=== PATIENT | female | born 1965 | race Caucasian/White ===

== ENCOUNTER 2022-09-21 18:54 | Emergency (ER) | payer OTHER, SELFPAY ==
--- NOTE | ~2022-09-21 | CT_ITS ---
EXAMINATION: CT ABDOMEN AND PELVIS WITHOUT CONTRAST CLINICAL INFORMATION: Left lower abdominal pain. COMPARISON: None available. TECHNIQUE: Multidetector volumetric imaging was performed from the superior aspect of the liver through the pubic symphysis. Sagittal and coronal reformatted images were obtained on the technologist's workstation. This CT examination was performed using dose optimization techniques as appropriate, variously including the following: *Automated exposure control *Adjustment of mA and/or kV according to patient size (this includes techniques or standardized protocols for targeted exams where dose is matched to indication/reason for exam; i.e. extremities or head) *Use of iterative reconstruction technique DLP: 612 mGy-cm FINDINGS: LUNG BASES: The lung bases are clear. Coronary artery calcifications are present. LIVER, GALLBLADDER, AND BILIARY TREE: The liver is normal in size, shape, and attenuation. No biliary ductal dilatation there is a 0.7 cm hypoattenuating lesion in segment 6 of the liver which is too small to further characterize.. The gallbladder is unremarkable with no evidence of radiopaque gallstones, gallbladder wall thickening, or obvious pericholecystic inflammatory changes. PANCREAS: Unremarkable. SPLEEN: Unremarkable. ADRENAL GLANDS: Unremarkable. KIDNEYS AND URETERS: The kidneys are normal in size, shape, and attenuation. Mild left hydronephrosis. 0.4 cm calculus in the proximal left ureter at the level of L2-L3. BLADDER: Unremarkable. GASTROINTESTINAL TRACT: The stomach is unremarkable. Normal caliber of the small bowel. No obstruction. Normal appendix. Colonic diverticulosis without diverticulitis. No wall thickening or inflammation. No free air or free fluid. ABDOMINAL WALL: No significant hernia is appreciated. LYMPH NODES: Normal. VASCULAR: Normal caliber aorta with moderate atherosclerotic calcification. PELVIC VISCERA: The uterus and adnexa are unremarkable. OSSEOUS STRUCTURES: No acute or suspicious osseous abnormality. Degenerative change throughout the spine. Vacuum disc phenomenon seen throughout the lumbar spine. Grade 1 retrolisthesis of L5 on S1. Grade 1 anterolisthesis of L4 on L5. CT/CT abdomen pelvis wo IV con IMPRESSION: Mild left hydronephrosis with a 0.4 cm calculus in the proximal left ureter. Fleischner guidelines were followed.
[2022-09-21 19:19] VITALS: BP 146/86; PULSE 80; RESP 18; TEMP 36.8; O2SAT 94
--- NOTE | 2022-09-21 19:20 | ED.GENADULT ---
HPI - General Adult General Chief complaint: Recheck/Abnormal Lab/Rx Stated complaint: abnormal labs Time Seen by Provider: 09/21/22 22:47 Source: patient Mode of arrival: ambulatory Limitations: no limitations History of Present Illness HPI narrative: Patient no significant past medical history complaining of left lower abdominal pain for last 3 days was at [facility] but left without being seen by MD labs drawn showed elevated WBC count patient continued to have pain off and on has gone now no fever no chills no blood in the stool, no urinary complaints never had similar pain in the past Related Data Previous Rx's Medication Instructions Recorded cefuroxime axetil 250 mg tablet 250 mg PO BID 7 days #14 tabs 09/22/22 oxycodone-acetaminophen 5 mg-325 1 tab PO Q6H PRN pain #20 tabs 09/22/22 mg tablet (Percocet) Allergies Allergy/AdvReac Type Severity Reaction Status Date / Time codeine Allergy Unknown Unknown Verified 09/21/22 19:24 latex Allergy Unknown Unknown Verified 09/21/22 19:24 Review of Systems Review of Systems: Yes all other systems are reviewed and are negative REPLACED BY [facility] Social History Social History Advance Directives: No Advance Directives Information Provided: Yes Physical Exam ED Vital Signs: Vital Signs - 24 hr 09/21/22 19:19 09/21/22 23:30 Temperature 98.3 F 97.0 F Pulse Rate 80 79 Respiratory Rate 18 18 Blood Pressure 146/86 H 125/68 Pulse Oximetry 94 94 Oxygen Delivery Method Room Air Room Air BMI result Body Mass Index 30.0 Appearance: Alert. Oriented X3. No acute distress. Eyes: PERRLA, No Nystagmus ENT: Pharynx normal. Oral Mucosa moist Neck: Normal inspection. Neck supple. CVS: Normal heart rate and rhythm. Pulses normal. Respiratory: No respiratory distress. Equal air entry bilateral, no wheezing/rales/rhonchi Abdomen: Soft , mild deep tenderness left lower quadrant. Bowel sounds are present, no mass palpable, no CVA tenderness Skin: Skin warm and dry. Normal skin color. Normal skin turgor. Extremities: No lower extremity edema. No calf tenderness Neuro: Oriented X 3. No motor deficit. Course Course Course Narrative: RME: 57yo F w/no sig PMHx sent in by PCP for abnormal WBC count & low K+ on labs at [facility] ED on Wednesday. Patient eloped after triage due to wait time. Admits to L sided abdominal pain, burping, gas pains. Denies nausea, fever, urinary sx abdomen soft w/LLQ ttp, no rebound or guarding Labs, UA ordered * obtained records from [facility] from 09/19/2022, patient had WBC count of 19.6, potassium 3.4 Full HPI, ROS and PE to be performed by primary ED provider. Medications Administered Discontinued Medications Generic Name Dose Route Start Last Admin Trade Name Freq PRN Reason Stop Dose Admin Cefuroxime Axetil 250 mg 09/22/22 00:55 09/22/22 01:09 Cefuroxime Axetil 250 Mg Tablet PO 09/22/22 00:56 250 mg ONCE ONE Administration Oxycodone HCl 10 mg 09/22/22 00:55 09/22/22 01:09 Oxycodone Hcl Immed Release 5 Mg Tablet PO 09/22/22 00:56 10 mg ONCE ONE Administration Potassium Chloride 20 meq 09/22/22 00:57 09/22/22 01:09 Potassium Chloride Er 20 Meq Tab.Er.Prt PO 09/22/22 00:58 20 meq ONCE ONE Administration Medical Decision Making Medical Decision Making [facility] Narrative: Patient abdominal pain CT scan showed small 4 mm left ureteric stone patient is almost pain-free with discharge patient on pain medication so advised to follow-up with urologist Differential Diagnosis Differential Diagnoses: The differential diagnosis associated with the presentation includes Kidney stone/diverticulitis/diverticulosis/IBS/constipation Lab Data [facility] Lab Attestation statement: I reviewed the patient's lab results. 09/21/22 20:21 09/21/22 20:21 Labs: Lab Results 09/21/22 09/21/22 09/21/22 Range/Units 20:21 20:21 23:33 WBC 13.4 H (4.8-10.8) X10*3/uL RBC 3.90 L (4.20-5.50) X10*6/uL Hgb 12.7 (12.0-16.0) g/dl Hct 37.5 (37.0-47.0) % MCV 96.2 (80.0-98.0) fL MCH 32.6 (27.0-33.0) pg MCHC 33.9 (31.0-35.0) g/dl RDW 13.0 (11.0-16.0) % Plt Count 258 (160-400) X10*3/uL MPV 10.3 (9.4-12.3) fL Immature Gran % (Auto) 0.7 H (0.0-0.4) % Neut % (Auto) 52.8 (45-73) % Lymph % (Auto) 36.8 (20-40) % [place] % (Auto) 8.2 (2-11) % Eos % (Auto) 0.9 (0-4) % Baso % (Auto) 0.6 (0-2) % Lymph # (Auto) 5.0 H (1.2-4.9) X10*3/uL [place] # (Auto) 1.1 (0.1-1.2) X10*3/uL Eos # (Auto) 0.1 (0.0-0.4) X10*3/uL Baso # (Auto) 0.1 (0.0-0.2) X10*3/uL Abs Immat Gran (auto) 0.09 H (0.00-0.03) X10*3/uL Absolute Neuts (auto) 7.1 (2.0-8.3) x10*3/uL Absolute Nucleated RBC 0.000 (0.0-0.012) X10*3/uL Nucleated RBC % (auto) 0.0 (0.0-0.2) /100WBC Sodium 140 (135-145) mmol/L Potassium 3.1 L (3.3-5.1) mmol/L Chloride 103 (96-108) mmol/L Carbon Dioxide 29 (22-29) mmol/L Anion Gap 11 L (12-20) BUN 15 (9-16) mg/dL Creatinine 0.76 (0.5-1.4) mg/dL Estim Creat Clear Calc 84.1 Estimated GFR > 60 Random Glucose 113 (60-115) mg/dL Calcium 9.6 (8.4-10.2) mg/dL Magnesium 2.0 (1.6-2.6) mg/dL Total Bilirubin 0.4 (0.0-1.0) mg/dL Direct Bilirubin 0.1 (0.0-0.5) mg/dL AST 22 (5-31) U/L ALT 17 (0-31) U/L Alkaline Phosphatase 87 (39-117) U/L Total Protein 7.4 (6.5-8.0) g/dL Albumin 3.8 (3.5-5.0) g/dL Lipase 13 (8-78) U/L Urine Color Yellow Urine Appearance Clear Urine pH 6.0 (5.0-9.0) Ur Specific [place] 1.020 (1.005-1.025) Urine Protein Trace (Neg-Trace) mg/dL Urine Glucose (UA) Negative (Negative) mg/dL Urine Ketones Negative (Negative) mg/dL Urine Blood Trace H (Negative) Urine Nitrite Negative (Negative) Ur Leukocyte Esterase Small (1+) H (Negative) Urine RBC 3-5 H (0-2) /HPF Urine WBC 6-10 H (0-5) /HPF Ur Squamous Epith Cells 6-10 (0-2) /HPF Urine Bacteria None Seen (None Seen) Hyaline Casts 0-2 (0-2) /LPF Discharge Plan Discharge Clinical Impression: Kidney stone on left side, UTI (urinary tract infection) Patient Disposition: Home, Self-Care Instructions: Kidney Stones (ED), Urinary Tract Infection in Women (ED) Additional Instructions: You have a 4 mm stone on the left side which likely going to pass Pain medication as prescribed Drink plenty of fluids you have slight bacteria in the urine possible infection take antibiotic as prescribed Follow-up with urologist if pain continues Prescriptions: New cefuroxime axetil 250 mg tablet 250 mg PO BID 7 Days Qty: 14 0RF oxycodone-acetaminophen [Percocet] 5-325 mg tablet 1 tab PO Q6H PRN (Reason: pain) Qty: 20 0RF Rx Instructions: Partial Fill upon patient request. Referrals: Chintan George MD [Physician] - 1 week Interventions: ED Discharge Assessment Last Done: 09/22/22 01:16 Discharge Date/Time: 09/22/22 01:16
[2022-09-21 20:26] LABS: MANUAL DIFF FLAG NO
[2022-09-21 20:41] LABS: Alanine Aminotransferase 17 U/L (0-31); Albumin Level 3.8 g/dL (3.5-5.0); Alkaline Phosphatase 87 U/L (39-117); Anion Gap 11 (12-20); Aspartate Amino Transferase 22 U/L (5-31); Bilirubin Direct 0.1 mg/dL (0.0-0.5); Bilirubin Total 0.4 mg/dL (0.0-1.0); Blood Urea Nitrogen 15 mg/dL (9-16); Calcium 9.6 mg/dL (8.4-10.2); Carbon Dioxide 29 mmol/L (22-29); Chloride 103 mmol/L (96-108); Creatinine Clr Calc Pharmacy 84.1; Estimated Glomerular Filt Rate > 60; Glucose Random 113 mg/dL (60-115); Lipase 13 U/L (8-78); Potassium 3.1 mmol/L (3.3-5.1); Sodium 140 mmol/L (135-145); Total Protein 7.4 g/dL (6.5-8.0)
[2022-09-21 20:44] LABS: Basophils Absolute Auto 0.1 X10*3/uL (0.0-0.2); Basophils Percent Auto 0.6 % (0-2); Eosinophils Absolute Auto 0.1 X10*3/uL (0.0-0.4); Eosinophils Percent Auto 0.9 % (0-4); Hematocrit 37.5 % (37.0-47.0); Hemoglobin 12.7 g/dl (12.0-16.0); Imm Gran Abs Auto 0.09 X10*3/uL (0.00-0.03); Imm Gran Pct Auto 0.7 % (0.0-0.4); Lymphocytes Percent Auto 36.8 % (20-40); Mean Corpuscular HGB Conc 33.9 g/dl (31.0-35.0); Mean Corpuscular Hemoglobin 32.6 pg (27.0-33.0); Mean Corpuscular Volume 96.2 fL (80.0-98.0); Mean Platelet Volume 10.3 fL (9.4-12.3); Monocytes Absolute Auto 1.1 X10*3/uL (0.1-1.2); Monocytes Percent Auto 8.2 % (2-11); Neutrophils Absolute Auto 7.1 x10*3/uL (2.0-8.3); Neutrophils Percent Auto 52.8 % (45-73); Platelet Count 258 X10*3/uL (160-400); White Blood Count 13.4 X10*3/uL (4.8-10.8)
[2022-09-21 23:30] VITALS: BP 125/68; PULSE 79; RESP 18; TEMP 36.1; O2SAT 94
[2022-09-21 23:47] LABS: Appearance Urine Clear; Color Urine Yellow; Glucose Urine UA Negative (Negative); Leukocyte Esterase Urine Small (1+) (Negative); Nitrite Urine Negative (Negative); UMIC TRIGGER UACC YES; Urine Blood Trace (Negative); Urine Ketones Negative (Negative); Urine Protein Trace mg/dL (Neg-Trace)
[2022-09-21 23:51] LABS: Bacteria Urine None Seen (None Seen); Hyaline Casts Urine 0-2 /LPF (0-2); UACC Culture Trigger YES
[2022-09-22] MEDS: oxyCODONE HCl Immed Release 5 MG TABLET 10 MG PO (01:09)
[2022-09-22] MEDS: Potassium Chloride ER 20 MEQ TAB.ER.PRT PO (01:09)
== END 2022-09-22 01:16 | disposition home or self-care (01) ==
PROVIDERS: Physician Assistant; Emergency Provider Internal Medicine
DX: N13.2 Hydronephrosis with renal and ureteral calculous obstruction (principal); N39.0 Urinary tract infection, site not specified; R10.30 Lower abdominal pain, unspecified
CPT/HCPCS: 36415; 74176; 80048; 80076; 81001; 83690; 83735; 85025; 87086; 99283; 99284

== ENCOUNTER 2022-10-15 18:12 | Emergency (ER) | payer OTHER, SELFPAY ==
--- NOTE | ~2022-10-15 | XR_ITS ---
EXAMINATION: XR ABDOMEN KUB CLINICAL INDICATION: Pain. Question renal colic. COMPARISON: CT dated 09/22/2022 TECHNIQUE: AP view of the abdomen. FINDINGS: The bowel gas pattern is normal with no evidence of ileus or obstruction. Ovoid 4 mm calcification is again seen in the left midabdomen at the level of the L2-L3 intervertebral disc, corresponding to the calculus seen at the left UPJ on the prior CT. Location appears unchanged as compared to prior. No new calculi are identified. Degenerative spondylosis is present in the lumbar spine. No acute osseous findings XR/XR KUB IMPRESSION: 1. Unchanged location of the 4 mm calculus at the left UPJ. No new calculi are identified. 2. Nonobstructive bowel gas pattern.
[2022-10-15 18:50] VITALS: BP 130/86; PULSE 86; RESP 18; TEMP 36.8; O2SAT 95; BMI 30.8
--- NOTE | 2022-10-15 18:51 | ED_ITS ---
HPI - Abdominal Pain General Chief Complaint: Abdominal Pain Stated Complaint: stomach pain Time Seen by Provider: 10/15/22 22:14 Source: patient Mode of arrival: ambulatory History of Present Illness HPI narrative: 57-year-old female presents with suprapubic discomfort for the past couple days without fever, chills, nausea, vomiting into continues to pass flatus and have bowel movements. Related Data Previous Rx's Medication Instructions Recorded cefuroxime axetil 250 mg tablet 250 mg PO BID 7 days #14 tabs 09/22/22 oxycodone-acetaminophen 5 mg-325 1 tab PO Q6H PRN pain #20 tabs 09/22/22 mg tablet (Percocet) prednisone 20 mg tablet 20 mg PO DAILY #4 tabs 10/15/22 tamsulosin 0.4 mg capsule (Flomax) 0.4 mg PO BEDTIME #4 caps 10/15/22 Allergies Allergy/AdvReac Type Severity Reaction Status Date / Time codeine Allergy Unknown Unknown Verified 09/21/22 19:24 latex Allergy Unknown Unknown Verified 09/21/22 19:24 Review of Systems Review of Systems Pertinent positives and negatives as stated HPI PMFSH Past Medical History Source: nursing notes reviewed Social History Social History Alcohol intake: never Smoked in Last 30 Days: Yes Use of substances other than those prescribed or required for medical reasons: Yes Substance Use Type: Marijuana Substance Use Frequency: Daily Advance Directives: No Advance Directives Information Provided: No Physical Exam ED Vital Signs: Vital Signs - 24 hr 10/15/22 18:50 10/15/22 21:27 Temperature 98.3 F 98.2 F Pulse Rate 86 77 Respiratory Rate 18 16 Blood Pressure 130/86 144/87 H Pulse Oximetry 95 98 Oxygen Delivery Method Room Air Room Air BMI result Body Mass Index 30.8 VITAL SIGNS: Reviewed. GENERAL: Well developed, well nourished, in no acute distress. HEAD: Normocephalic/atraumatic EYES: PERRLA, EOMI EARS: Ext canals without abnormality NOSE: Nares patent bilateral OROPHARYNX: no oral lesions noted, posterior pharynx clear NECK: Supple, no adenopathy LUNGS: Normal breath sounds. No adventitious sounds or accessory muscle use. SpO2<98> CARDIOVASCULAR: Regular rate and rhythm without noted murmurs ABDOMEN: Soft, non-tender, non-distended with bowel sounds. MUSCULOSKELETAL: No tenderness, deformities, or effusions noted on gross inspection. EXTREMITIES: No cyanosis, clubbing or edema. SKIN: Inspection of the skin reveals no rashes NEUROLOGIC: Alert and oriented x 4. Strength and sensation to light touch were grossly intact x 4. Course Course Course Narrative: This is a rapid medical exam. deferred additional HPI, ROS, PE to primary provider. 57 yo female with history of HTN, HLD, anxiety, depression here with complaints of LLQ abdominal pain No urinary symptoms, constipation/diarrhea, fever, vomiting Seen here for renal colic, UTI 09/21. Will obtain labs, UA Medical Decision Making Medical Decision Making MDM Narrative: 57-year-old female with history and clinical presentation, DDX: Renal colic, UTI very low clinical suspicion for diverticulitis or appendicitis. I reviewed all investigations and hematologic indices show a very mild leukocytosis without left shift, no anemia or thrombocytopenia, chemistry indices grossly within normal limits without JERED and no electrolyte or liver enzyme abnormalities. Urinalysis demonstrates hematuria but no evidence of bacteria/wbc's and suspect that this is related to kidney stone and will proceed with KUB for further evaluation. On review of KUB renal calculus is still there and will refer the patient. Differential Diagnosis Differential Diagnoses: The differential diagnosis associated with the presentation includes Please see the discussion above Admission/Observation Consideration of admission/observation: Escalation of care including admission/observation considered Please see the discussion above Lab Data [facility] Lab Attestation statement: I reviewed the patient's lab results. Please see the discussion above 10/15/22 19:29 10/15/22 19:29 Labs: Lab Results 10/15/22 10/15/22 Range/Units 19:29 19:32 WBC 11.5 H (4.8-10.8) X10*3/uL RBC 4.13 L (4.20-5.50) X10*6/uL Hgb 13.6 (12.0-16.0) g/dl Hct 39.4 (37.0-47.0) % MCV 95.4 (80.0-98.0) fL MCH 32.9 (27.0-33.0) pg MCHC 34.5 (31.0-35.0) g/dl RDW 13.4 (11.0-16.0) % Plt Count 258 (160-400) X10*3/uL MPV 10.0 (9.4-12.3) fL Immature Gran % (Auto) 0.2 (0.0-0.4) % Neut % (Auto) 50.3 (45-73) % Lymph % (Auto) 39.4 (20-40) % [place] % (Auto) 8.1 (2-11) % Eos % (Auto) 1.3 (0-4) % Baso % (Auto) 0.7 (0-2) % Lymph # (Auto) 4.6 (1.2-4.9) X10*3/uL [place] # (Auto) 0.9 (0.1-1.2) X10*3/uL Eos # (Auto) 0.2 (0.0-0.4) X10*3/uL Baso # (Auto) 0.1 (0.0-0.2) X10*3/uL Abs Immat Gran (auto) 0.02 (0.00-0.03) X10*3/uL Absolute Neuts (auto) 5.8 (2.0-8.3) x10*3/uL Absolute Nucleated RBC 0.000 (0.0-0.012) X10*3/uL Nucleated RBC % (auto) 0.0 (0.0-0.2) /100WBC Sodium 142 (135-145) mmol/L Potassium 3.4 (3.3-5.1) mmol/L Chloride 104 (96-108) mmol/L Carbon Dioxide 32 H (22-29) mmol/L Anion Gap 9 L (12-20) BUN 15 (9-16) mg/dL Creatinine 0.75 (0.5-1.4) mg/dL Estim Creat Clear Calc 86.4 Estimated GFR > 60 Random Glucose 87 (60-115) mg/dL Calcium 10.4 H D (8.4-10.2) mg/dL Total Bilirubin 0.2 (0.0-1.0) mg/dL Direct Bilirubin < 0.2 (0.0-0.5) mg/dL AST 18 (5-31) U/L ALT 16 (0-31) U/L Alkaline Phosphatase 100 (39-117) U/L Total Protein 7.7 (6.5-8.0) g/dL Albumin 4.1 (3.5-5.0) g/dL Lipase 59 (8-78) U/L Urine Color Dark Yellow Urine Appearance Clear Urine pH 5.5 (5.0-9.0) Ur Specific [place] >= 1.030 H (1.005-1.025) Urine Protein 30 (1+) H (Neg-Trace) mg/dL Urine Glucose (UA) Negative (Negative) mg/dL Urine Ketones Negative (Negative) mg/dL Urine Blood Trace H (Negative) Urine Nitrite Negative (Negative) Ur Leukocyte Esterase Trace H (Negative) Urine RBC 0-2 (0-2) /HPF Urine WBC 0-5 (0-5) /HPF Ur Squamous Epith Cells 3-5 (0-2) /HPF Calcium Oxalate Crystal Present Urine Bacteria None Seen (None Seen) Hyaline Casts 0-2 (0-2) /LPF Radiology Impression Discussion of test interpretation with radiology: I have reviewed the radiologist's reading. Radiologist Impression: Please see the discussion above External Record Review External record reviewed: Outpatient record, Prior outpatient labs and Prior outpatient radiology Discharge Plan Discharge Clinical Impression: Ureterolithiasis, Renal colic Patient Disposition: Home, Self-Care Instructions: Renal Colic (ED), Low Oxalate Diet (ED), Ureteral Stones (ED) Additional Instructions: 1. Increase the amount of water that you drink and try to avoid caffeinated and carbonated beverages. 2. Tylenol 1000 mg, orally, every 6 hours as needed for pain control. Do not exceed 4000 mg within 24 hours. 3. Ibuprofen 400 mg, orally with milk or food, every 6 hours as needed for pain control. 4. You will receive a prescription for Flomax, you are familiar with this medication, you will also receive a prescription for a small dose of steroid in these 2 are to help you pass your stone. 5. You must call the urologist in the morning to set up an appointment for re- evaluation. You may be this stone surgically removed. Return to the ER for any worsening symptoms. Prescriptions: New prednisone 20 mg tablet 20 mg PO DAILY Qty: 4 0RF tamsulosin [Flomax] 0.4 mg capsule 0.4 mg PO BEDTIME Qty: 4 0RF No Action cefuroxime axetil 250 mg tablet 250 mg PO BID 7 Days Qty: 14 0RF oxycodone-acetaminophen [Percocet] 5-325 mg tablet 1 tab PO Q6H PRN (Reason: pain) Qty: 20 0RF Rx Instructions: Partial Fill upon patient request. Referrals: Katherine Doss MD [Physician] -
--- OUTSIDE RECORDS SUMMARY | 2022-10-15 19:32 | XMS_ITS | Continuity of Care Document ---
Author Name Unknown Organization [facility] Address [address] [place] [address]- Care Team Providers Care Mold Swabber Name Role Phone Dominik Fenton DO Primary Care Physician Encounter [facility] Date(s): 06/13/21 - 07/17/21 [facility] [address] [place], [place] [address] Attending Physician: Not on Staff, Attending MD Allergies, Adverse Reactions, Alerts Substance Reaction Severity Status Vicodin Active Tylenol with Codeine #3 1 upset stomach A ctive Latex Active 1upset stoamach Immunizations Given and Recorded Vaccine Date Status Refusal Reason SARS-CoV-2 mRNA ([id number]) vax 03/20/21 Recorded SARS-CoV-2 (COVID-19) mRNA BNT-162b2 vac 02/27/21 Recorded tetanus/diphtheria/pertussis, acel(Tdap) 07/03/16 Given Medications albuterol CFC free 90 mcg/inh inhalation aerosol 2, puffs, Inhalation, Every 4 hours, PRN, # 6.7 Gm, Refills 0, Tot. Refills 0, Maintenance, 06/23/20 10:17:00 EDT, Aerosol, Route to Pharmacy Electronically, [id number], [facility]/pharmacy #[id number], 165, cm, 06/07/20 10:12:00 EDT, Height Start Date: 06/23/20 Status: Ordered amLODIPine 5 mg oral tablet 1 tablet, By Mouth, Daily, # 30 tablet, 2 Refills, [id number], 165, cm, 09/27/20 14:32:00 EDT,Height Start Date: 06/20/21 Status: Ordered atorvastatin 80 mg oral tablet 1 tablet, By Mouth, Daily, # 90 tablet, 1 Refills, 06/27/21 14:09:00 EDT, [facility]/pharmacy #[id number], 165, cm, 09/27/20 14:32:00 EDT, Height Start Date: 06/27/21 Status: Ordered cloNIDine 0.1 mg oral tablet 0.5, By Mouth, Daily at bedtime, PRN, # 30 tablet, Refills 5, Tot. Refills 5, Maintenance, Sleep, 08/03/19 12:54:00 EDT, Route to Pharmacy Electronically, [facility]/pharmacy #[id number], 165, cm, 03/03/19 9:23:00 EST, Height Start Date: 08/03/19 Stop Date: 01/30/20 Status: Ordered hydrochlorothiazide 25 mg oral tablet 1, tablet, By Mouth, Daily, # 90 tablet, Refills 1, Tot. Refills 1, Maintenance, 12/17/20 9:18:00 EST, [id number], cm, 09/27/20 14:32:00 EDT, Height Start Date: 12/17/20 Status: Ordered PARoxetine 40 mg oral tablet 1.5, tablet, By Mouth, Daily, # 45 tablet, Refills 3, Route to Pharmacy Electronically, [facility] STORE [id number], 165, cm, 09/27/20 14:32:00 EDT, Height Start Date: 06/20/21 Status: Ordered Problem List Condition Effective Dates Status Health Status Inform ant ASCUS favoring benign(Confirmed) 1 Active Breast abscess of female(Confirmed) Active ACL - Anterior cruciate ligament(Confirmed) 2 11/2009 Active Degenerative disc disease mo st severe at L5-S1 level(Confirmed) Active Hearing Loss(Confirmed) 3, 4 2000 Active History of tubal ligation(Confirmed) Active Hypertension(Confirmed) Active LBP - Low back pain(Confirmed) 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 Also, moderate bilateral formainal stenosis on 2009 MRI Social History Social History Type Response Smoking Status 5-9 cigarettes (betw een 1/4 to 1/2 pack)/day in last 30 days; Interested in cessation: No entered on: 06/07/20 Sex
--- OUTSIDE RECORDS SUMMARY | 2022-10-15 19:32 | XMS_ITS | Continuity of Care Document ---
Author Name Unknown Organization [facility] ter Address [address] [place] [address]- Care Team Providers Care Test Design Engineer Name Role Phone Dominik Fenton DO Primary Care Physician [phone] Encounter [facility] Date(s): 06/23/20 - 06/23/[address] [address]- Discharge Disposition: A-D/C Home Attending Physician: Delio Garcia MD Admitting Physician: Delio Garcia MD Referring Physician: Not on Staff, Referring MD Allergies, Adverse Reactions, Alerts Substance Reaction Severity Status Vicodin Active Tylenol with Codeine #3 1 upset stomach A ctive Latex Active 1upset stoamach Immunizations Given and Recorded Vaccine Date Status Refusal Reason tetanus/diphtheria/pertussis, acel(Tdap) 07/03/16 Given Medications albuterol CFC free 90 mcg/inh inhalation aerosol 2, puffs, Inhalation, Every 4 hours, PRN, # 6.7 Gm, Refills 0, Tot. Refills 0, Maintenance, 06/23/20 10:17:00 EDT, Aerosol, Route to Pharmacy Electronically, [id number], [facility]/pharmacy #[id number], 165, cm, 06/07/20 10:12:00 EDT, Height Start Date: 06/23/20 Status: Ordered amLODIPine 5 mg oral tablet 5 mg, 1, tablet, By Mouth, Daily, # 90 tablet, Refills 0, Tot. Refills 0, Maintenance, 03/31/20 15:06:00 EST, Route to Pharmacy Electronically, [facility]/pharmacy #[id number], 165, cm, 01/18/20 15:16:00 EST, Height Start Date: 03/31/20 Stop Date: 06/29/20 Status: Ordered atorvastatin 80 mg oral tablet 1 tablet = 80 mg, By Mouth, Daily, # 90 tablet, 2 Refills, Maintenance, 09/08/19 18:08:00 EDT, Tablet, [facility]/pharmacy #1026, 165, cm, 03/03/19 9:23:00 EST, Height Start Date: 09/08/19 Status: Ordered cloNIDine 0.1 mg oral tablet 0.5, By Mouth, Daily at bedtime, PRN, # 30 tablet, Refills 5, Tot. Refills 5, Maintenance, Sleep, 08/03/19 12:54:00 EDT, Route to Pharmacy Electronically, [facility]/pharmacy #1026, 165, cm, 03/03/19 9:23:00 EST, Height Start Date: 08/03/19 Stop Date: 01/30/20 Status: Ordered hydrochlorothiazide 25 mg oral tablet 1, tablet, By Mouth, Daily, # 90 tablet, Refills 0, Tot. Refills 0, Maintenance, 06/20/20 9:08:00 EDT, Route to Pharmacy Electronically, [id number], 165, cm, 06/07/20 10:12:00 EDT, Height Start Date: 06/20/20 Status: Ordered MorPHINE Inj 4 mg, Injection, IV Push Slowly, Once, STAT, 06/23/20 9:42:00 EDT, Stop date 06/23/20 9:42:00 EDT Start Date: 06/23/20 Stop Date: 06/23/20 Status: Completed oxyCODONE 5 mg oral capsule 1 capsule = 5 mg, By Mouth, Every 6 hours, PRN as needed for pain, # 3 capsule, 0 Refills, Acute 06/24/20 10:17:00 EDT, 06/23/20 10:17:00 EDT, Capsule, [facility]/pharmacy #[id number], Partial fill upon patient request if the prescription is for a schedule II opio... Start Date: 06/23/20 Stop Date: 06/24/20 Status: Ordered PARoxetine 40 mg oral tablet See Instructions, TAKE 1.5 TABLETS BY MOUTH DAILY, # 45 tablet, Refills 5, Maintenance, Instructions Replace Required Details, Route to Pharmacy Electronically, [id number], 165, cm, 04/08/20 14:53:00 EST, Height Start Date: 05/21/20 Status: Ordered Problem List Condition Effective Dates [...] lumbar region(Confirmed) 5 2005 Active 1repeat PAP 02/22 2tear on MRI - ordered ?by Ortho 3states she had multiple ear infections as a child 4right ear since 2000 or earlier 5mild, acquired on 2008 MRI. Also, moderate bilateral formainal stenosis on 2008 MRI Vital Signs Most recent to oldest [Reference Range]: 1 2 3 Oxygen Saturation [94-100 %] 93 % *L* (06/23/20 12:07 PM) 95 % (06/23/20 10:46 AM) 95 % (06/23/20 10:07 AM) Pulse Rate [55-90 bpm] 75 bpm (06/23/20 12:07 PM) 88 bpm (06/23/20 10:46 AM) 86 bpm (06/23/20 10:07 AM) Blood Pressure [90-138/55-84 mm Hg] 102/70mm Hg (06/23/20 12:07 PM) 140/71mm Hg *H* (06/23/20 10:46 AM) 149/63mm Hg *H* (06/23/20 10:07 AM) Respiratory Rate [16-30 br/min] 20 br/min (06/23/20 12:07 PM) 16 br/min (06/23/20 10:46 AM) 20 br/min (06/23/20 10:33 AM) Temperature [96.8-100.4 DegF] 98 DegF (06/23/20 10:46 AM) 98 DegF (06/23/20 7:42 AM) 98.6 DegF (06/23/20 3:43 AM) Mode of Delivery (Oxygen) Room air (06/23/20 10:46 AM) Room air (06/23/20 7:42 AM) Blood pressure sites Arm, left (06/23/20 10:46 AM) Arm, left (06/23/20 10:07 AM) Temperature Route Oral (06/23/20 10:46 AM) Oral (06/23/20 7:42 AM) Social History Social History Type Response Smoking Status 5-9 cigarettes (betw een 1/4 to 1/2 pack)/day in last 30 days; Interested in cessation: No entered on: 06/07/20 Sex
--- OUTSIDE RECORDS SUMMARY | 2022-10-15 19:32 | XMS_ITS | Continuity of Care Document ---
Author Name Unknown Organization [facility] Address [address] [place] [address]- Care Team Providers Care Business Lawyer Name Role Phone Dominik Fenton DO Primary Care Physician [phone] Encounter [facility] Date(s): 11/04/20 - 12/04/20 [facility] [address] [place], [place] [address] Allergies, Adverse Reactions, Alerts Substance Reaction Severity [...] 10:17:00 EDT, Aerosol, Route to Pharmacy Electronically, [id number], [facility]/pharmacy #1026, 165, cm, 06/07/20 10:12:00 EDT, Height Start Date: 06/23/20 Status: Ordered amLODIPine 5 mg oral tablet 1 tablet, By Mouth, Daily, # 90 tablet, 0 Refills, Maintenance, 09/16/20 14:17:00 EDT, [facility], 165, cm, 08/28/20 10:55:00 EDT, Height Start Date: 09/16/20 Status: Ordered atorvastatin 80 mg oral tablet 1 tablet = 80 mg, By Mouth, Daily, # 90 tablet, 1 Refills, Maintenance, 06/24/20 15:16:00 EDT, Tablet, [facility]/pharmacy #1026, 165, cm, 06/07/20 10:12:00 EDT, Height Start Date: 06/24/20 Status: Ordered cloNIDine 0.1 mg oral tablet 0.5, By Mouth, Daily at bedtime, PRN, # 30 tablet, Refills 5, Tot. Refills 5, Maintenance, Sleep, 08/03/19 12:54:00 EDT, Route to Pharmacy Electronically, [facility]/pharmacy #1026, 165, cm, 03/03/19 9:23:00 EST, Height Start Date: 08/03/19 Stop Date: 01/30/20 Status: Ordered hydrochlorothiazide 25 mg oral tablet 1, tablet, By Mouth, Daily, # 90 tablet, Refills 1, Tot. Refills 1, Maintenance, 09/17/20 6:39:00 EDT, Route to Pharmacy Electronically, [facility]/pharmacy #1026, 165, cm, 08/28/20 10:55:00 EDT, Height Start Date: 09/17/20 Status: Ordered PARoxetine 40 mg oral tablet See Instructions, TAKE 1.5 TABLETS BY MOUTH DAILY, # 45 tablet, Refills 5, Tot. Refills 5, 216:39:00 EDT, Instructions Replace Required Details, Route to Pharmacy Electronically, [facility]/pharmacy #1026, 165, cm, 08/28/20 10:55:00 EDT, Height Start Date: 09/17/20 Status: Ordered Problem List Condition Effective Dates [...] since 2000 or earlier 5mild, acquired on 2009 MRI. Also, moderate bilateral formainal stenosis on 2009 MRI Social History Social History Type Response Smoking Status 5-9 cigarettes (betw een 1/4 to 1/2 pack)/day in last 30 days; Interested in cessation: No entered on: 06/07/20 Sex
--- OUTSIDE RECORDS SUMMARY | 2022-10-15 19:32 | XMS_ITS | Continuity of Care Document ---
Author Name Unknown Organization [facility] Address [address] [place] [address]- Care Team Providers Care Stave Log Ripsaw Operator Name Role Phone Kaesaji Merle MICHAEL Primary Care Physician Encounter [facility] [place] Date(s): 03/02/19 - 03/12/19 [facility] [address] [place] [address]- [facility] Attending Physician: Lauren Wallis Admitting Physician: AdmtrLauren Referring Physician: Admtr, Lauren Allergies, Adverse Reactions, Alerts Substance Reaction Severity Status Vicodin Active Tylenol with Codeine #3 1 upset stomach A ctive Latex Active 1upset stoamach Immunizations Given and Recorded Vaccine Date Status Refusal Reason tetanus/diphtheria/pertussis, acel(Tdap) 07/03/16 Given Medications amLODIPine 5 mg oral tablet 5 mg, 1, tablet, By Mouth, Daily, # 90 tablet, Refills 2, Tot. Refills 2, Maintenance, 12/16/18 14:39:19 EST, Route to Pharmacy Electronically, [id number], [facility]/pharmacy #1026 Start Date: 12/16/18 Stop Date: 09/12/19 Status: Ordered atorvastatin 80 mg oral tablet 1 tablet = 80 mg, By Mouth, Daily, # 90 tablet, 2 Refills, Maintenance, 12/16/18 14:39:27 EST, Tablet Start Date: 12/16/18 Status: Ordered chlorhexidine 4% topical soap See Instructions, Apply Topically Once a week to affected areas, # 240 mL, 0 Refills, Soft Stop, 03/10/19 18:18:00 EST, [facility]/pharmacy #1026, Apply Topically Once a week to affected areas, 165, cm, 03/03/19 9:23:00 EST, Height Start Date: 03/10/19 Status: Ordered cloNIDine 0.1 mg oral tablet 0.5, By Mouth, Daily at bedtime, PRN, # 15 tablet, Refills 5, Tot. Refills 5, Maintenance, Insomnia, 02/05/18 22:57:38 EST, Route to Pharmacy Electronically, [id number], [facility]/pharmacy #1026 Start Date: 02/05/18 Stop Date: 08/04/18 Status: Ordered cloNIDine 0.1 mg oral tablet 0.5, By Mouth, Daily at bedtime, PRN, # 30 tablet, Refills 5, Tot. Refills 5, Maintenance, Sleep, 07/30/18 20:00:00 EDT, Route to Pharmacy Electronically, [id number], [facility]/pharmacy #1026 Start Date: 07/30/18 Stop Date: 01/26/19 Status: Ordered hydrochlorothiazide 25 mg oral tablet 25 mg, 1, tablet, By Mouth, Daily, # 90 tablet, Refills 2, Tot. Refills 2, Maintenance, 12/16/18 14:39:27 EST, Route to Pharmacy Electronically, [id number], [facility]/pharmacy #1026 Start Date: 12/16/18 Stop Date: 09/12/19 Status: Ordered ibuprofen 800 mg oral tablet 800 mg, 1, tablet, By Mouth, 3 times a day, PRN, # 30 tablet, Refills 2, Tot. Refills 2, Maintenance, Pain, 12/08/16 17:13:13, Route to Pharmacy Electronically, [id number], [facility]/pharmacy #1026 Start Date: 12/08/16 Status: Ordered Melatonin 5 mg oral tablet 1 tablet = 5 mg, By Mouth, Daily at bedtime, PRN for insomnia, # 60 tablet, 0 Refills, Acute 05/01/19 12:00:00 EDT, 03/02/19 16:06:00 EST, Tablet, [facility]/pharmacy #1026, 165, cm, 12/05/18 14:04:00 EDT, Height Start Date: 03/02/19 Stop Date: 05/01/19 Status: Ordered nicotine 10 mg inhalation device See Instructions, use 6 - 12 cartridges per day for up to 12 weeks, then taper number of cartridgesgradually, # 360 cartridge, 1 Refills, Maintenance, 05/25/18 8:39:29 EDT, use 6 - 12 cartridges perday for up to 12 weeks, then taper number of cartri... Start Date: 05/25/18 Status: Ordered Paxil 40 mg oral tablet 60 mg, 1.5, tablet, By Mouth, Daily, # 45 tablet, Refills 5, Tot. Refills 5, Maintenance, 02/05/18 22:57:40 EST, Route to Pharmacy Electronically, [id number], [facility]/pharmacy #1026 Start Date: 02/05/18 Status: Ordered Paxil 40 mg oral tablet 60 mg, 1.5, tablet, By Mouth, Daily at bedtime, PRN, # 30 tablet, Refills 5, Tot. Refills 5, Maintenance, Sleep, 12/16/18 14:39:20 EST, Route to Pharmacy Electronically, [id number], [facility]/pharmacy #1026 Start Date: 12/16/18 Stop Date: 06/14/19 Status: Ordered traZODone 100 mg oral tablet 200 mg, 2, tablet, By Mouth, Daily at bedtime, # 60 tablet, Refills 5, Tot. Refills 5, Maintenance,02/05/18 22:57:41 EST, Route to Pharmacy Electronically, [id number], [facility]/pharmacy #1026 Start Date: 02/05/18 Status: Ordered traZODone 100 mg oral tablet 200 mg, 2, tablet, By Mouth, Daily at bedtime, PRN, # 30 tablet, Refills 5, Tot. 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 Also, moderate bilateral formainal stenosis on 2009 MRI Social History Social History Type Response Smoking Status Current every day sm oker; Other: 0.5 to one pack of cigarettes per day; entered on: 10/04/14 Sex
--- OUTSIDE RECORDS SUMMARY | 2022-10-15 19:32 | XMS_ITS | Continuity of Care Document ---
Author Name Unknown Organization [facility] Address [address] [place] [address]- Care Team Providers Care Machinist Automotive Name Role Phone Dominik Fenton DO Primary Care Physician [phone] Encounter [facility] Date(s): 06/16/22 - 07/16/22 [facility] [address], [place] [address] Encounter Diagnosis Screening cholesterol level(Discharge Diagnosis) - 05/06/19 Diabetes mellitus screening(Discharge Diagnosis) - 05/06/19 Syncope(Discharge Diagnosis) - 05/06/19 Attending Physician: Lauren Wallis Admitting Physician: Lauren Wallis Referring Physician: AdmLauren gonzalez Allergies, Adverse Reactions, Alerts Substance Reaction Severity Status Vicodin Active Tylenol with Codeine #3 1 upset stomach A ctive Latex Active 1upset stoamach Immunizations Given and Recorded Vaccine Date Status Refusal Reason SARS-CoV-2 mRNA ([id number]) vax 03/20/21 Recorded SARS-CoV-2 (COVID-19) mRNA BNT-162b2 vac 02/27/21 Recorded tetanus/diphtheria/pertussis, acel(Tdap) 07/03/16 Given Medications amLODIPine 5 mg oral tablet 1 tablet, By Mouth, Daily, # 30 tablet, 5 Refills, Maintenance, 03/26/22 15:18:00 EST, [facility], 165, cm, 01/23/22 20:28:00 EST, Height, 84, kg, 01/23/22 20:28:00 EST, Dry Weight Start Date: 03/26/22 Status: Ordered atorvastatin 80 mg oral tablet 1 tablet, By Mouth, Daily, # 90 tablet, 1 Refills, 05/26/22 15:11:00 EDT, [facility], 165, cm, 05/01/22 15:25:00 EDT, Height, 84, kg, 01/23/22 20:28:00 EST, Dry Weight Start Date: 05/26/22 Status: Ordered cloNIDine 0.1 mg oral tablet 0.5, By Mouth, Daily at bedtime, PRN, # 30 tablet, Refills 5, Tot. Refills 5, Maintenance, Sleep, 08/03/19 12:54:00 EDT, Route to Pharmacy Electronically, [facility]/pharmacy #1026, 165, cm, 03/03/19 9:23:00 EST, Height Start Date: 08/03/19 Stop Date: 01/30/20 Status: Ordered hydrochlorothiazide 25 mg oral tablet 1, tablet, By Mouth, Daily, # 30 tablet, Refills 2, Maintenance, 04/23/22 18:40:00 EDT, Route to Pharmacy Electronically, [facility], 165, cm, 04/13/22 13:54:00 EST, Height, 84, kg, 01/23/22 20:28:00 EST, Dry Weight Start Date: 04/23/22 Status: Ordered naproxen 500 mg (as sodium) oral tablet, extended release 1 to 2 tablet, By Mouth, Daily, PRN as needed for arthritis, # 20 each, 0 Refills, Maintenance, 05/27/22 19:56:00 EDT, ER Tablet, [facility]/pharmacy #1026, Partial fill upon patient request if the prescription is for a schedule II opioid drug., 165, cm, ... Start Date: 05/27/22 Status: Ordered PARoxetine 40 mg oral tablet 1.5, tablet, By Mouth, Daily, (TOTAL DOSE OF 60 MG DAILY), # 45 tablet, Refills 6, Maintenance, 06/19/22 11:47:00 EDT, Route to Pharmacy Electronically, [facility], 165, cm, 06/16/22 14:09:00 EDT, Height, 84, kg, 05/27/22 18:42:00 EDT, Dry Weight Start Date: 06/19/22 Status: Ordered Ventolin HFA 108 mcg/inh inhalation aerosol with adapter 2 puffs, Inhalation, Every 4 hours, PRN NEEDED, WHEEZE., # 18 each, 0 Refills, Maintenance, 12/24/21 16:46:00 EST, [facility], 165, cm, 10/29/21 13:38:00 EDT, Height Start Date: 12/24/21 Status: Ordered Problem List Condition Confirmation Course Effective Dates Status H ealth Status Informant ASCUS favoring benign 1 Confirmed Active Breast abscess of female Confirmed Active ACL - Anterior cruciate ligament 2 Confirmed 11/2009 Active Degenerative disc disease most severe at L5-S1 level Confirmed Active Hearing Loss 3, 4 Confirmed 2000 Active History of tubal ligation Confirmed Active Hyperlipidemia Confirmed Active Hypertension Confirmed Active LBP - Low back pain Confirmed Active 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 Also, moderate bilateral formainal stenosis on 2008 MRI Diagnosis Diagnosis Type Effective Dates Health Status Clinical Service Informant Screening cholesterol level Discharge Diagnosis 05/06/19 Diabetes mellitus screening Discharge Diagnosis 05/06/19 Syncope Discharge Diagnosis 05/06/19 Social History Social History Type Response Smoking Status 5-9 cigarettes (betw een 1/4 to 1/2 pack)/day in last 30 days; Interested in cessation: No entered on: 06/07/20 Sex Radiology * Alfredo Bibi: PERFORM Event Display: Radiology Results Scanned Authored Date: [id number] * Angelique Russell: PERFORM Event Display: Radiology Results Scanned Authored Date: [id number] Patient Care team information Care Team Personnel Name: Dominik Fenton DO Position: S Resident Member Role: PCP Address: Address: [address] [place] [address]- Care Team Related Persons Name: ROBBIE DAY Address: home [address] [place] [address] Name: FERMIN OSPINA Address: home [address] [address]
--- OUTSIDE RECORDS SUMMARY | 2022-10-15 19:32 | XMS_ITS | Continuity of Care Document ---
Author Name Unknown Organization [facility] Address [address] [place] [address]- Care Team Providers Care Split Leather Department Supervisor Name Role Phone Dominik Fenton DO Primary Care Physician [phone] Encounter [facility] Date(s): 09/27/20 - 10/27/20 [facility] [address] [place] [address]- Encounter Diagnosis Screening cholesterol level(Discharge Diagnosis) - 05/06/19 Diabetes mellitus screening(Discharge Diagnosis) - 05/06/19 Syncope(Discharge Diagnosis) - 05/06/19 Attending Physician: Lauren Wallis Admitting Physician: Lauren Wallis Referring Physician: Lauren Wallis Allergies, Adverse Reactions, Alerts Substance Reaction Severity [...] 10:17:00 EDT, Aerosol, Route to Pharmacy Electronically, [id number], [facility], 165, cm, 06/07/20 10:12:00 EDT, Height Start Date: 06/23/20 Status: Ordered amLODIPine 5 mg oral tablet 1 tablet, By Mouth, Daily, # 90 tablet, 0 Refills, Maintenance, 09/16/20 14:17:00 EDT, [facility], 165, cm, 08/28/20 10:55:00 EDT, Height Start Date: 09/16/20 Status: Ordered atorvastatin 80 mg oral tablet 1 tablet = 80 mg, By Mouth, Daily, # 90 tablet, 1 Refills, Maintenance, 06/24/20 15:16:00 EDT, Tablet, [facility]/pharmacy #1026, 165, cm, 06/07/20 10:12:00 EDT, Height Start Date: 06/24/20 Status: Ordered cloNIDine 0.1 mg oral tablet 0.5, By Mouth, Daily at bedtime, PRN, # 30 tablet, Refills 5, Tot. Refills 5, Maintenance, Sleep, 08/03/19 12:54:00 EDT, Route to Pharmacy Electronically, [facility]/pharmacy #1026, 165, cm, 03/03/19 9:23:00 EST, Height Start Date: 08/03/19 Stop Date: 01/30/20 Status: Ordered hydrochlorothiazide 25 mg oral tablet 1, tablet, By Mouth, Daily, # 90 tablet, Refills 1, Tot. Refills 1, Maintenance, 09/17/20 6:39:00 EDT, Route to Pharmacy Electronically, [facility]/pharmacy #1026, 165, cm, 08/28/20 10:55:00 EDT, Height Start Date: 09/17/20 Status: Ordered PARoxetine 40 mg oral tablet See Instructions, TAKE 1.5 TABLETS BY MOUTH DAILY, # 45 tablet, Refills 5, Tot. Refills 5, 216:39:00 EDT, Instructions Replace Required Details, Route to Pharmacy Electronically, [facility]/pharmacy #1026, 165, cm, 08/28/20 10:55:00 EDT, Height [...] Active 1repeat PAP 02/22 2tear on MRI 10-10 ordered ?by Ortho 3states she had multiple ear infections as a child 4right ear since 2000 or earlier 5mild, acquired on 2008 MRI. Also, moderate bilateral formainal stenosis on 2009 MRI Diagnosis Diagnosis Type Effective Dates Health Status Clinical Service Informant Screening cholesterol level Discharge Diagnosis 05/06/19 Diabetes mellitus screening Discharge Diagnosis 05/06/19 Syncope Discharge Diagnosis 05/06/19 Social History Social History Type Response Smoking Status 5-9 cigarettes (betw een 1/4 to 1/2 pack)/day in last 30 days; Interested in cessation: No entered on: 06/07/20 Sex
--- OUTSIDE RECORDS SUMMARY | 2022-10-15 19:32 | XMS_ITS | Continuity of Care Document ---
Author Name Unknown Organization [facility] ter Address [address] [place] [address]- Care Team Providers Care Board Stacker Name Role Phone Dominik Fenton DO Primary Care Physician [phone] [place] [facility] [place] - 02/12/[address] [address]- Encounter Diagnosis Sciatica(Final) - 02/12/22 Discharge Disposition: A-D/C Home Attending Physician: Prince Howard MD Admitting Physician: Prince Howard MD Referring Physician: Not on Staff, Referring MD Allergies, Adverse Reactions, Alerts Substance Reaction Severity Status Vicodin Active Tylenol with Codeine #3 1 upset stomach A ctive Latex Active 1upset stoamach Immunizations Given and Recorded Vaccine Date Status Refusal Reason SARS-CoV-2 mRNA (cpoobbd-mavw-kyukx) vax 03/20/21 Recorded SARS-CoV-2 (COVID-19) mRNA BNT-162b2 vac 02/27/21 Recorded tetanus/diphtheria/pertussis, acel(Tdap) 07/03/16 Given Medications amLODIPine 5 mg oral tablet 1 tablet, By Mouth, Daily, # 30 tablet, 2 Refills, Maintenance, 12/24/21 12:39:00 EST, [facility], 165, cm, 10/29/21 13:38:00 EDT, Height Start Date: 12/24/21 Status: Ordered atorvastatin 80 mg oral tablet 1 tablet, By Mouth, Daily, # 90 tablet, 1 Refills, 10/30/21 6:19:00 EDT, [facility]/pharmacy #1026, 165, cm, 10/29/21 13:38:00 EDT, Height Start Date: 10/30/21 Status: Ordered cloNIDine 0.1 mg oral tablet 0.5, By Mouth, Daily at bedtime, PRN, # 30 tablet, Refills 5, Tot. Refills 5, Maintenance, Sleep, 08/03/19 12:54:00 EDT, Route to Pharmacy Electronically, [facility]/pharmacy #1026, 165, cm, 03/03/19 9:23:00 EST, Height Start Date: 08/03/19 Stop Date: 01/30/20 Status: Ordered hydrochlorothiazide 25 mg oral tablet 1, tablet, By Mouth, Daily, # 30 tablet, Refills 2, Maintenance, 10/28/21 8:22:00 EDT, Route to Pharmacy Electronically, [facility], 165, cm, 09/27/20 14:32:00 EDT, Height Start Date: 10/28/21 Status: Ordered PARoxetine 40 mg oral tablet See Instructions, Take 1 and 1/2 tablets per day by mouth. (total dose of 60 mg daily), # 45 each, Refills 6, Tot. Refills 6, Maintenance, 11/21/21 8:44:00 EDT, Instructions Replace Required Details,Route to Pharmacy Electronically, [facility]/pharmacy #102... Start Date: 11/21/21 Status: Ordered Percocet 2.5 mg-325 mg oral tablet 2 tablet, By Mouth, Every 6 hours, PRN as needed for pain, # 8 tablet, 0 Refills, Maintenance, 02/12/22 21:04:00 EST, Tablet, [facility]/pharmacy #1026, Partial fill upon patient request if the prescriptionis for a schedule II opioid drug., 2 tablet By Mout... Start Date: 02/12/22 Status: Ordered Ventolin HFA 108 mcg/inh inhalation aerosol with adapter 2 puffs, Inhalation, Every 4 hours, PRN NEEDED, WHEEZE., # 18 each, 0 Refills, Maintenance, 12/24/21 16:46:00 EST, [facility], 165, cm, 10/29/21 13:38:00 EDT, Height Start [...] Active Tobacco use Confirmed Active 1repeat PAP 15 2tear on MRI 10-10 ordered ?by Ortho 3states she had multiple ear infections as a child 4right ear since 2000 or earlier 5mild, acquired on 2008 MRI. Also, moderate bilateral formainal stenosis on 2009 MRI Results Radiology Reports * Exam Date Time Procedure Performing Provider Status 02/12/22 8:01 PM XR Hip w/Pelvis 2-3 View Left Kallie Sinha; Auth (Verified) Notes: (XR Hip w/Pelvis 2-3 View Left) Reason For Exam: Other: RESULT: XR Hip w/Pelvis 2-3 View Left XR Hip w/Pelvis 2-3 View Left Hx of Present Illness: pt report L hip and low back pain that radiates to groin. Denies any genitourinary concerns. Reports pain is exacerbated by movement. No injury to area COMPARISON: CT abdomen pelvis 06/23/2020. FINDINGS: There is no fracture or dislocation. Mild bilateral degenerative changes of the hip joints. Normal sacroiliac joints. Normal soft tissues. IMPRESSION: No acute osseous process. Mild bilateral degenerative hip joint changes. I have personally reviewed the images and I agree with this report. WSN: [id number] Ordering Physician: Jeremie Cnuha Dictated By: Trisha Zamora MD Dictated Date/Time: 02/12/22 8:10 pm Reviewed By: Keanu Escobar MD Signed By: Keanu Escobar MD Signed Date/Time: 02/12/22 8:15 pm Transcribed By: KAREN Transcribed Date/Time: 02/12/22 8:09 pm Vital Signs Most recent to oldest [Reference Range]: 1 2 3 Oxygen Saturation [94-100 %] 95 % (02/12/22 9:28 PM) 94 % (02/12/22 8:28 PM) 96 % (02/12/22 4:10 PM) Pulse Rate [55-90 bpm] 73 bpm (02/12/22 9:28 PM) 75 bpm (1/5/23 8:28 PM) 87 bpm (02/12/22 4:10 PM) Blood Pressure [90-138/55-84 mm Hg] 144/77mm Hg *H* (02/12/22 9:28 PM) 147/82mm Hg *H* (02/12/22 8:28 PM) 152/82mm Hg *H* (02/12/22 4:10 PM) Respiratory Rate [16-30 br/min] 16 br/min (02/12/22 9:28 PM) 20 br/min (02/12/22 4:10 PM) Temperature [96.8-100.4 DegF] 98.4 DegF (02/12/22 9:28 PM) 97.6 DegF (02/12/22 8:28 PM) 97.7 DegF (02/12/22 4:10 PM) Mode of Delivery (Oxygen) Room air (02/12/22 9:28 PM) Room air (02/12/22 4:10 PM) Room air (02/12/22 4:05 PM) Blood pressure sites Arm, left (02/12/22 9:28 PM) Arm, right (02/12/22 4:10 PM) Temperature Route Oral (02/12/22 9:28 PM) Oral (02/12/22 8:28 PM) Oral (02/12/22 4:10 PM) Social History Social History Type Response Smoking Status 5-9 cigarettes (betw een 1/4 to 1/2 pack)/day in last 30 days; Interested in cessation: No entered on: 06/07/20 Sex Note * Jeremie Membreno: PERFORM Event Display: Patient Education Leaflets Authored Date: [id number] Physical Therapy Referral ?? 250 ?? This page is FOR PRESCRIBERS Only, ? DO NOT GIVE TO THE PATIENT? Physical Therapy Referral Program for Management of Pain In an effort to reduce narcotic use, some of our ED patients will benefit from a direct referral torehab care.?? [facility] will see INSURED patients and has a system in place to avoid sending follow up paperwork to the ED prescribers.? Note: Non-[facility] physical therapy services will probably NOT be able to handle ED generated PT referrals. ?? Patients should still follow up with their PCP as soon as possible regarding their ongoing care. Inform patients that [facility] will discuss insurance when they call.?? Some insurance plans limit the amount of PT a patient can receive each year. ?? Complete the FIRST PAGE of the patient???s referral sheet. [place] or write in diagnosis Modify the timing for treatment, if needed List any major precautions (i.e.?? Non-weight bearing limb), if needed Sign, date and print your name at the bottom ? Physical Therapy Referral Form Patient Instructions: You are being referred to physical therapy.?? This form is your referral and MUST be brought to your appointment. You need to call to set up your appointment. ?? This form can be used at any [facility] location.?? A list of locations is attached.?? 1)?? DIAGNOSIS/ICD-10 ([place] one) Cervicalgia: M54.2 ? Strain of muscle, fascia and tendon at neck level: S16.1XXD? Radiculopathy, cervical region: M54.12? Mid back pain: M54.9 ? Low back pain:?? M54.5 Strain of muscle, fascia and tendon of lower back: S39.012D Radiculopathy, lumbosacral region: M54.17 Other:? 2)? [? ]? Evaluate and Treat 2 Times/Week for 4 weeks as needed [? ]?Other: 3)? [? ]? No Precautions [? ]?Precautions: ?? I hereby certify these services as medically necessary for the patient???s plan of care. Physician???s Signature Date Physician Name (printed)? Locations You can call any location below.?? Tell them you were seen in a [facility] Emergency Department and have a referral form.?? Remember to bring your referral form with you to the appointment. JUAN Martell [address]? JUAN Thrasher [address] [place] [address], [facility] [address]? [address] Phone: [phone]? JUAN Khanna [address]? JUAN Cruz [address]? [address] ? [place] [address]? [place] [address]? [address] ? [place] [address]? [place] [address]? [address]? [facility] ? [address] ? XR Pelvis and Hip - left Views * [facility] , CIS S: TRANSCRIBE Keanu Escobar MD: VERIFY Trisha Zamora MD: SIGN Event Display: Result: Authored Date: [id number] XR Hip w/Pelvis 2-3 View Left Hx of Present Illness: pt report L hip and low back pain that radiates to groin. Denies any genitourinary concerns. Reports pain is exacerbated by movement. No injury to area COMPARISON: CT abdomen pelvis 06/23/2020. FINDINGS: There is no fracture or dislocation. Mild bilateral degenerative changes of the hip joints. Normal sacroiliac joints. Normal soft tissues. IMPRESSION: No acute osseous process. Mild bilateral degenerative hip joint changes. I have personally reviewed the images and I agree with this report. WSN: [id number] Ordering Physician: Jeremie Cunha Dictated By: Trisha Zamora MD Dictated Date/Time: 02/12/22 8:10 pm Reviewed By: Keanu Escobar MD Signed By: Keanu Escobar MD Signed Date/Time: 02/12/22 8:15 pm Transcribed By: KAREN Transcribed Date/Time: 02/12/22 8:09 pm Patient Care team information Care Team Personnel Name: Dominik Fenton DO Position: [facility] Resident Member Role: PCP Address: Address: [address] [place] [address]- Name: Prince Howard MD Position: [facility] ED Medicine MD Member Role: Admitting Physician Address: Address: [address] [place] [address] Name: Jeremie Membreno Position: [facility] Associate Professional Member Role: ED Physician Voltage Inspector Address: Address: [address] [place] [address] Name: Madison Troy RN Position: [facility] ED RN W/OE and Tasks Member Role: Patient Care Provider Name: Melissa Rodríguez Position: [facility] ED TA [facility] Member Role: Air And Water Filler Care Team Related Persons Name: ROBBIE DAY Address: home [address] [place] [address] Name: FERMIN OSPINA Address: home [address] [address]
--- OUTSIDE RECORDS SUMMARY | 2022-10-15 19:32 | XMS_ITS | Continuity of Care Document ---
Author Name Unknown Organization [facility] Address [address] [place] [address]- Care Team Providers Care Hydraulic Billet Maker Name Role Phone Dominik Fenton DO Primary Care Physician [phone] [place] [facility] [place] 05/08/20 [facility] [address] [place] [address]- Encounter Diagnosis Screening cholesterol level(Discharge Diagnosis) - [...] 03/31/20 15:06:00 EST, Route to Pharmacy Electronically, [facility]/pharmacy #1026, 165, cm, 01/18/20 15:16:00 EST, Height Start Date: 03/31/20 Stop Date: 06/29/20 Status: Ordered atorvastatin 80 mg oral tablet 1 tablet = 80 mg, By Mouth, Daily, # 90 tablet, 2 Refills, Maintenance, 09/08/19 18:08:00 EDT, [facility]t, [facility], 165, cm, 03/03/19 9:23:00 EST, Height Start Date: 09/08/19 Status: Ordered cloNIDine 0.1 mg oral tablet 0.5, By Mouth, Daily at bedtime, PRN, # 30 tablet, Refills 5, Tot. Refills 5, Maintenance, Sleep, 08/03/19 12:54:00 EDT, [facility], cm, 03/03/19 9:23:00 EST, Height Start Date: 08/03/19 Stop Date: 01/30/20 Status: Ordered hydrochlorothiazide 25 mg oral tablet 25 mg, 1, tablet, By Mouth, Daily, # 90 tablet, Refills 0, Tot. Refills 0, Maintenance, 04/29/20 14:15:00 EDT, [facility] 165, cm, 01/18/20 15:16:00 EST, Height Start Date: 04/29/20 Stop Date: 07/28/20 Status: Ordered nicotine 14 mg/24 hr transdermal film, extended release 1 patch, Topically, Daily, # 30 patch, 1 Refills, Maintenance, 04/08/20 15:55:00 EST, Patch, [facility]/pharmacy #1026, Partial fill upon patient request if the prescription is for a schedule II opioid drug., 1 patch Topically Daily, 165, cm, 04/08/20 14:53:... Start Date: 04/08/20 Status: Ordered Nicotine 2 mg gum 1 each = 2 mg, Chew, Every 2 hours, PRN as needed for smoking cessation, # 160 each, 6 Refills, Maintenance, 04/08/20 15:55:00 EST, Gum, [facility]/pharmacy #1026, Partial fill upon patient request if the prescription is for a schedule II opioid drug., 165,... Start Date: 04/08/20 Status: Ordered PARoxetine 40 mg oral tablet 1.5, tablet, By Mouth, Daily, # 45 tablet, Refills 0, Tot. Refills 0, Maintenance, 04/24/20 8:43:00EDT, Route to Pharmacy Electronically, [facility], 165, cm, 04/08/20 14:53:00 EST, Height Start Date: 04/24/20 Status: Ordered Problem List Condition Effective Dates [...] Pulmonary nodules, f/u chest CT 03/2021(Confirmed) Active Spinal stenosis of lumbar region(Confirmed) 5 [...]
--- OUTSIDE RECORDS SUMMARY | 2022-10-15 19:32 | XMS_ITS | Continuity of Care Document ---
Author Name Unknown Organization [facility] Address [address] [place] [address]- Care Team Providers Care Jewelry Inspector Name Role Phone Dominik Fenton DO Primary Care Physician [place] [facility] [place] 10[place]21 [facility] [address] [place], [place] [address] Attending Physician: Not on Staff, Attending MD Allergies, Adverse Reactions, Alerts Substance Reaction Severity Status Vicodin Active Tylenol with Codeine #3 1 upset stomach A ctive Latex Active 1upset stoamach Immunizations Given and Recorded Vaccine Date Status Refusal Reason SARS-CoV-2 mRNA (ooelmlp-xwyy-vsycc) vax 03/20/21 Recorded SARS-CoV-2 (COVID-19) mRNA BNT-162b2 vac 02/27/21 Recorded tetanus/diphtheria/pertussis, acel(Tdap) 07/03/16 Given Medications albuterol CFC free 90 mcg/inh inhalation aerosol 2, puffs, Inhalation, Every 4 hours, PRN, # 6.7 Gm, Refills 0, Tot. Refills 0, Maintenance, 06/23/20 10:17:00 EDT, Aerosol, Route to Pharmacy Electronically, [id number], [facility], 165, cm, 06/07/20 10:12:00 EDT, Height Start Date: 06/23/20 Status: Ordered amLODIPine 5 mg oral tablet 1 tablet, By Mouth, Daily, # 30 tablet, 2 Refills, 09/26/21 14:58:00 EDT, [facility], 165, cm, 09/27/20 14:32:00 EDT, Height Start Date: 09/26/21 Status: Ordered atorvastatin 80 mg oral tablet 1 tablet, By Mouth, Daily, # 90 tablet, 1 Refills, 06/27/21 14:09:00 EDT, [facility]/pharmacy #1026, 165, cm, 09/27/20 14:32:00 EDT, Height [...] 12/17/20 9:18:00 EST, [facility], cm, 09/27/20 14:32:00 EDT, Height Start Date: 12/17/20 Status: Ordered PARoxetine 40 mg oral tablet 1.5, tablet, By Mouth, Daily, # 45 tablet, Refills 3, Route to Pharmacy Electronically, [facility], 165, cm, 09/27/20 14:32:00 EDT, Height Start [...]
--- OUTSIDE RECORDS SUMMARY | 2022-10-15 19:32 | XMS_ITS | Continuity of Care Document ---
Author Name Unknown Organization [facility] Address [address] [place] [address]- Care Team Providers Care Fire Extinguisher Sprinkler Inspector Name Role Phone Merle Davalos DO Primary Care Physician [place] [facility] [place]18 [place] 02/26/19 [facility] [address] [place] [address]- [facility] Attending Physician: Kevan Garcia MD Admitting Physician: Kevan Garcia MD Allergies, Adverse Reactions, Alerts Substance Reaction [...] 12/16/18 14:39:19 EST, Route to Pharmacy Electronically, [id number], [facility] Start Date: 12/16/18 Stop Date: 09/12/19 Status: Ordered atorvastatin 80 mg oral tablet 1 tablet = 80 mg, By Mouth, Daily, # 90 tablet, 2 Refills, Maintenance, 12/16/18 14:39:27 EST, Tablet Start Date: 12/16/18 Status: Ordered cloNIDine 0.1 mg oral tablet 0.5, By Mouth, Daily at bedtime, PRN, # 15 tablet, Refills 5, Tot. Refills 5, Maintenance, Insomnia, 02/05/18 22:57:38 EST, Route to Pharmacy Electronically, [id number], [facility] #1026 Start Date: 02/05/18 Stop Date: 08/04/18 Status: Ordered cloNIDine 0.1 mg oral tablet 0.5, By Mouth, Daily at bedtime, PRN, # 30 tablet, Refills 5, Tot. Refills 5, Maintenance, Sleep, 07/30/18 20:00:00 EDT, Route to Pharmacy Electronically, [id number], [facility] #1026 Start Date: 07/30/18 Stop Date: 01/26/19 Status: Ordered hydrochlorothiazide 25 mg oral tablet 25 mg, 1, tablet, By Mouth, Daily, # 90 tablet, Refills 2, Tot. Refills 2, Maintenance, 12/16/18 14:39:27 EST, Route to Pharmacy Electronically, [id number], [facility] #1026 Start Date: 12/16/18 Stop Date: 09/12/19 Status: Ordered ibuprofen 800 mg oral tablet 800 mg, 1, tablet, By Mouth, 3 times a day, PRN, # 30 tablet, Refills 2, Tot. Refills 2, Maintenance, Pain, 12/08/16 17:13:13, Route to Pharmacy Electronically, [id number], [facility] #1026 Start Date: 12/08/16 Status: Ordered nicotine 10 mg inhalation device [...] 02/05/18 22:57:40 EST, Route to Pharmacy Electronically, [id number], [facility]26 Start Date: 02/05/18 Status: Ordered Paxil 40 mg oral tablet 60 mg, 1.5, tablet, By Mouth, Daily at bedtime, PRN, # 30 tablet, Refills 5, Tot. Refills 5, Maintenance, Sleep, 12/16/18 14:39:20 EST, Route to Pharmacy Electronically, [id number], [facility] #1026 Start Date: 12/16/18 Stop Date: 06/14/19 Status: Ordered traZODone 100 mg oral tablet 200 mg, 2, tablet, By Mouth, Daily at bedtime, # 60 tablet, Refills 5, Tot. Refills 5, Maintenance,02/05/18 22:57:41 EST, Route to Pharmacy Electronically, [id number], [facility] #1026 Start Date: 02/05/18 Status: Ordered traZODone 100 mg oral tablet 200 mg, 2, tablet, By Mouth, Daily at bedtime, PRN, # 30 tablet, Refills 5, Tot. Refills 5, Maintenance, Sleep, 07/30/18 20:00:00 EDT, Route to Pharmacy Electronically, [id number], [facility]1026 Start Date: 07/30/18 Stop Date: 01/26/19 [...] Response Smoking Status Current every day sm okbrianne; Other: 0.5 to one pack of cigarettes per day; entered on: 10/04/14 Sex
--- OUTSIDE RECORDS SUMMARY | 2022-10-15 19:32 | XMS_ITS | Continuity of Care Document ---
Author Name Unknown Organization [facility] Address [address] [place] [address]- Care Team Providers Care School Childcare Attendant Name Role Phone Dominik Fenton DO Primary Care Physician [phone] [place] [facility] [place] 12/16/20 - 01/15/21 [facility] [address] [place], [place] [address] Allergies, Adverse Reactions, Alerts Substance Reaction [...] 10:17:00 EDT, Aerosol, Route to Pharmacy Electronically, [id number], [facility]/pharmacy #1026, 165, cm, 06/07/20 10:12:00 EDT, Height Start Date: 06/23/20 Status: Ordered amLODIPine 5 mg oral tablet 1 tablet, By Mouth, Daily, # 90 tablet, 1 Refills, Maintenance, 12/17/20 9:18:00 EST, [facility], 165, cm, 09/27/20 14:32:00 EDT, Height Start Date: 12/17/20 Status: Ordered atorvastatin 80 mg oral tablet 1 tablet, By Mouth, Daily, # 90 tablet, 1 Refills, [facility], 165, cm, 09/27/20 14:32:00 EDT,Height Start Date: 12/15/20 Status: Ordered cloNIDine 0.1 mg oral tablet 0.5, By Mouth, Daily at bedtime, PRN, # 30 tablet, Refills 5, Tot. Refills 5, Maintenance, Sleep, 08/03/19 12:54:00 EDT, Route to Pharmacy Electronically, [facility]/pharmacy #1026, 165, cm, 03/03/19 9:23:00 EST, Height Start Date: 08/03/19 Stop Date: 01/30/20 Status: Ordered hydrochlorothiazide 25 mg oral tablet 1, tablet, By Mouth, Daily, # 90 tablet, Refills 1, Tot. Refills 1, Maintenance, 12/17/20 9:18:00 EST, Route to Pharmacy Electronically, [facility]/pharmacy #1026, 165, cm, 09/27/20 14:32:00 EDT, Height Start Date: 12/17/20 Status: Ordered PARoxetine 40 mg oral tablet See Instructions, TAKE 1.5 TABLETS BY MOUTH DAILY, # 45 tablet, Refills 5, Tot. Refills 5, 216:39:00 EDT, Instructions Replace Required Details, Route to Pharmacy Electronically, [facility]/pharmacy #1026, 165, cm, 08/28/20 10:55:00 EDT, Height [...]
--- OUTSIDE RECORDS SUMMARY | 2022-10-15 19:32 | XMS_ITS | Continuity of Care Document ---
Author Name Unknown Organization [facility] Address [address] [place] [address]- Care Team Providers Care Software Developer Name Role Phone Dominik Fenton DO Primary Care Physician Encounter [facility] Date(s): 05/29/22 - 06/28/22 [facility] [address] [place], [place] [address] Allergies, Adverse Reactions, Alerts Substance Reaction Severity Status Vicodin Active Tylenol with Codeine #3 1 upset stomach A ctive Latex Active 1upset stoamach Immunizations Given and Recorded Vaccine Date Status Refusal Reason SARS-CoV-2 mRNA (rdvfaur-qlbg-zvaod) vax 03/20/21 Recorded SARS-CoV-2 (COVID-19) mRNA BNT-162b2 [...] 12:54:00 EDT, Route to Pharmacy Electronically, [facility]/pharmacy #1026, 165, cm, 03/03/19 9:23:00 EST, Height Start Date: 08/03/19 Stop Date: 01/30/20 Status: Ordered hydrochlorothiazide 25 mg oral tablet 1, tablet, By Mouth, Daily, # 30 tablet, Refills 2, Maintenance, 04/23/22 18:40:00 EDT, Route to Pharmacy Electronically, [facility] 594[facility], 165, cm, 04/13/22 13:54:00 EST, Height, 84, kg, 01/23/22 20:28:00 EST, Dry Weight Start Date: 04/23/22 Status: Ordered naproxen 500 mg (as sodium) oral tablet, extended release 1 to 2 tablet, By Mouth, Daily, PRN as needed for arthritis, # 20 each, 0 Refills, Maintenance, 05/27/22 19:56:00 EDT, ER Tablet, [facility]/pharmacy #1026, Partial fill upon patient request if the prescription is for a schedule II opioid drug., 165, cm, ... Start Date: 05/27/22 Status: Ordered PARoxetine 40 mg oral tablet 1.5, tablet, By Mouth, Daily, (TOTAL DOSE OF 60 MG DAILY), # 45 tablet, Refills 6, Maintenance, 06/19/22 11:47:00 EDT, Route to Pharmacy Electronically, [facility], 165, cm, 06/16/22 14:09:00 EDT, Height, 84, kg, 05/27/22 18:42:00 EDT, Dry Weight Start Date: 06/19/22 Status: Ordered Ventolin HFA 108 mcg/inh inhalation aerosol with adapter 2 puffs, Inhalation, Every 4 hours, PRN NEEDED, WHEEZE., # 18 each, 0 Refills, Maintenance, 12/24/21 16:46:00 EST, [facility], 165, cm, 10/29/21 13:38:00 EDT, Height Start [...] in cessation: No entered on: 06/07/20 Sex Patient Care team information Care Team Personnel Name: Dominik Fenton DO Position: S Resident Member Role: PCP Address: Address: [address] [place] [address]- Care Team Related Persons Name: ROBBIE DAY Address: home [address] [place] [address] Name: FERMIN OSPINA Address: home [address] [address]
--- OUTSIDE RECORDS SUMMARY | 2022-10-15 19:32 | XMS_ITS | Continuity of Care Document ---
Author Name Unknown Organization [facility] Address [address] [place] [address]- Care Team Providers Care Cyber Special Agent Name Role Phone Dominik Fenton DO Primary Care Physician [facility] Date[facility]): 10/29/21 - 11/28/21 [facility] [address] [place] [address]- Encounter Diagnosis Screening cholesterol level(Discharge Diagnosis) - [...] Vaccine Date Status Refusal Reason SARS-CoV-2 mRNA (eojejrb-sgdk-unfpw) vax 03/20/21 Recorded SARS-CoV-2 (COVID-19) mRNA BNT-162b2 vac 02/27/21 Recorded tetanus/diphtheria/pertussis, acel(Tdap) 07/03/16 Given Medications albuterol CFC free 90 mcg/inh inhalation aerosol 2, puffs, Inhalation, Every 4 hours, PRN, # 6.7 Gm, Refills 0, Tot. Refills 0, Maintenance, 10/30/21 6:20:00 EDT, Aerosol, Route to Pharmacy Electronically, [id number], [id number], 165, cm, 10/29/21 13:38:00 EDT, Height Start Date: 10/30/21 Status: Ordered amLODIPine 5 mg oral tablet 1 tablet, By Mouth, Daily, # 30 tablet, 2 Refills, 09/26/21 14:58:00 EDT, [facility]/pharmacy #[id number], 165, cm, 09/27/20 14:32:00 EDT, Height Start Date: 09/26/21 Status: Ordered atorvastatin 80 mg oral tablet 1 tablet, By Mouth, Daily, # 90 tablet, 1 Refills, 10/30/21 6:19:00 EDT, [facility]/pharmacy #[id number], 165, cm, 10/29/21 13:38:00 EDT, Height Start Date: 10/30/21 Status: Ordered cloNIDine 0.1 mg oral tablet 0.5, By Mouth, Daily at bedtime, PRN, # 30 tablet, Refills 5, Tot. Refills 5, Maintenance, Sleep, 08/03/19 12:54:00 EDT, Route to Pharmacy Electronically, [facility]/pharmacy #[id number], 165, cm, 03/03/19 9:23:00 EST, Height Start Date: 08/03/19 Stop Date: 01/30/20 Status: Ordered hydrochlorothiazide 25 mg oral tablet 1, tablet, By Mouth, Daily, # 30 tablet, Refills 2, Maintenance, 10/28/21 8:22:00 EDT, Route to Pharmacy Electronically, [facility] STORE [id number], 165, cm, 09/27/20 14:32:00 EDT, Height Start Date: 10/28/21 Status: Ordered PARoxetine 40 mg oral tablet See Instructions, Take 1 and 1/2 tablets per day by mouth. (total dose of 60 mg daily), # 45 each, Refills 6, Tot. Refills 6, Maintenance, 11/21/21 8:44:00 EDT, Instructions Replace Required Details,Route to Pharmacy Electronically, [facility]/pharmacy #[id number]... Start Date: 11/21/21 Status: Ordered Problem List Condition Confirmation Course [...] on: 06/07/20 Sex Patient Care team information Personnel Name: Dominik Fenton DO Address: Address: [address] [place] [id number]
--- OUTSIDE RECORDS SUMMARY | 2022-10-15 19:32 | XMS_ITS | Continuity of Care Document ---
Author Name Unknown Organization [facility] Address [address] [place] [address]- Care Team Providers Care Associate Broker Name Role Phone Dominik Fenton DO Primary Care Physician [facility] Date[facility]s): 07/03/20 - 08/02/20 [facility] [address] [place] [address]- Allergies, Adverse Reactions, Alerts Substance Reaction Severity [...] 10:17:00 EDT, Aerosol, Route to Pharmacy Electronically, [id number], [facility]/pharmacy #[id number], 165, cm, 06/07/20 10:12:00 EDT, Height Start Date: 06/23/20 Status: Ordered amLODIPine 5 mg oral tablet 5 mg, 1, tablet, By Mouth, Daily, # 90 tablet, Refills 0, Tot. Refills 0, Maintenance, 03/31/20 15:06:00 EST, Route to Pharmacy Electronically, [facility]/pharmacy #[id number], 165, cm, 01/18/20 15:16:00 EST, Height Start Date: 03/31/20 Stop Date: 06/29/20 Status: Ordered atorvastatin 80 mg oral tablet 1 tablet = 80 mg, By Mouth, Daily, # 90 tablet, 1 Refills, Maintenance, 06/24/20 15:16:00 EDT, Tablet, [facility]/pharmacy #1026, 165, cm, 06/07/20 10:12:00 EDT, Height Start Date: 06/24/20 Status: Ordered cloNIDine 0.1 mg oral tablet 0.5, By Mouth, Daily at bedtime, PRN, # 30 tablet, Refills 5, Tot. Refills 5, Maintenance, Sleep, 08/03/19 12:54:00 EDT, Route to Pharmacy Electronically, [facility]/pharmacy #1026, 165, cm, 03/03/19 9:23:00 EST, Height Start Date: 08/03/19 Stop Date: 01/30/20 Status: Ordered hydrochlorothiazide 25 mg oral tablet 1, tablet, By Mouth, Daily, # 90 tablet, Refills 0, Tot. Refills 0, Maintenance, 06/20/20 9:08:00 EDT, Route to Pharmacy Electronically, [facility] STORE [id number], 165, cm, 06/07/20 10:12:00 EDT, Height Start Date: 06/20/20 Status: Ordered PARoxetine 40 mg oral tablet See Instructions, TAKE 1.5 TABLETS BY MOUTH DAILY, # 45 tablet, Refills 5, Maintenance, Instructions Replace Required Details, Route to Pharmacy Electronically, [facility] STORE 70630, 165, cm, 04/08/20 14:53:00 EST, Height Start [...] lumbar region(Confirmed) 5 2005 Active 1repeat PAP /15 2tear on MRI 10-10 ordered ?by Ortho 3states she had multiple ear infections as a child 4right ear since 2000 or earlier 5mild, acquired on 2008 MRI. 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
--- OUTSIDE RECORDS SUMMARY | 2022-10-15 19:32 | XMS_ITS | Continuity of Care Document ---
Author Name Unknown Organization [facility] Address [address] [place] [address]- Care Team Providers Care Slat Basket Maker Name Role Phone Dominik Fenton DO Primary Care Physician Encounter [facility] [place] Date(s): 01/28/22 - 03/13/22 [facility] [address] [place] [address]- Attending Physician: Kevan Garcia MD Admitting Physician: Kevan Garcia MD Allergies, Adverse Reactions, Alerts Substance Reaction Severity Status Vicodin Active Tylenol with Codeine #3 1 upset stomach A ctive Latex Active 1upset stoamach Immunizations Given and Recorded Vaccine Date Status Refusal Reason SARS-CoV-2 mRNA (uwvmlcl-prfk-qumgw) vax 03/20/21 Recorded SARS-CoV-2 (COVID-19) mRNA BNT-162b2 vac 02/27/21 Recorded tetanus/diphtheria/pertussis, acel(Tdap) 07/03/16 Given Medications amLODIPine 5 mg oral tablet 1 tablet, By Mouth, Daily, # 30 tablet, 2 Refills, Maintenance, 12/24/21 12:39:00 EST, [facility] STORE 10932, 165, cm, 10/29/21 13:38:00 EDT, Height Start Date: 12/24/21 Status: Ordered atorvastatin 80 mg oral tablet 1 tablet, By Mouth, Daily, # 90 tablet, 1 Refills, 10/30/21 6:19:00 EDT, [facility]/pharmacy #1026, 165, cm, 10/29/21 13:38:00 EDT, Height Start Date: 10/30/21 Status: Ordered cloNIDine 0.1 mg oral tablet 0.5, By Mouth, Daily at bedtime, PRN, # 30 tablet, Refills 5, Tot. Refills 5, Maintenance, Sleep, 08/03/19 12:54:00 EDT, Route to Pharmacy Electronically, [facility]/pharmacy #1026, 165, cm, 03/03/19 9:23:00 EST, Height Start Date: 08/03/19 Stop Date: 01/30/20 Status: Ordered hydrochlorothiazide 25 mg oral tablet 1, tablet, By Mouth, Daily, # 30 tablet, Refills 1, Tot. Refills 1, Maintenance, 02/24/22 16:42:00 EST, Route to Pharmacy Electronically, [facility]/pharmacy #1026, 165, cm, 01/23/22 20:28:00 EST, Height, 84, kg, 01/23/22 20:28:00 EST, Dry Weight Start Date: 02/24/22 Status: Ordered PARoxetine 40 mg oral tablet See Instructions, Take 1 and 1/2 tablets per day by mouth. (total dose of 60 mg daily), # 45 each, Refills 6, Tot. Refills 6, Maintenance, 11/21/21 8:44:00 EDT, Instructions Replace Required Details,Route to Pharmacy Electronically, [facility]/pharmacy #102... Start Date: 11/21/21 Status: Ordered Percocet 2.5 mg-325 mg oral tablet 2 tablet, By Mouth, Every 6 hours, PRN as needed for pain, # 8 tablet, 0 Refills, Maintenance, 02/12/22 21:04:00 EST, Tablet, [facility]/pharmacy #1026, Partial fill upon patient request if the prescriptionis for a schedule II opioid drug., 2 tablet By Mout... Start Date: 02/12/22 Status: Ordered Ventolin HFA 108 mcg/inh inhalation aerosol with adapter 2 puffs, Inhalation, Every 4 hours, PRN NEEDED, WHEEZE., # 18 each, 0 Refills, Maintenance, 12/24/21 16:46:00 EST, [facility] STORE [id number], 165, cm, 10/29/21 13:38:00 EDT, Height Start [...] Role: PCP Address: Address: [address] [place] [address]- Care Team Related Persons Name: ROBBIE DAY Address: home [address] [place] [address] Name: FERMIN OSPINA Address: home [address] [address]
--- OUTSIDE RECORDS SUMMARY | 2022-10-15 19:32 | XMS_ITS | Continuity of Care Document ---
Author Name Unknown Organization [facility] Address [address] [place] [address]- Care Team Providers Care Missile Control Pilot Name Role Phone Dominik Fenton DO Primary Care Physician [facility] Date[facility]s): 02/10/22 - 03/12/22 [facility] [address] [place], [place] [address] Allergies, Adverse Reactions, Alerts Substance Reaction Severity Status Vicodin Active Tylenol with Codeine #3 1 upset stomach A ctive Latex Active 1upset stoamach Immunizations Given and Recorded Vaccine Date Status Refusal Reason SARS-CoV-2 mRNA (uweilno-olus-wvtfy) vax 03/20/21 Recorded SARS-CoV-2 (COVID-19) mRNA BNT-162b2 vac 02/27/21 Recorded tetanus/diphtheria/pertussis, acel(Tdap) 07/03/16 Given Medications amLODIPine 5 mg oral tablet 1 tablet, By Mouth, Daily, # 30 tablet, 2 Refills, Maintenance, 12/24/21 12:39:00 EST, [facility], 165, cm, 10/29/21 13:38:00 EDT, Height Start Date: 12/24/21 Status: Ordered atorvastatin 80 mg oral tablet 1 tablet, By Mouth, Daily, # 90 tablet, 1 Refills, 10/30/21 6:19:00 EDT, [facility]/pharmacy #1026, 165, cm, 10/29/21 13:38:00 EDT, Height Start Date: 10/30/21 Status: Ordered cloNIDine 0.1 mg oral tablet 0.5, By Mouth, Daily at bedtime, PRN, # 30 tablet, Refills 5, Tot. Refills 5, Maintenance, Sleep, 08/03/19 12:54:00 EDT, Route to Pharmacy Electronically, [facility]/pharmacy #1026, 165, cm, 03/03/19 9:23:00 EST, Height Start Date: 08/03/19 Stop Date: 01/30/20 Status: Ordered hydrochlorothiazide 25 mg oral tablet 1, tablet, By Mouth, Daily, # 30 tablet, Refills 1, Tot. Refills 1, Maintenance, 02/24/22 16:42:00 EST, Route to Pharmacy Electronically, [facility]/pharmacy #1026, 165, cm, 01/23/22 20:28:00 EST, Height, 84, kg, 01/23/22 20:28:00 EST, Dry Weight Start Date: 02/24/22 Status: Ordered PARoxetine 40 mg oral tablet See Instructions, Take 1 and 1/2 tablets per day by mouth. (total dose of 60 mg daily), # 45 each, Refills 6, Tot. Refills 6, Maintenance, 11/21/21 8:44:00 EDT, Instructions Replace Required Details,[facility] Start Date: 11/21/21 Status: Ordered Percocet 2.5 mg-325 mg oral tablet 2 tablet, By Mouth, Every 6 hours, PRN as needed for pain, # 8 tablet, 0 Refills, Maintenance, 02/12/22 21:04:00 EST, Tablet, [facility]/pharmacy #1026, Partial fill upon patient request if the prescriptionis for a schedule II opioid drug., 2 tablet By Mout... Start Date: 02/12/22 Status: Ordered Ventolin HFA 108 mcg/inh inhalation aerosol with adapter 2 puffs, Inhalation, Every 4 hours, PRN NEEDED, WHEEZE., # 18 each, 0 Refills, Maintenance, 12/24/21 16:46:00 EST, [facility] STORE [id number], 165, cm, 10/29/21 13:38:00 EDT, Height Start [...] Member Role: PCP Address: Address: [address] [place] [address]- Care Team Related Persons Name: ROBBIE DAY Address: home [address] [place] [address] Name: FERMIN OSPINA Address: [address] [address]
--- OUTSIDE RECORDS SUMMARY | 2022-10-15 19:32 | XMS_ITS | Continuity of Care Document ---
Author Name Unknown Organization [facility] ter Address [address] [place] [address]- Care Team Providers Care Consumer Affairs Manager Name Role Phone Dominik Fenton DO Primary Care Physician [place] [facility] [place]/26[place] - 06/08/[address] [address] Attending Physician: Fina ENG, Glenn Azar Admitting Physician: Glenn Harden MD Referring Physician: Dominik Fenton DO Allergies, Adverse Reactions, Alerts Substance Reaction Severity Status Vicodin Active Tylenol with Codeine #3 1 upset stomach A ctive Latex Active 1upset stoamach Immunizations Given and Recorded Vaccine Date Status Refusal Reason SARS-CoV-2 mRNA (pvdkchj-qwoz-yhdyd) vax 03/20/21 Recorded SARS-CoV-2 (COVID-19) mRNA BNT-162b2 vac 02/27/21 Recorded tetanus/diphtheria/pertussis, acel(Tdap) 07/03/16 Given Medications albuterol CFC free 90 mcg/inh inhalation aerosol 2, puffs, Inhalation, Every 4 hours, PRN, # 6.7 Gm, Refills 0, Tot. Refills 0, Maintenance, 06/23/20 10:17:00 EDT, Aerosol, Route to Pharmacy Electronically, [id number], [id number], 165, cm, 06/07/20 10:12:00 EDT, Height Start Date: 06/23/20 Status: Ordered amLODIPine 5 mg oral tablet 1 tablet, By Mouth, Daily, # 90 tablet, 1 Refills, Maintenance, 12/17/20 9:18:00 EST, [facility], 165, cm, 09/27/20 14:32:00 EDT, Height Start Date: 12/17/20 Status: Ordered atorvastatin 80 mg oral tablet 1 tablet, By Mouth, Daily, # 90 tablet, 1 Refills, [facility] STORE 15564, 165, cm, 09/27/20 14:32:00 EDT,Height Start Date: 12/15/20 Status: Ordered cloNIDine 0.1 mg oral tablet 0.5, By Mouth, Daily at bedtime, PRN, # 30 tablet, Refills 5, Tot. Refills 5, Maintenance, Sleep, 08/03/19 12:54:00 EDT, [facility], 165, cm, 03/03/19 9:23:00 EST, Height Start Date: 08/03/19 Stop Date: 01/30/20 Status: Ordered hydrochlorothiazide 25 mg oral tablet 1, tablet, By Mouth, Daily, # 90 tablet, Refills 1, Tot. Refills 1, Maintenance, 12/17/20 9:18:00 EST, [facility] Pharm[facility]ically, [facility], 165, cm, 09/27/20 14:32:00 EDT, Height Start Date: 12/17/20 Status: Ordered PARoxetine 40 mg oral tablet See Instructions, TAKE 1.5 TABLETS BY MOUTH DAILY, # 45 tablet, Refills 5, Tot. Refills 5, 216:39:00 EDT, Instructions Replace Required Details, Route to [facility]ically, [facility], 165, cm, 08/28/20 10:55:00 EDT, Height [...] lumbar region(Confirmed) 5 2005 Active 1repeat PAP 15 2tear on MRI [...]
--- OUTSIDE RECORDS SUMMARY | 2022-10-15 19:33 | XMS_ITS | Continuity of Care Document ---
Author Name Unknown Organization [facility] ter Address [address] [place] [address]- Care Team Providers Care Medical Cost Consultant Name Role Phone Dominik Fenton DO Primary Care Physician [phone] Encounter [facility] [place] Date(s): 01/23/22 - 01/23/[address] [address]- Discharge Disposition: A-D/C Home Attending Physician: Prince Howard MD Admitting Physician: Prince Howard MD Referring Physician: Not on Staff, Referring MD Allergies, Adverse Reactions, Alerts Substance Reaction Severity Status Vicodin Active Tylenol with Codeine #3 1 upset stomach A ctive Latex Active 1upset stoama Immunizations Given and Recorded Vaccine Date Status Refusal Reason SARS-CoV-2 mRNA (onstmya-cimu-byild) vax 03/20/21 Recorded SARS-CoV-2 (COVID-19) mRNA BNT-162b2 vac 02/27/21 Recorded tetanus/diphtheria/pertussis, acel(Tdap) 07/03/16 Given Medications amLODIPine 5 mg oral tablet 1 tablet, By Mouth, Daily, # 30 tablet, 2 Refills, Maintenance, 12/24/21 12:39:00 EST, [facility] STORE 91394, 165, cm, 10/29/21 13:38:00 EDT, Height Start Date: 12/24/21 Status: Ordered atorvastatin 80 mg oral tablet 1 tablet, By Mouth, Daily, # 90 tablet, 1 Refills, 10/30/21 6:19:00 EDT, [facility]/pharmacy #1026, 165, cm, 10/29/21 13:38:00 EDT, Height Start Date: 10/30/21 Status: Ordered cloNIDine 0.1 mg oral tablet 0.5, By Mouth, Daily at bedtime, PRN, # 30 tablet, Refills 5, Tot. Refills 5, Maintenance, Sleep, 08/03/19 12:54:00 EDT, Route to Pharmacy Electronically, [facility]/pharmacy #1026, 165, cm, 03/03/19 9:23:00 EST, Height Start Date: 08/03/19 Stop Date: 01/30/20 Status: Ordered doxycycline hyclate 100 mg oral capsule 1 capsule = 100 mg, By Mouth, 2 times a day, for 7 days, # 14 capsule, 0 Refills, Acute 01/30/22 21:44:00 EST, 01/23/22 21:44:00 EST, Capsule, [facility], Partial fill upon patient request ifthe prescription is for a schedule II opioid drug.,... Start Date: 01/23/22 Stop Date: 01/30/22 Status: Ordered hydrochlorothiazide 25 mg oral tablet 1, tablet, By Mouth, Daily, # 30 tablet, Refills 2, Maintenance, 10/28/21 8:22:00 EDT, Route to Pharmacy Electronically, [facility], 165, cm, 09/27/20 14:32:00 EDT, Height Start Date: 10/28/21 Status: Ordered PARoxetine 40 mg oral tablet See Instructions, Take 1 and 1/2 tablets per day by mouth. (total dose of 60 mg daily), # 45 each, Refills 6, Tot. Refills 6, Maintenance, 11/21/21 8:44:00 EDT, Instructions Replace Required Details,Route to [facility]ically, [facility] Start Date: 11/21/21 Status: Ordered Ventolin HFA 108 mcg/inh inhalation aerosol with adapter 2 puffs, Inhalation, Every 4 hours, PRN NEEDED, WHEEZE., # 18 each, 0 Refills, Maintenance, 12/24/21 16:46:00 EST, [facility], 165, cm, 10/29/21 13:38:00 EDT, Height Start [...] moderate bilateral formainal stenosis on 2009 MRI Vital Signs Most recent to oldest [Reference Range]: 1 2 3 Height 165 cm (01/23/22 8:28 PM) 165 cm (01/23/22 5:34 PM) Weight 84 kg (01/23/22 8:28 PM) 84 kg (01/23/22 5:34 PM) Oxygen Saturation [94-100 %] 96 % (01/23/22 8:28 PM) 96 % (01/23/22 5:34 PM) 96 % (01/23/22 4:29 PM) Pulse Rate [55-90 bpm] 80 bpm (01/23/22 8:28 PM) 83 bpm (01/23/22 5:34 PM) 102 bpm *H* (01/23/22 4:29 PM) Body Mass Index [18.5-24.99 kg/m2] 30.85 kg/m2 *>HHI* (01/23/22 8:28 PM) Blood Pressure [90-138/55-84 mm Hg] 127/77mm Hg (01/23/22 8:28 PM) 135/73mm Hg (01/23/22 5:34 PM) Respiratory Rate [16-30 br/min] 18 br/min (01/23/22 8:28 PM) 16 br/min (01/23/22 5:34 PM) Temperature [96.8-100.4 DegF] 98.3 DegF (01/23/22 8:28 PM) 98.6 DegF (01/23/22 5:34 PM) Mode of Delivery (Oxygen) Room air (01/23/22 8:28 PM) Room air (01/23/22 5:34 PM) Room air (01/23/22 4:29 PM) Blood pressure sites Arm, right (12/16/22 8:28 PM) Temperature Route Oral (01/23/22 8:28 PM) Oral (01/23/22 5:34 PM) Dry Weight 84 kg (01/23/22 8:28 PM) 84 kg (01/23/22 5:34 PM) Social History Social History Type Response Smoking Status 5-9 cigarettes (betw een 1/4 to 1/2 pack)/day in last 30 days; Interested in cessation: No entered on: 06/07/20 Sex Note * Mae Ayala: PERFORM Event Display: Patient Education Leaflets Authored Date: [id number] Infected Epidermoid Cyst (Antibiotic Treatment) ?? [id number] Infected Epidermoid Cyst (Antibiotic Treatment) You have an epidermoid cyst. This is a small, painless lump under your skin. An epidermoid cyst??gary called an epidermal cyst, an epidermal inclusion cyst, or incorrectly, a sebaceous cyst. Epidermoid cysts form slowly under the skin. They can be found on most parts of the body. But they are most often found on areas with more hair such as the scalp, face, upper back, and genitals. Here are some general facts??about these cysts: ??? A cyst is a sac filled with material that is often cheesy, fatty, oily, or stringy. The material inside can be thick. Or it can be a liquid. ??? The area around the cyst may smell bad. If the cyst breaks open, the material inside it often smells bad as well. ??? You can usually move the cyst slightly if you try. ??? The cyst can be smaller than a pea or as large as a few inches. ??? The cyst is usually not painful, unless it becomes inflamed or infected. Your cyst became infected and your healthcare provider wants to treat it with antibiotics. You willlikely take the antibiotics by mouth or apply it as a cream, or both. If the antibiotics don???t clear up the infection, the cyst will need to be drained by making a small cut (incision). Local anesthesia will be used to numb the area before the incision and drainage. Home care ??? Resist the temptation to squeeze or pop the cyst, stick a needle in it, or cut it open. This often leads to a worsening infection and scarring. ??? If antibiotic pills were prescribed, take them exactly as directed. Finish the antibiotic prescribed, even though you may feel better after the first few days. ??? Soak the affected area in hot water or apply a hot pack (a thin, clean towel soaked in hot water) for 20 minutes at a time. Do this 3 to 4 times a day. ??? If your healthcare provider recommended it, apply antibiotic cream or ointment 2 to 3 times a day. ??? You may use gltl-nki-kuiowyp pain medicine to control pain, unless another medicine was given. If you have chronicliver or kidney disease or ever had a stomach ulcer or gastrointestinal bleeding, talk with your healthcare provider before using these medicines. ?? Prevention Once this infection has healed, reduce the risk of future infections by: ??? Keeping the cyst area clean by bathing or showering daily ??? Avoiding tight- fitting clothing in the cyst area ?? Follow-up care Follow up with your healthcare provider, or as advised. If a gauze packing was put in your wound, it should be removed in a few days as advised by your healthcare provider. Check your wound every dayfor the signs listed below. When to get medical advice Call your healthcare provider right away if any of these occur: ??? Pus coming from the cyst ??? Increasing redness around the wound ??? Increasing local pain or swelling ??? Fever of 100.4??F (38??C) or higher, or as advised by your provider ?? Last Reviewed Date: 2021 ?? [id number] The [employer]. All rights reserved. This information is not intended as a substitute for professional medical care. Always follow your healthcare professional's instructions. ?? Patient Care team information Care Team Personnel Name: Dominik Fenton DO Position: [facility] Resident Member Role: PCP Address: Address: [address] [place] [address] Name: Prince Howard MD Position: [facility] ED Medicine MD Member Role: Admitting Physician Address: Address: [address] [place] [address] [place] [address] Name: Mae Ayala Position: [facility] Associate Professional Member Role: ED Physician Air Conditioning Engineer Address: Address: [facility] [address]- [place] Name: Renetta Cardenas Position: [facility] ED TA [facility] Member Role: Patient Care Provider Name: Braulio Jeffries RN Position: [facility] ED RN W/OE and Tasks Member Role: Patient Care Provider Care Team Related Persons Name: KIM DAYCECILIO Address: [address] [place] [address] Name: FERMIN OSPINA Address: home [address] [address]
--- OUTSIDE RECORDS SUMMARY | 2022-10-15 19:33 | XMS_ITS | Continuity of Care Document ---
Author Name Unknown Organization [facility] Address [address] [place] [address]- Care Team Providers Care Cardiovascular Technologist Name Role Phone Dominik Fenton DO Primary Care Physician [phone] [place] [facility] [place]): [place] 04/01/22 [facility] [address] [place], [place] [address] Attending Physician: Rachel Caceres MD Admitting Physician: Rachel Caceres MD Allergies, Adverse Reactions, Alerts Substance Reaction Severity Status Vicodin Active Tylenol with Codeine #3 1 upset stomach A ctive Latex Active 1upset stoamach Immunizations Given and Recorded Vaccine Date Status Refusal Reason SARS-CoV-2 mRNA (qcpsosa-iegi-glgpo) vax 03/20/21 Recorded SARS-CoV-2 (COVID-19) mRNA BNT-162b2 [...] 90 tablet, 1 Refills, 10/30/21 6:19:00 EDT, [id number], 165, cm, 10/29/21 13:38:00 EDT, Height Start Date: 10/30/21 Status: Ordered cloNIDine 0.1 mg oral tablet 0.5, By Mouth, Daily at bedtime, PRN, # 30 tablet, Refills 5, Tot. Refills 5, Maintenance, Sleep, 08/03/19 12:54:00 EDT, Route to Pharmacy Electronically, [facility]/pharmacy #[id number], 165, cm, 03/03/19 9:23:00 EST, Height Start Date: 08/03/19 Stop Date: 01/30/20 Status: Ordered hydrochlorothiazide 25 mg oral tablet 1, tablet, By Mouth, Daily, # 30 tablet, Refills 1, Tot. Refills 1, Maintenance, 02/24/22 16:42:00 EST, Route to Pharmacy Electronically, [facility]/pharmacy #[id number], 165, cm, 01/23/22 20:28:00 EST, Height, 84, kg, 01/23/22 20:28:00 EST, Dry Weight Start Date: 02/24/22 Status: Ordered PARoxetine 40 mg oral tablet See Instructions, Take 1 and 1/2 tablets per day by mouth. (total dose of 60 mg daily), # 45 each, Refills 6, Tot. Refills 6, Maintenance, 11/21/21 8:44:00 EDT, Instructions Replace Required Details,Route to Pharmacy Electronically, [facility]/pharmacy #102... Start Date: 11/21/21 Status: Ordered Percocet 2.5 mg-325 mg oral tablet 2 tablet, By Mouth, Every 6 hours, PRN as needed for pain, # 8 tablet, 0 Refills, Maintenance, 02/12/22 21:04:00 EST, Tablet, [facility]/pharmacy #1026, Partial fill upon patient request if the prescriptionis for a schedule II opioid drug., 2 tablet By Mout... Start Date: 02/12/22 Status: Ordered Ventolin HFA 108 mcg/inh inhalation aerosol with adapter 2 puffs, Inhalation, Every 4 hours, PRN NEEDED, WHEEZE., # 18 each, 0 Refills, Maintenance, 12/24/21 16:46:00 EST, [facility], 165, cm, 10/29/21 13:38:00 EDT, Height Start [...] Active 1repeat PAP 15 2tear on MRI - ordered ?by Ortho [...] Role: PCP Address: Address: [address] [place] [address]- Care Team Related Persons Name: ROBBIE DAY Address: home [address] [place] [address] Name: FERMIN OSPINA Address: [address] [address]
--- OUTSIDE RECORDS SUMMARY | 2022-10-15 19:33 | XMS_ITS | Continuity of Care Document ---
Author Name Unknown Organization [facility] ter Address [address] [place] [address]- Care Team Providers Care Sorting Machine Attendant Name Role Phone Alvarado Sun DO Primary Care Physician [phone] Encounter [facility] [place] Date(s): 09/19/22 - 09/19/[address] [address]- Discharge Disposition: A-D/C Walkout Attending Physician: Not on Staff, Attending MD Admitting Physician: Not on Staff, Admitting MD Referring Physician: Not on Staff, Referring MD Allergies, Adverse Reactions, Alerts Substance Reaction Severity Status Vicodin Active Tylenol with Codeine #3 1 upset stomach A ctive Latex Active 1upset stoamach Immunizations Given and Recorded Vaccine Date Status Refusal Reason SARS-CoV-2 mRNA (cnkcjgg-fzff-zbgxs) vax 03/20/21 Recorded SARS-CoV-2 (COVID-19) mRNA BNT-162b2 vac 02/27/21 Recorded tetanus/diphtheria/pertussis, acel(Tdap) 07/03/16 Given Medications amLODIPine 5 mg oral tablet 1 tablet, By Mouth, Daily, # 30 tablet, 2 Refills, Maintenance, 08/21/22 16:27:00 EDT, [facility], 165, cm, 06/16/22 14:09:00 EDT, Height, 84, kg, 05/27/22 18:42:00 EDT, Dry Weight Start Date: 08/21/22 Status: Ordered atorvastatin 80 mg oral tablet [...] 08/03/19 12:54:00 EDT, Route to Pharmacy Electronically, [facility]/pharmacy #[id number], 165, cm, 03/03/19 9:23:00 EST, Height Start Date: 08/03/19 Stop Date: 01/30/20 Status: Ordered hydrochlorothiazide 25 mg oral tablet 1, tablet, By Mouth, Daily, # 30 tablet, Refills 2, Tot. Refills 2, Maintenance, 07/27/22 13:09:00 EDT, [facility], cm, 06/16/22 14:09:00 EDT, Height, 84, kg, 05/27/22 18:42:00 EDT, Dry Weight Start Date: 07/27/22 Status: Ordered naproxen 500 mg (as sodium) oral tablet, extended release 1 to 2 tablet, By Mouth, Daily, PRN as needed for arthritis, # 20 each, 0 Refills, Maintenance, 05/27/22 19:56:00 EDT, ER Tablet, [facility]/pharmacy #1026, Partial fill upon patient request if the prescription is for a schedule II opioid drug., 165, cm, ... Start Date: 05/27/22 Status: Ordered PARoxetine 40 mg oral tablet 1.5, tablet, By Mouth, Daily, (TOTAL DOSE OF 60 MG DAILY), # 45 tablet, Refills 6, Maintenance, 06/19/22 11:47:00 EDT, Route to Pharmacy Electronically, [facility] ST[facility] 200[facility], 165, cm, 06/16/22 14:09:00 EDT, Height, 84, kg, 05/27/22 18:42:00 EDT, Dry Weight Start Date: 06/19/22 Status: Ordered Ventolin HFA 108 mcg/inh inhalation aerosol with adapter 2 puffs, Inhalation, Every 4 hours, PRN NEEDED, WHEEZE., # 18 each, 0 Refills, Maintenance, 12/24/21 16:46:00 EST, [facility] STORE 26041, 165, cm, 10/29/21 13:38:00 EDT, Height Start [...] Care team information Care Team Personnel Name: Alvarado Sun DO Position: S Resident Member Role: PCP Address: Address: [address] [facility] [place] [place] [address]- Care Team Related Persons Name: ROBBIE DAY Address: home [address] [place] [address] Name: FERMIN OSPINA Address: [address] [address]
--- OUTSIDE RECORDS SUMMARY | 2022-10-15 19:33 | XMS_ITS | Continuity of Care Document ---
Author Name Unknown Organization [facility] Address [address] [place] [address]- Care Team Providers Care Reference And Instruction Librarian Name Role Phone Dominik Fenton DO Primary Care Physician [phone] Encounter [facility] Date(s): 06/15/22 - 07/15/22 [facility] [address] [place] [address]- Allergies, Adverse Reactions, Alerts Substance Reaction Severity Status Vicodin Active Tylenol with Codeine #3 1 upset stomach A ctive Latex Active 1upset stoamach Immunizations Given and Recorded Vaccine Date Status Refusal Reason SARS-CoV-2 mRNA (mztzgaf-dxne-ocnod) vax 03/20/21 Recorded SARS-CoV-2 (COVID-19) mRNA BNT-162b2 [...] 04/23/22 18:40:00 EDT, Route to Pharmacy Electronically, [facility], 165, cm, 04/13/22 13:54:00 EST, Height, 84, [...] 06/19/22 11:47:00 EDT, Route to Pharmacy Electronically, [facility], 165, cm, 06/16/22 14:09:00 EDT, Height, 84, kg, 05/27/22 18:42:00 EDT, Dry Weight Start Date: 06/19/22 Status: Ordered Ventolin HFA 108 mcg/inh inhalation aerosol with adapter 2 puffs, Inhalation, Every 4 hours, PRN NEEDED, WHEEZE., # 18 each, 0 Refills, Maintenance, 12/24/21 16:46:00 EST, [facility], 165, cm, 10/29/21 13:38:00 EDT, Height Start [...] Role: PCP Address: Address: [address] [place] [address]- Care Team Related Persons Name: ROBBIE DAY Address: home [address] [place] [address] Name: FERMIN OSPINA Address: [address] [address]
--- OUTSIDE RECORDS SUMMARY | 2022-10-15 19:33 | XMS_ITS | Continuity of Care Document ---
Author Name Unknown Organization [facility] Address [address] [place] [address]- Care Team Providers Care Will Call Order Clerk Name Role Phone Dominik Fenton DO Primary Care Physician Encounter [facility] Date(s): 01/29/22 - 02/28/22 [facility] [address] [place], [place] [address] Allergies, Adverse Reactions, Alerts Substance Reaction Severity Status Vicodin Active Tylenol with Codeine #3 1 upset stomach A ctive Latex Active 1upset stoamach Immunizations Given and Recorded Vaccine Date Status Refusal Reason SARS-CoV-2 mRNA (xhhcuda-fiel-iopfa) vax 03/20/21 Recorded SARS-CoV-2 (COVID-19) mRNA BNT-162b2 vac 02/27/21 Recorded tetanus/diphtheria/pertussis, acel(Tdap) 07/03/16 Given Medications amLODIPine 5 mg oral tablet 1 tablet, By Mouth, Daily, # 30 tablet, 2 Refills, Maintenance, 12/24/21 12:39:00 EST, [facility], 165, cm, 10/29/21 13:38:00 EDT, Height Start [...] 08/03/19 12:54:00 EDT, Route to [facility], [facility], 165, cm, 03/03/19 9:23:00 EST, Height Start Date: 08/03/19 Stop Date: 01/30/20 Status: Ordered hydrochlorothiazide 25 mg oral tablet 1, tablet, By Mouth, Daily, # 30 tablet, Refills 1, Tot. Refills 1, Maintenance, 02/24/22 16:42:00 EST, Route to Pharmacy Electronically, [facility]/pharmacy #1026, 165, cm, 01/23/22 20:28:00 EST, Height, 84, kg, 01/23/22 20:28:00 EST, Dry Weight Start Date: 02/24/22 Status: Ordered PARoxetine 40 mg oral tablet See Instructions, Take 1 and 1/2 tablets per day by mouth. (total dose of 60 mg daily), # 45 each, Refills 6, Tot. Refills 6, Maintenance, 11/21/21 8:44:00 EDT, Instructions Replace Required Details,Route to Pharmacy Electronically, [facility]/pharmacy #102... Start Date: 11/21/21 Status: Ordered Percocet 2.5 mg-325 mg oral tablet 2 tablet, By Mouth, Every 6 hours, PRN as needed for pain, # 8 tablet, 0 Refills, Maintenance, 02/12/22 21:04:00 EST, Tablet, [facility]/pharmacy #1026, Partial fill upon patient request if the prescriptionis for a schedule II opioid drug., 2 tablet By Mout... Start Date: 02/12/22 Status: Ordered Ventolin HFA 108 mcg/inh inhalation aerosol with adapter 2 puffs, Inhalation, Every 4 hours, PRN NEEDED, WHEEZE., # 18 each, 0 Refills, Maintenance, 12/24/21 16:46:00 EST, [facility] STORE 64004, 165, cm, 10/29/21 13:38:00 EDT, Height Start [...] Role: PCP Address: Address: [address] [place] [address]- Care Team Related Persons Name: ROBBIE DAY Address: home [address] [place] [address] Name: FERMIN OSPINA Address: [address] [address]
--- OUTSIDE RECORDS SUMMARY | 2022-10-15 19:33 | XMS_ITS | Continuity of Care Document ---
Author Name Unknown Organization [facility] Address [address] [place] [address]- Care Team Providers Care Dermatology Physician Name Role Phone Dominik Fenton DO Primary Care Physician [place] [facility] [place](s): 01/30/22 - 03/20/22 [facility] [address] [place] [address]- Attending Physician: Kevan Garcia MD Admitting Physician: Kevan Garcia MD Allergies, Adverse Reactions, Alerts Substance Reaction Severity Status Vicodin Active Tylenol with Codeine #3 1 upset stomach A ctive Latex Active 1upset stoamach Immunizations Given and Recorded Vaccine Date Status Refusal Reason SARS-CoV-2 mRNA (nwdzqod-jjhs-pyoxf) vax 03/20/21 Recorded SARS-CoV-2 (COVID-19) mRNA BNT-162b2 vac 02/27/21 Recorded tetanus/diphtheria/pertussis, acel(Tdap) 07/03/16 Given Medications amLODIPine 5 mg oral tablet 1 tablet, By Mouth, Daily, # 30 tablet, 2 Refills, Maintenance, 12/24/21 12:39:00 EST, [facility] STORE 39[facility], 165, cm, 10/29/21 13:38:00 EDT, Height Start Date: 12/24/21 Status: Ordered atorvastatin 80 mg oral tablet 1 tablet, By Mouth, Daily, # 90 tablet, 1 Refills, 10/30/21 6:19:00 EDT, [facility]/pharmacy #1026, 165, cm, 10/29/21 13:38:00 EDT, Height Start Date: 10/30/21 Status: Ordered cloNIDine 0.1 mg oral tablet 0.5, By Mouth, Daily at bedtime, PRN, # 30 tablet, Refills 5, Tot. Refills 5, Maintenance, Sleep, 08/03/19 12:54:00 EDT, Route to Pharmacy Electronically, [facility]/pharmacy #1026, 165, cm, 03/03/19 9:23:00 EST, Height Start Date: 08/03/19 Stop Date: 01/30/20 Status: Ordered hydrochlorothiazide 25 mg oral tablet 1, tablet, By Mouth, Daily, # 30 tablet, Refills 1, Tot. Refills 1, Maintenance, 02/24/22 16:42:00 EST, Route to Pharmacy Electronically, [facility]/pharmacy #1026, 165, cm, 01/23/22 20:28:00 EST, Height, 84, kg, 01/23/22 20:28:00 EST, Dry Weight Start Date: 02/24/22 Status: Ordered PARoxetine 40 mg oral tablet See Instructions, Take 1 and 1/2 tablets per day by mouth. (total dose of 60 mg daily), # 45 each, Refills 6, Tot. Refills 6, Maintenance, 11/21/21 8:44:00 EDT, Instructions Replace Required Details,Route to Pharmacy Electronically, [facility]/pharmacy #102... Start Date: 11/21/21 Status: Ordered Percocet 2.5 mg-325 mg oral tablet 2 tablet, By Mouth, Every 6 hours, PRN as needed for pain, # 8 tablet, 0 Refills, Maintenance, 02/12/22 21:04:00 EST, Tablet, [facility]/pharmacy #1026, Partial fill upon patient request if the prescriptionis for a schedule II opioid drug., 2 tablet By Mout... Start Date: 02/12/22 Status: Ordered Ventolin HFA 108 mcg/inh inhalation aerosol with adapter 2 puffs, Inhalation, Every 4 hours, PRN NEEDED, WHEEZE., # 18 each, 0 Refills, Maintenance, 12/24/21 16:46:00 EST, [facility] STORE 42184, 165, cm, 10/29/21 13:38:00 EDT, Height Start [...] Role: PCP Address: Address: [address] [place] [address]- Care Team Related Persons Name: ROBBIE DAY Address: home [address] [place] [address] Name: FERMIN OSPINA Address: [address] [address]
--- OUTSIDE RECORDS SUMMARY | 2022-10-15 19:33 | XMS_ITS | Continuity of Care Document ---
Author Name Unknown Organization [facility] Address [address] [place] [address]- Care Team Providers Care Director Risk Name Role Phone Dominik Fenton DO Primary Care Physician Encounter [facility] Date(s): 03/02/22 - 04/01/22 [facility] [address] [place], [place] [address] [place] Encounter Diagnosis Screening cholesterol level(Discharge Diagnosis) - [...] Vaccine Date Status Refusal Reason SARS-CoV-2 mRNA (iotzcsa-hdnb-sgcth) vax 03/20/21 Recorded SARS-CoV-2 (COVID-19) mRNA BNT-162b2 [...] 12:54:00 EDT, Route to Pharmacy Electronically, [facility]/pharmacy #1026, 165, cm, 03/03/19 9:23:00 EST, Height Start Date: 08/03/19 Stop Date: 01/30/20 Status: Ordered hydrochlorothiazide 25 mg oral tablet 1, tablet, By Mouth, Daily, # 30 tablet, Refills 1, Tot. Refills 1, Maintenance, 02/24/22 16:42:00 EST, Route to Pharmacy Electronically, [facility]/pharmacy #1026, 165, cm, 01/23/22 20:28:00 EST, Height, 84, kg, 01/23/22 20:28:00 EST, Dry Weight Start Date: 02/24/22 Status: Ordered PARoxetine 40 mg oral tablet See Instructions, Take 1 and 1/2 tablets per day by mouth. (total dose of 60 mg daily), # 45 each, Refills 6, Tot. Refills 6, Maintenance, 11/21/21 8:44:00 EDT, Instructions Replace Required Details,Route to Pharmacy Electronically, [facility]/pharmacy #102... Start Date: 11/21/21 Status: Ordered Percocet 2.5 mg-325 mg oral tablet 2 tablet, By Mouth, Every 6 hours, PRN as needed for pain, # 8 tablet, 0 Refills, Maintenance, 02/12/22 21:04:00 EST, Tablet, [facility]/pharmacy #1026, Partial fill upon patient request if the prescriptionis for a schedule II opioid drug., 2 tablet By Mout... Start Date: 02/12/22 Status: Ordered Ventolin HFA 108 mcg/inh inhalation aerosol with adapter 2 puffs, Inhalation, Every 4 hours, PRN NEEDED, WHEEZE., # 18 each, 0 Refills, Maintenance, 12/24/21 16:46:00 EST, [facility] STORE 29460, 165, cm, 10/29/21 13:38:00 EDT, Height Start [...] No entered on: 06/07/20 Sex Note * Bibi Fuentes: PERFORM Event Display: Radiology Results Scanned Authored Date: [id number] * Angelique Russell: PERFORM Event Display: Radiology Results Scanned Authored Date: [id number] Patient Care team information Care Team Personnel Name: Dominik Fenton DO Position: S Resident Member Role: PCP Address: Address: [address] [place] [address]- Care Team Related Persons Name: ROBBIE DAY Address: home [address] [place] [address] Name: FERMIN OSPINA Address: [address] [address]
--- OUTSIDE RECORDS SUMMARY | 2022-10-15 19:33 | XMS_ITS | Continuity of Care Document ---
Author Name Unknown Organization [facility] Address [address] [place] [address]- Care Team Providers Care Military Analyst Name Role Phone Dominik Fenton DO Primary Care Physician Encounter [facility] Date(s): 07/09/21 - 08/08/21 [facility] [address] [place], [place] [address] Allergies, Adverse Reactions, Alerts Substance Reaction Severity Status Vicodin Active Tylenol with Codeine #3 1 upset stomach A ctive Latex Active 1upset stoamach Immunizations Given and Recorded Vaccine Date Status Refusal Reason SARS-CoV-2 mRNA (mzllutl-aztd-kcimm) vax 03/20/21 Recorded SARS-CoV-2 (COVID-19) mRNA BNT-162b2 vac 02/27/21 Recorded tetanus/diphtheria/pertussis, acel(Tdap) 07/03/16 Given Medications albuterol CFC free 90 mcg/inh inhalation aerosol 2, puffs, Inhalation, Every 4 hours, PRN, # 6.7 Gm, Refills 0, Tot. Refills 0, Maintenance, 06/23/20 10:17:00 EDT, Aerosol, Route to Pharmacy Electronically, [id number], [facility]/pharmacy #1026, 165, cm, 06/07/20 10:12:00 EDT, Height Start Date: 06/23/20 Status: Ordered amLODIPine 5 mg oral tablet 1 tablet, By Mouth, Daily, # 30 tablet, 2 Refills, [facility], 165, cm, 09/27/20 14:32:00 EDT,Height Start Date: 06/20/21 Status: Ordered atorvastatin 80 mg oral tablet 1 tablet, By Mouth, Daily, # 90 tablet, 1 Refills, 06/27/21 14:09:00 EDT, [facility]/pharmacy #1026, 165, cm, 09/27/20 14:32:00 EDT, Height Start Date: 06/27/21 Status: Ordered cloNIDine 0.1 mg oral tablet 0.5, By Mouth, Daily at bedtime, PRN, # 30 tablet, Refills 5, Tot. Refills 5, Maintenance, Sleep, 08/03/19 12:54:00 EDT, Route to Pharmacy Electronically, [facility]/pharmacy #1026, 165, cm, 03/03/19 9:23:00 EST, Height Start Date: 08/03/19 Stop Date: 01/30/20 Status: Ordered hydrochlorothiazide 25 mg oral tablet 1, tablet, By Mouth, Daily, # 90 tablet, Refills 1, Tot. Refills 1, Maintenance, 12/17/20 9:18:00 EST, Route to Pharmacy Electronically, [facility]/pharmacy #1026, 165, cm, 09/27/20 14:32:00 EDT, Height Start Date: 12/17/20 Status: Ordered PARoxetine 40 mg oral tablet 1.5, tablet, By Mouth, Daily, # 45 tablet, Refills 3, Route to Pharmacy Electronically, [facility] STORE 79951, 165, cm, 09/27/20 14:32:00 EDT, Height Start [...] History Type Response Smoking Status 5-9 cigarettes (deisy harding 1/4 to 1/2 pack)/day in last 30 days; Interested in cessation: No entered on: 06/07/20 Sex
--- OUTSIDE RECORDS SUMMARY | 2022-10-15 19:33 | XMS_ITS | Continuity of Care Document ---
Author Name Unknown Organization [facility] Address [address] [place] [address]- Care Team Providers Care Ear Mold Laboratory Technician Name Role Phone Dominik Fenton DO Primary Care Physician [place] [facility] [place] - 10/27/19 [facility] [address] [place] [address]- [facility] Allergies, Adverse Reactions, Alerts Substance Reaction Severity Status Vicodin Active Tylenol with Codeine #3 1 upset stomach A ctive Latex Active 1upset stoamach Immunizations Given and Recorded Vaccine Date Status Refusal Reason tetanus/diphtheria/pertussis, acel(Tdap) 07/03/16 Given Medications amLODIPine 5 mg oral tablet 5 mg, 1, tablet, By Mouth, Daily, # 90 tablet, Refills 2, Tot. Refills 2, Maintenance, 09/27/19 15:29:00 EDT, Route to Pharmacy Electronically, [facility]/pharmacy #1026, 165, cm, 03/03/19 9:23:00 EST, Height Start Date: 09/27/19 Stop Date: 06/23/20 Status: Ordered atorvastatin 80 mg oral tablet 1 tablet = 80 mg, By Mouth, Daily, # 90 tablet, 2 Refills, Maintenance, 09/08/19 18:08:00 EDT, Tablet, [facility]/pharmacy #1026, 165, cm, 03/03/19 9:23:00 EST, Height Start Date: 09/08/19 Status: Ordered chlorhexidine 4% topical soap See Instructions, Apply Topically Once a week to affected areas, # 240 mL, 0 Refills, Soft Stop, 03/10/19 18:18:00 EST, [facility], Apply Topically Once a week to affected areas, 165, cm, 03/03/19 9:23:00 EST, Height Start Date: 03/10/19 Status: Ordered cloNIDine 0.1 mg oral tablet 0.5, By Mouth, Daily at bedtime, PRN, # 15 tablet, Refills 5, Tot. Refills 5, Maintenance, Insomnia, 02/05/18 22:57:38 EST, Route to Pharmacy Electronically, [id number], [facility]/pharmacy #1026 Start Date: 02/05/18 Stop Date: 08/04/18 Status: Ordered cloNIDine 0.1 mg oral tablet 0.5, By Mouth, Daily at bedtime, PRN, # 30 tablet, Refills 5, Tot. Refills 5, Maintenance, Sleep, 08/03/19 12:54:00 EDT, Route to Pharmacy Electronically, [facility]/pharmacy #1026, 165, cm, 03/03/19 9:23:00 EST, Height Start Date: 08/03/19 Stop Date: 01/30/20 Status: Ordered hydrochlorothiazide 25 mg oral tablet 25 mg, 1, tablet, By Mouth, Daily, # 90 tablet, Refills 2, Tot. Refills 2, Maintenance, 12/16/18 14:39:27 EST, Route to Pharmacy Electronically, [id number], [facility]/pharmacy #1026 Start Date: 12/16/18 Stop Date: 09/12/19 Status: Ordered ibuprofen 800 mg oral tablet 800 mg, 1, tablet, By Mouth, 3 times a day, PRN, # 30 tablet, Refills 2, Tot. Refills 2, Maintenance, Pain, 12/08/16 17:13:13, Route to Pharmacy Electronically, [id number], [facility]/pharmacy #1026 Start Date: 12/08/16 Status: Ordered [...] 12/16/18 14:39:20 EST, Route to Pharmacy Electronically, [id number], [facility]/pharmacy #1026 Start Date: 12/16/18 Stop Date: 06/14/19 Status: Ordered Paxil 40 mg oral tablet 60 mg, 1.5, tablet, By Mouth, Daily, # 45 tablet, Refills 5, Tot. Refills 5, Maintenance, 07/21/19 16:48:00 EDT, Route to Pharmacy Electronically, [facility]/pharmacy #1026, 165, cm, 03/03/19 9:23:00 EST, Height Start Date: 07/21/19 Status: Ordered traZODone 100 mg oral tablet 200 mg, 2, tablet, By Mouth, Daily at bedtime, # 60 tablet, Refills 5, Tot. Refills 5, Maintenance,02/05/18 22:57:41 EST, Route to Pharmacy Electronically, [id number], [facility]/pharmacy #1026 Start Date: 02/05/18 Status: Ordered traZODone 100 mg oral tablet 200 mg, 2, tablet, By Mouth, Daily at bedtime, PRN, # 30 tablet, Refills 5, Tot. Refills 5, Maintenance, Sleep, 07/30/18 20:00:00 EDT, Route to Pharmacy Electronically, [id number], [facility]/pharmacy #1026 Start Date: 07/30/18 Stop Date: [...] ducts(Confirmed) Active Spinal stenosis of lumbar region(Confirmed) 2005 Active 1repeat PAP 02/22 2tear on [...]
--- OUTSIDE RECORDS SUMMARY | 2022-10-15 19:33 | XMS_ITS | Continuity of Care Document ---
Author Name Unknown Organization [facility] Address [address] [place] [address]- Care Team Providers Care Heat Treater Name Role Phone Dominik Fenton DO Primary Care Physician Encounter [facility] Date(s): 01/26/22 - 02/28/22 [facility] [address] [place] [address]- Attending Physician: Kevan Garcia MD Admitting Physician: Kevan Garcia MD Allergies, Adverse Reactions, Alerts Substance Reaction Severity Status Vicodin Active Tylenol with Codeine #3 1 upset stomach A ctive Latex Active 1upset stoamach Immunizations Given and Recorded Vaccine Date Status Refusal Reason SARS-CoV-2 mRNA (trrelai-hfqc-qasql) vax 03/20/21 Recorded SARS-CoV-2 (COVID-19) mRNA BNT-162b2 vac 02/27/21 Recorded tetanus/diphtheria/pertussis, acel(Tdap) 07/03/16 Given Medications amLODIPine 5 mg oral tablet 1 tablet, By Mouth, Daily, # 30 tablet, 2 Refills, Maintenance, 12/24/21 12:39:00 EST, [facility] STORE 60075, 165, cm, 10/29/21 13:38:00 EDT, Height Start Date: 12/24/21 Status: Ordered atorvastatin 80 mg oral tablet 1 tablet, By Mouth, Daily, # 90 tablet, 1 Refills, 10/30/21 6:19:00 EDT, [facility]/pharmacy #[id number], 165, cm, 10/29/21 13:38:00 EDT, Height Start Date: 10/30/21 Status: Ordered cloNIDine 0.1 mg oral tablet 0.5, By Mouth, Daily at bedtime, PRN, # 30 tablet, Refills 5, Tot. Refills 5, Maintenance, Sleep, 08/03/19 12:54:00 EDT, Route to Pharmacy Electronically, [facility]/pharmacy #[id number], 165, cm, 03/03/19 9:23:00 EST, Height Start Date: 08/03/19 Stop Date: 01/30/20 Status: Ordered hydrochlorothiazide 25 mg oral tablet 1, tablet, By Mouth, Daily, # 30 tablet, Refills 1, Tot. Refills 1, Maintenance, 02/24/22 16:42:00 EST, Route to Pharmacy Electronically, [facility]/pharmacy #[id number], 165, cm, 01/23/22 20:28:00 EST, Height, 84, kg, 01/23/22 20:28:00 EST, Dry Weight Start Date: 02/24/22 Status: Ordered PARoxetine 40 mg oral tablet See Instructions, Take 1 and 1/2 tablets per day by mouth. (total dose of 60 mg daily), # 45 each, Refills 6, Tot. Refills 6, Maintenance, 11/21/21 8:44:00 EDT, Instructions Replace Required Details,Route to Pharmacy Electronically, [facility]/pharmacy #102... Start Date: 11/21/21 Status: Ordered Percocet 2.5 mg-325 mg oral tablet 2 tablet, By Mouth, Every 6 hours, PRN as needed for pain, # 8 tablet, 0 Refills, Maintenance, 02/12/22 21:04:00 EST, Tablet, [facility]/pharmacy #1026, Partial fill upon patient request if the prescriptionis for a schedule II opioid drug., 2 tablet By Mout... Start Date: 02/12/22 Status: Ordered Ventolin HFA 108 mcg/inh inhalation aerosol with adapter 2 puffs, Inhalation, Every 4 hours, PRN NEEDED, WHEEZE., # 18 each, 0 Refills, Maintenance, 12/24/21 16:46:00 EST, [facility]ORE 87816, 165, cm, 10/29/21 13:38:00 EDT, Height Start [...] Spinal stenosis of lumbar region 5 Confirmed 2006 Active Tobacco use Confirmed Active 1repeat PAP [...] Resident Member Role: PCP Address: Address: [address] [place] [address]- Care Team Related Persons Name: ROBBIE DAY Address: home [address] [place] [address] Name: FERMIN OSPINA Address: [address] [address]
--- OUTSIDE RECORDS SUMMARY | 2022-10-15 19:33 | XMS_ITS | Continuity of Care Document ---
Author Name Unknown Organization [facility] Adult [facility] Address [address] [place] [address]- Care Team Providers Care Hardwood Floor Refinisher Name Role Phone Dominik Fenton DO Primary Care Physician Encounter [facility] Date(s): 01/26/22 - 02/25/22 [facility] [address] [place] [address]- Allergies, Adverse Reactions, Alerts Substance Reaction Severity Status Vicodin Active Tylenol with Codeine #3 1 upset stomach A ctive Latex Active 1upset stoamach Immunizations Given and Recorded Vaccine Date Status Refusal Reason SARS-CoV-2 mRNA (fvrhnkn-kyno-zwole) vax 03/20/21 Recorded SARS-CoV-2 (COVID-19) mRNA BNT-162b2 vac 02/27/21 Recorded tetanus/diphtheria/pertussis, acel(Tdap) 07/03/16 Given Medications amLODIPine 5 mg oral tablet 1 tablet, By Mouth, Daily, # 30 tablet, 2 Refills, Maintenance, 12/24/21 12:39:00 EST, [facility], 165, cm, 10/29/21 13:38:00 EDT, Height Start [...] 12/24/21 16:46:00 EST, [facility] 23917, 165, cm, 10/29/21 13:38:00 EDT, Height Start [...] Role: PCP Address: Address: [address] [place] [address]- Care Team Related Persons Name: ROBBIE DAY Address: [address] [place] [address] Name: FERMIN OSPINA Address: [address] [address]
--- OUTSIDE RECORDS SUMMARY | 2022-10-15 19:33 | XMS_ITS | Continuity of Care Document ---
Author Name Unknown Organization [facility] Address [address] [place] [address]- Care Team Providers Care Rebar Bender Name Role Phone Dominik Fenton DO Primary Care Physician [phone] Encounter [facility] Date(s): 09/16/20 - 10/16/20 [facility] [address] [place] [id number] Allergies, Adverse Reactions, [...] 10:17:00 EDT, Aerosol, Route to Pharmacy Electronically, [id number], [facility], 165, cm, 06/07/20 10:12:00 EDT, Height Start Date: 06/23/20 Status: Ordered amLODIPine 5 mg oral tablet 1 tablet, By Mouth, Daily, # 90 tablet, 0 Refills, Maintenance, 09/16/20 14:17:00 EDT, [facility], 165, cm, 08/28/20 10:55:00 EDT, Height Start Date: 09/16/20 Status: Ordered atorvastatin 80 mg oral tablet 1 tablet = 80 mg, By Mouth, Daily, # 90 tablet, 1 Refills, Maintenance, 06/24/20 15:16:00 EDT, Tablet, [facility]/pharmacy #1026, 165, cm, 06/07/20 10:12:00 EDT, Height Start Date: 06/24/20 Status: Ordered cloNIDine 0.1 mg oral tablet 0.5, By Mouth, Daily at bedtime, PRN, # 30 tablet, Refills 5, Tot. Refills 5, Maintenance, Sleep, 08/03/19 12:54:00 EDT, Route to Pharmacy Electronically, [facility]/pharmacy #1026, 165, cm, 03/03/19 9:23:00 EST, Height Start Date: 08/03/19 Stop Date: 01/30/20 Status: Ordered hydrochlorothiazide 25 mg oral tablet 1, tablet, By Mouth, Daily, # 90 tablet, Refills 1, Tot. Refills 1, Maintenance, 09/17/20 6:39:00 EDT, Route to Pharmacy Electronically, [facility]/pharmacy #1026, 165, cm, 08/28/20 10:55:00 EDT, Height Start Date: 09/17/20 Status: Ordered PARoxetine 40 mg oral tablet See Instructions, TAKE 1.5 TABLETS BY MOUTH DAILY, # 45 tablet, Refills 5, Tot. Refills 5, 216:39:00 EDT, Instructions Replace Required Details, Route to Pharmacy Electronically, [facility]/pharmacy #1026, 165, cm, 08/28/20 10:55:00 EDT, Height [...]
--- OUTSIDE RECORDS SUMMARY | 2022-10-15 19:33 | XMS_ITS | Continuity of Care Document ---
Author Name Unknown Organization [facility] Adult [facility] Address [address] [place] [address]- Care Team Providers Care Product Marketer Name Role Phone Dominik Fenton DO Primary Care Physician [phone] Encounter [facility] Date(s): 06/23/21 - 07/23/21 [facility] [address] [place] [address]- Allergies, Adverse Reactions, Alerts Substance Reaction Severity Status Vicodin Active Tylenol with Codeine #3 1 upset stomach A ctive Latex Active 1upset stoamach Immunizations Given and Recorded Vaccine Date Status Refusal Reason SARS-CoV-2 mRNA (rfzhriz-qlzo-ejfdv) vax 03/20/21 Recorded SARS-CoV-2 (COVID-19) mRNA BNT-162b2 vac 02/27/21 Recorded tetanus/diphtheria/pertussis, acel(Tdap) 07/03/16 Given Medications albuterol CFC free 90 mcg/inh inhalation aerosol 2, puffs, Inhalation, Every 4 hours, PRN, # 6.7 Gm, Refills 0, Tot. Refills 0, Maintenance, 06/23/20 10:17:00 EDT, Aerosol, Route to Pharmacy Electronically, [id number], [facility]/pharmacy #1026, 165, cm, 06/07/20 10:12:00 EDT, Height Start Date: 06/23/20 Status: Ordered amLODIPine 5 mg oral tablet 1 tablet, By Mouth, Daily, # 30 tablet, 2 Refills, [facility], 165, cm, 09/27/20 14:32:00 EDT,Height Start Date: 06/20/21 Status: Ordered atorvastatin 80 mg oral tablet 1 tablet, By Mouth, Daily, # 90 tablet, 1 Refills, 06/27/21 14:09:00 EDT, [facility]/pharmacy #1026, 165, cm, 09/27/20 14:32:00 EDT, Height Start Date: 06/27/21 Status: Ordered cloNIDine 0.1 mg oral tablet 0.5, By Mouth, Daily at bedtime, PRN, # 30 tablet, Refills 5, Tot. Refills 5, Maintenance, Sleep, 08/03/19 12:54:00 EDT, Route to Pharmacy Electronically, [facility]/pharmacy #1026, 165, cm, 03/03/19 9:23:00 EST, Height Start Date: 08/03/19 Stop Date: 01/30/20 Status: Ordered hydrochlorothiazide 25 mg oral tablet 1, tablet, By Mouth, Daily, # 90 tablet, Refills 1, Tot. Refills 1, Maintenance, 12/17/20 9:18:00 EST, Route to Pharmacy Electronically, [facility]/pharmacy #1026, 165, cm, 09/27/20 14:32:00 EDT, Height Start Date: 12/17/20 Status: Ordered PARoxetine 40 mg oral tablet 1.5, tablet, By Mouth, Daily, # 45 tablet, Refills 3, Route to Pharmacy Electronically, [facility] STORE 60918, 165, cm, 09/27/20 14:32:00 EDT, Height Start [...]
--- OUTSIDE RECORDS SUMMARY | 2022-10-15 19:33 | XMS_ITS | Continuity of Care Document ---
Author Name Unknown Organization [facility] Address [address] [place] [address]- Care Team Providers Care Ecological Economist Name Role Phone Dominik Fenton DO Primary Care Physician Encounter [facility] Date(s): 07/31/21 - 09/28/21 [facility] [address] [place], [place] [address] Attending Physician: Not on Staff, Attending MD Allergies, Adverse Reactions, Alerts Substance Reaction Severity Status Vicodin Active Tylenol with Codeine #3 1 upset stomach A ctive Latex Active 1upset stoamach Immunizations Given and Recorded Vaccine Date Status Refusal Reason SARS-CoV-2 mRNA (ddhwzee-bvjt-sbmpt) vax 03/20/21 Recorded SARS-CoV-2 (COVID-19) mRNA BNT-162b2 vac 02/27/21 Recorded tetanus/diphtheria/pertussis, acel(Tdap) 07/03/16 Given Medications albuterol CFC free 90 mcg/inh inhalation aerosol 2, puffs, Inhalation, Every 4 hours, PRN, # 6.7 Gm, Refills 0, Tot. Refills 0, Maintenance, 06/23/20 10:17:00 EDT, Aerosol, Route to Pharmacy Electronically, [id number], [facility], 165, cm, 06/07/20 10:12:00 EDT, Height Start Date: 06/23/20 Status: Ordered amLODIPine 5 mg oral tablet 1 tablet, By Mouth, Daily, # 30 tablet, 2 Refills, 09/26/21 14:58:00 EDT, [facility], 165, cm, 09/27/20 14:32:00 EDT, Height Start Date: 09/26/21 Status: Ordered atorvastatin 80 mg oral tablet 1 tablet, By Mouth, Daily, # 90 tablet, 1 Refills, 06/27/21 14:09:00 EDT, [facility]/pharmacy #1026, 165, cm, 09/27/20 14:32:00 EDT, Height Start Date: 06/27/21 Status: Ordered cloNIDine 0.1 mg oral tablet 0.5, By Mouth, Daily at bedtime, PRN, # 30 tablet, Refills 5, Tot. Refills 5, Maintenance, Sleep, 08/03/19 12:54:00 EDT, Route to Pharmacy Electronically, [facility]/pharmacy #1026, 165, cm, 03/03/19 9:23:00 EST, Height Start Date: 08/03/19 Stop Date: 01/30/20 Status: Ordered hydrochlorothiazide 25 mg oral tablet 1, tablet, By Mouth, Daily, # 90 tablet, Refills 1, Tot. Refills 1, Maintenance, 12/17/20 9:18:00 EST, [facility]ically[facility] 165, cm, 09/27/20 14:32:00 EDT, Height Start Date: 12/17/20 Status: Ordered PARoxetine 40 mg oral tablet 1.5, tablet, By Mouth, Daily, # 45 tablet, Refills 3, Route to Pharmacy Electronically, [facility] STORE 02229, 165, cm, 09/27/20 14:32:00 EDT, Height Start [...]
--- OUTSIDE RECORDS SUMMARY | 2022-10-15 19:33 | XMS_ITS | Continuity of Care Document ---
Author Name Unknown Organization [facility] Address [address] [place] [address]- Care Team Providers Care Vice President Of Customer Service Name Role Phone Dominik Fenton DO Primary Care Physician [phone] Encounter [facility] Date(s): 09/02/21 - 11/26/21 [facility] [address] [place], [place] [address] Attending Physician: Not on Staff, Attending MD Allergies, Adverse Reactions, Alerts Substance Reaction Severity Status Vicodin Active Tylenol with Codeine #3 1 upset stomach A ctive Latex Active 1upset stoamach Immunizations Given and Recorded Vaccine Date Status Refusal Reason SARS-CoV-2 mRNA (xxlriju-bree-cxhmq) vax 03/20/21 Recorded SARS-CoV-2 (COVID-19) mRNA BNT-162b2 vac 02/27/21 Recorded tetanus/diphtheria/pertussis, acel(Tdap) 07/03/16 Given Medications albuterol CFC free 90 mcg/inh inhalation aerosol 2, puffs, Inhalation, Every 4 hours, PRN, # 6.7 Gm, Refills 0, Tot. Refills 0, Maintenance, 10/30/21 6:20:00 EDT, Aerosol, Route to Pharmacy Electronically, [id number], [facility], 165, cm, 10/29/21 13:38:00 EDT, Height Start Date: 10/30/21 Status: Ordered amLODIPine 5 mg oral tablet 1 tablet, By Mouth, Daily, # 30 tablet, 2 Refills, 09/26/21 14:58:00 EDT, [facility], 165, cm, 09/27/20 14:32:00 EDT, Height Start Date: 09/26/21 Status: Ordered atorvastatin 80 mg oral tablet 1 tablet, By Mouth, Daily, # 90 tablet, 1 Refills, 10/30/21 6:19:00 EDT, [facility]/pharmacy #1026, 165, cm, 10/29/21 13:38:00 [...] 10/28/21 8:22:00 EDT, Route to Pharmacy Electronically, [facility] ST[facility] 29110, 165, cm, 09/27/20 14:32:00 EDT, Height Start Date: 10/28/21 Status: Ordered PARoxetine 40 mg oral tablet See Instructions, Take 1 and 1/2 tablets per day by mouth. (total dose of 60 mg daily), # 45 each, Refills 6, Tot. Refills 6, Maintenance, 11/21/21 8:44:00 EDT, Instructions Replace Required Details,Route to Pharmacy Electronically, [facility]/pharmacy #102... Start Date: 11/21/21 Status: [...] Active Tobacco use Confirmed Active 1repeat PAP 1/15 2tear on MRI - ordered ?by Ortho [...] Personnel Name: Dominik Fenton DO Address: Address: [address] [place] [address]
--- OUTSIDE RECORDS SUMMARY | 2022-10-15 19:33 | XMS_ITS | Continuity of Care Document ---
Author Name Unknown Organization [facility] Adult [facility] Address [address] [place] [address]- Care Team Providers Care Underground Mine Machinery Mechanic Name Role Phone Dominik Fenton DO Primary Care Physician Encounter [facility] Date(s): 04/29/22 - 05/29/22 [facility] [address] [place], [place] [address] Allergies, Adverse Reactions, Alerts Substance Reaction Severity Status Vicodin Active Tylenol with Codeine #3 1 upset stomach A ctive Latex Active 1upset stoamach Immunizations Given and Recorded Vaccine Date Status Refusal Reason SARS-CoV-2 mRNA (uppfxfk-ukdz-ohddk) vax 03/20/21 Recorded SARS-CoV-2 (COVID-19) mRNA BNT-162b2 [...] 08/03/19 12:54:00 EDT, Route to Pharmacy Electronically, [facility]/pharmacy #1026, 165, cm, 03/03/19 9:23:00 EST, Height Start Date: 08/03/19 Stop Date: 01/30/20 Status: Ordered hydrochlorothiazide 25 mg oral tablet 1, tablet, By Mouth, Daily, # 30 tablet, Refills 2, Maintenance, 04/23/22 18:40:00 EDT, Route to Pharmacy Electronically, [facility] 01962, 165, cm, 04/13/22 13:54:00 EST, Height, 84, kg, 01/23/22 20:28:00 EST, Dry Weight Start Date: 04/23/22 Status: Ordered naproxen 500 mg (as sodium) oral tablet, extended release 1 to 2 tablet, By Mouth, Daily, PRN as needed for arthritis, # 20 each, 0 Refills, Maintenance, 05/27/22 19:56:00 EDT, ER Tablet, [facility], Partial fill upon patient request if [...] Instructions Replace Required Details,Route to Pharmacy Electronically, [facility]/pharmacy #102... Start Date: 11/21/21 Status: Ordered Ventolin HFA 108 mcg/inh inhalation aerosol with adapter 2 puffs, Inhalation, Every 4 hours, PRN NEEDED, WHEEZE., # 18 each, 0 Refills, Maintenance, 12/24/21 16:46:00 EST, [facility] 33203, 165, cm, 10/29/21 13:38:00 EDT, Height Start [...] Role: PCP Address: Address: [address] [place] [address]- Care Team Related Persons Name: ROBBIE DAY Address: home [address] [place] [address] Name: FERMIN OSPINA Address: [address] [address]
--- OUTSIDE RECORDS SUMMARY | 2022-10-15 19:33 | XMS_ITS | Continuity of Care Document ---
Author Name Unknown Organization [facility] Adult [facility] Address [address] [place] [address]- Care Team Providers Care Mine Engineer Name Role Phone Dominik Fenton DO Primary Care Physician [phone] Encounter [facility] Date(s): 05/28/22 - 06/28/22 [facility] [address] [place], [place] [address] Attending Physician: Adalid HALEY, Minerva Pimentel Admitting Physician: Adalid HALEY, Minerva Pimentel Allergies, Adverse Reactions, Alerts Substance Reaction Severity Status Vicodin Active Tylenol with Codeine #3 1 upset stomach A ctive Latex Active 1upset stoamach Immunizations Given and Recorded Vaccine Date Status Refusal Reason SARS-CoV-2 mRNA (wwekcox-jkib-dkens) vax 03/20/21 Recorded SARS-CoV-2 (COVID-19) mRNA BNT-162b2 [...] 08/03/19 12:54:00 EDT, Route to Pharmacy Electronically, [facility]/pharmacy #1026, 165, cm, 03/03/19 9:23:00 EST, Height Start Date: 08/03/19 Stop Date: 01/30/20 Status: Ordered hydrochlorothiazide 25 mg oral tablet 1, tablet, By Mouth, Daily, # 30 tablet, Refills 2, Maintenance, 04/23/22 18:40:00 EDT, Route to Pharmacy Electronically, [facility] 352[facility], 165, cm, 04/13/22 13:54:00 EST, Height, 84, kg, 01/23/22 20:28:00 EST, Dry Weight Start Date: 04/23/22 Status: Ordered naproxen 500 mg (as sodium) oral tablet, extended release 1 to 2 tablet, By Mouth, Daily, PRN as needed for arthritis, # 20 each, 0 Refills, Maintenance, 05/27/22 19:56:00 EDT, ER Tablet, [facility]/pharmacy #1026, Partial fill upon patient request if the prescription is for a schedule II opioid drug., 165, cm, ... Start Date: 05/27/22 Status: Ordered PARoxetine 40 mg oral tablet 1.5, tablet, By Mouth, Daily, (TOTAL DOSE OF 60 MG DAILY), # 45 tablet, Refills 6, Maintenance, 06/19/22 11:47:00 EDT, Route to Pharmacy Electronically, [facility] 335[facility], 165, cm, 06/16/22 14:09:00 EDT, Height, 84, kg, 05/27/22 18:42:00 EDT, Dry Weight Start Date: 06/19/22 Status: Ordered Ventolin HFA 108 mcg/inh inhalation aerosol with adapter 2 puffs, Inhalation, Every 4 hours, PRN NEEDED, WHEEZE., # 18 each, 0 Refills, Maintenance, 12/24/21 16:46:00 EST, [facility] 84965, 165, cm, 10/29/21 13:38:00 EDT, Height Start [...] 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
--- OUTSIDE RECORDS SUMMARY | 2022-10-15 19:33 | XMS_ITS | Continuity of Care Document ---
Author Name Unknown Organization [facility] Address [address] [place] [address]- Care Team Providers Care Wood Furniture Assembler Name Role Phone Dominik Fenton DO Primary Care Physician Encounter [facility] Date(s): 05/21/20 - 06/20/20 [facility] [address] [place] [address]- Allergies, Adverse Reactions, Alerts Substance Reaction Severity [...] 03/31/20 15:06:00 EST, Route to Pharmacy Electronically, [facility]/pharmacy #1026, 165, cm, 01/18/20 15:16:00 EST, Height Start Date: 03/31/20 Stop Date: 06/29/20 Status: Ordered atorvastatin 80 mg oral tablet 1 tablet = 80 mg, By Mouth, Daily, # 90 tablet, 2 Refills, Maintenance, 09/08/19 18:08:00 EDT, Tablet, [facility]/pharmacy #1026, 165, cm, 03/03/19 9:23:00 EST, Height Start Date: 09/08/19 Status: Ordered cloNIDine 0.1 mg oral tablet 0.5, By Mouth, Daily at bedtime, PRN, # 30 tablet, Refills 5, Tot. Refills 5, Maintenance, Sleep, 08/03/19 12:54:00 EDT, Route to Pharmacy Electronically, [facility]/pharmacy #1026, 165, cm, 03/03/19 9:23:00 EST, Height Start Date: 08/03/19 Stop Date: 01/30/20 Status: Ordered hydrochlorothiazide 25 mg oral tablet 1, tablet, By Mouth, Daily, # 90 tablet, Refills 0, Tot. Refills 0, Maintenance, 06/20/20 9:08:00 EDT, Route to Pharmacy Electronically, [facility] 59012, 165, cm, 06/07/20 10:12:00 EDT, Height Start Date: 06/20/20 Status: Ordered PARoxetine 40 mg oral tablet See Instructions, TAKE 1.5 TABLETS BY MOUTH DAILY, # 45 tablet, Refills 5, Maintenance, Instructions Replace Required Details, Route to Pharmacy Electronically, [facility] 83286, 165, cm, 04/08/20 14:53:00 EST, Height Start [...]
--- OUTSIDE RECORDS SUMMARY | 2022-10-15 19:33 | XMS_ITS | Continuity of Care Document ---
Author Name Unknown Organization [facility] Adult [facility] Address [address] [place] [address]- Care Team Providers Care Armature Bander Name Role Phone Dominik Fenton DO Primary Care Physician [phone] [place] [facility] 06/13/21 - 07/23/21 [facility] [address] [place], [place] [address] Attending Physician: Not on Staff, Attending MD Allergies, Adverse Reactions, Alerts Substance Reaction Severity Status Vicodin Active Tylenol with Codeine #3 1 upset stomach A ctive Latex Active 1upset stoamach Immunizations Given and Recorded Vaccine Date Status Refusal Reason SARS-CoV-2 mRNA (eyblvpi-dlqu-kylur) vax 03/20/21 Recorded SARS-CoV-2 (COVID-19) mRNA BNT-162b2 vac 02/27/21 Recorded tetanus/diphtheria/pertussis, acel(Tdap) 07/03/16 Given Medications albuterol CFC free 90 mcg/inh inhalation aerosol 2, puffs, Inhalation, Every 4 hours, PRN, # 6.7 Gm, Refills 0, Tot. Refills 0, Maintenance, 06/23/20 10:17:00 EDT, Aerosol, Route to Pharmacy Electronically, [id number], [facility]/pharmacy #1026, 165, cm, 06/07/20 10:12:00 EDT, Height Start Date: 06/23/20 Status: Ordered amLODIPine 5 mg oral tablet 1 tablet, By Mouth, Daily, # 30 tablet, 2 Refills, [facility], 165, cm, 09/27/20 14:32:00 EDT,Height Start Date: 06/20/21 Status: Ordered atorvastatin 80 mg oral tablet 1 tablet, By Mouth, Daily, # 90 tablet, 1 Refills, 06/27/21 14:09:00 EDT, [facility]/pharmacy #1026, 165, cm, 09/27/20 14:32:00 EDT, Height Start Date: 06/27/21 Status: Ordered cloNIDine 0.1 mg oral tablet 0.5, By Mouth, Daily at bedtime, PRN, # 30 tablet, Refills 5, Tot. Refills 5, Maintenance, Sleep, 08/03/19 12:54:00 EDT, Route to Pharmacy Electronically, [facility]/pharmacy #1026, 165, cm, 03/03/19 9:23:00 EST, Height Start Date: 08/03/19 Stop Date: 01/30/20 Status: Ordered hydrochlorothiazide 25 mg oral tablet 1, tablet, By Mouth, Daily, # 90 tablet, Refills 1, Tot. Refills 1, Maintenance, 12/17/20 9:18:00 EST, Route to Pharmacy Electronically, [facility]/pharmacy #1026, 165, cm, 09/27/20 14:32:00 EDT, Height Start Date: 12/17/20 Status: Ordered PARoxetine 40 mg oral tablet 1.5, tablet, By Mouth, Daily, # 45 tablet, Refills 3, Route to Pharmacy Electronically, [facility] 438[facility], 165, cm, 09/27/20 14:32:00 EDT, Height Start [...] Type Response Smoking Status 5-9 cigarettes (lidiaw meaghan 1/4 to 1/2 pack)/day in last 30 days; Interested in cessation: No entered on: 06/07/20 Sex
--- OUTSIDE RECORDS SUMMARY | 2022-10-15 19:33 | XMS_ITS | Continuity of Care Document ---
Author Name Unknown Organization [facility] Address [address] [place] [address]- Care Team Providers Care Snag Grinder Name Role Phone Dominik Fenton DO Primary Care Physician Encounter [facility] [place] Date(s): 05/29/22 - 07/05/22 [facility] [address], [place] [address] Attending Physician: Adalid HALEY, Minerva Pimentel Admitting Physician: Adalid HALEY, Minerva Pimentel Allergies, Adverse Reactions, Alerts Substance Reaction Severity Status Vicodin Active Tylenol with Codeine #3 1 upset stomach A ctive Latex Active 1upset stoamach Immunizations Given and Recorded Vaccine Date Status Refusal Reason SARS-CoV-2 mRNA (hdhcmiu-xbmg-apjwk) vax 03/20/21 Recorded SARS-CoV-2 (COVID-19) mRNA BNT-162b2 [...] 04/23/22 18:40:00 EDT, Route to Pharmacy Electronically, [facility], 165, cm, 04/13/22 13:54:00 EST, Height, 84, [...] 06/19/22 11:47:00 EDT, Route to Pharmacy Electronically, [facility] 18[facility], 165, cm, 06/16/22 14:09:00 EDT, Height, 84, kg, 05/27/22 18:42:00 EDT, Dry Weight Start Date: 06/19/22 Status: Ordered Ventolin HFA 108 mcg/inh inhalation aerosol with adapter 2 puffs, Inhalation, Every 4 hours, PRN NEEDED, WHEEZE., # 18 each, 0 Refills, Maintenance, 12/24/21 16:46:00 EST, [facility], 165, cm, 10/29/21 13:38:00 EDT, Height Start [...] Member Role: PCP Address: Address: [address] [place] [address]- Care Team Related Persons Name: ROBBIE DAY Address: home [address] [place] [address] Name: FERMIN OSPINA Address: [address] [address]
--- OUTSIDE RECORDS SUMMARY | 2022-10-15 19:33 | XMS_ITS | Continuity of Care Document ---
Author Name Unknown Organization [facility] Address [address] [place] [address]- Care Team Providers Care Change Management Expert Name Role Phone Dominik Fenton DO Primary Care Physician [phone] Encounter [facility] [place] Date(s): 01/18/20 - 02/17/20 [facility] [address] [place] [address]- Attending Physician: AdmtrLauren Admitting Physician: Admtr, Ar8 Referring Physician: Admtr, Ar8 Allergies, Adverse Reactions, Alerts Substance Reaction Severity [...] 09/27/19 15:29:00 EDT, Route to Pharmacy Electronically, [facility]/pharmacy #1026, 165, cm, 03/03/19 [...] 02/05/18 22:57:38 EST, Route to Pharmacy Electronically, [id number], [facility]/pharmacy #1026 Start Date: 02/05/18 Stop Date: 08/04/18 Status: Ordered cloNIDine 0.1 mg oral tablet 0.5, By Mouth, Daily at bedtime, PRN, # 30 tablet, Refills 5, Tot. Refills 5, Maintenance, Sleep, 08/03/19 12:54:00 EDT, Route to Pharmacy Electronically, [facility]/pharmacy #1026, 165, cm, 03/03/19 9:23:00 EST, Height Start Date: 08/03/19 Stop Date: 01/30/20 Status: Ordered hydrochlorothiazide 25 mg oral tablet 25 mg, 1, tablet, By Mouth, Daily, # 90 tablet, Refills 1, Tot. Refills 1, Maintenance, 11/01/19 14:15:00 EDT, Route to Pharmacy Electronically, [facility]/pharmacy #1026, 165, cm, 03/03/19 9:23:00 EST, Height Start Date: 11/01/19 Stop Date: 04/29/20 Status: Ordered ibuprofen 800 mg oral tablet 800 mg, 1, tablet, By Mouth, 3 times a day, PRN, # 30 tablet, Refills 2, Tot. Refills 2, Maintenance, Pain, 12/08/16 17:13:13, Route to Pharmacy Electronically, [id number], [facility]/pharmacy #1026 Start Date: 12/08/16 Status: Ordered nicotine [...] 12/16/18 14:39:20 EST, Route to Pharmacy Electronically, [id number], [facility]/pharmacy #1026 Start Date: 12/16/18 Stop Date: 06/14/19 Status: Ordered Paxil 40 mg oral tablet 60 mg, 1.5, tablet, By Mouth, Daily, # 45 tablet, Refills 5, Tot. Refills 5, Maintenance, 07/21/19 16:48:00 EDT, Route to Pharmacy Electronically, [facility]/pharmacy #1026, 165, cm, 03/03/19 9:23:00 EST, Height Start Date: 07/21/19 Status: Ordered traZODone 100 mg oral tablet 200 mg, 2, tablet, By Mouth, Daily at bedtime, # 60 tablet, Refills 5, Tot. Refills 5, Maintenance,02/05/18 22:57:41 EST, Route to Pharmacy Electronically, [id number], [facility]/pharmacy #1026 Start Date: 02/05/18 Status: Ordered traZODone 100 mg oral tablet 200 mg, 2, tablet, By Mouth, Daily at bedtime, PRN, # 30 tablet, Refills 5, Tot. Refills 5, Maintenance, Sleep, 07/30/18 20:00:00 EDT, Route to Pharmacy Electronically, [id number], [facility]/pharmacy #1026 Start Date: 07/30/18 Stop Date: 01/26/19 [...]
--- OUTSIDE RECORDS SUMMARY | 2022-10-15 19:33 | XMS_ITS | Continuity of Care Document ---
Author Name Unknown Organization [facility] Address [address] [place] [address]- Care Team Providers Care Production Control Pegboard Clerk Name Role Phone Dominik Fenton DO Primary Care Physician [phone] Encounter [facility] Date(s): 06/25/21 - 08/08/21 [facility] [address] [place] [address]- Attending Physician: Kevan Garcia MD Admitting Physician: Kevan Garcia MD Allergies, Adverse Reactions, Alerts Substance Reaction Severity Status Vicodin Active Tylenol with Codeine #3 1 upset stomach A ctive Latex Active 1upset stoamach Immunizations Given and Recorded Vaccine Date Status Refusal Reason SARS-CoV-2 mRNA (pnxknjx-cstp-ynrwj) vax 03/20/21 Recorded SARS-CoV-2 (COVID-19) mRNA BNT-162b2 vac 02/27/21 Recorded tetanus/diphtheria/pertussis, acel(Tdap) 07/03/16 Given Medications albuterol CFC free 90 mcg/inh inhalation aerosol 2, puffs, Inhalation, Every 4 hours, PRN, # 6.7 Gm, Refills 0, Tot. Refills 0, Maintenance, 06/23/20 10:17:00 EDT, Aerosol, Route to Pharmacy Electronically, [id number], [facility]/pharmacy #1026, 165, cm, 06/07/20 10:12:00 EDT, Height Start Date: 06/23/20 Status: Ordered amLODIPine 5 mg oral tablet 1 tablet, By Mouth, Daily, # 30 tablet, 2 Refills, [facility], 165, cm, 09/27/20 14:32:00 EDT,Height Start Date: 06/20/21 Status: Ordered atorvastatin 80 mg oral tablet 1 tablet, By Mouth, Daily, # 90 tablet, 1 Refills, 06/27/21 14:09:00 EDT, [facility]/pharmacy #1026, 165, cm, 09/27/20 14:32:00 EDT, Height Start Date: 06/27/21 Status: Ordered cloNIDine 0.1 mg oral tablet 0.5, By Mouth, Daily at bedtime, PRN, # 30 tablet, Refills 5, Tot. Refills 5, Maintenance, Sleep, 08/03/19 12:54:00 EDT, Route to Pharmacy Electronically, [facility]/pharmacy #1026, 165, cm, 03/03/19 9:23:00 EST, Height Start Date: 08/03/19 Stop Date: 01/30/20 Status: Ordered hydrochlorothiazide 25 mg oral tablet 1, tablet, By Mouth, Daily, # 90 tablet, Refills 1, Tot. Refills 1, Maintenance, 12/17/20 9:18:00 EST, [facility], cm, 09/27/20 14:32:00 EDT, Height Start Date: 12/17/20 Status: Ordered PARoxetine 40 mg oral tablet 1.5, tablet, By Mouth, Daily, # 45 tablet, Refills 3, Route to Pharmacy Electronically, [facility] 610[facility], 165, cm, 09/27/20 14:32:00 EDT, Height Start [...]
--- OUTSIDE RECORDS SUMMARY | 2022-10-15 19:33 | XMS_ITS | Continuity of Care Document ---
Author Name Unknown Organization [facility] Address [address] [place] [address]- Care Team Providers Care Terrapin Fisher Name Role Phone Dominik Fenton DO Primary Care Physician [place] [facility] [place] - 03/24/20 [facility] [address] [place] [phone]- Allergies, Adverse Reactions, Alerts Substance Reaction Severity [...] 09/27/19 15:29:00 EDT, Route to Pharmacy Electronically, [facility]/pharmacy #1026, 165, cm, 03/03/19 9:23:00 EST, Height Start Date: 09/27/19 Stop Date: 06/23/20 Status: Ordered atorvastatin 80 mg oral tablet 1 tablet = 80 mg, By Mouth, Daily, # 90 tablet, 2 Refills, Maintenance, 09/08/19 18:08:00 EDT, Tablet, [facility]/pharmacy #1026, 165, cm, 03/03/19 9:23:00 EST, Height [...] 02/05/18 22:57:38 EST, Route to Pharmacy Electronically, [id number], [facility]/pharmacy #1026 Start Date: 02/05/18 Stop Date: 08/04/18 Status: Ordered cloNIDine 0.1 mg oral tablet 0.5, By Mouth, Daily at bedtime, PRN, # 30 tablet, Refills 5, Tot. Refills 5, Maintenance, Sleep, 08/03/19 12:54:00 EDT, [facility], 165, cm, 03/03/19 9:23:00 EST, Height Start Date: 08/03/19 Stop Date: 01/30/20 Status: Ordered hydrochlorothiazide 25 mg oral tablet 25 mg, 1, tablet, By Mouth, Daily, # 90 tablet, Refills 1, Tot. Refills 1, Maintenance, 11/01/19 14:15:00 EDT, Route to Pharmacy Electronically, [facility]/pharmacy #1026, 165, cm, 03/03/19 9:23:00 EST, Height Start Date: 11/01/19 Stop Date: 04/29/20 Status: Ordered ibuprofen 800 mg oral tablet 800 mg, 1, tablet, By Mouth, 3 times a day, PRN, # 30 tablet, Refills 2, Tot. Refills 2, Maintenance, Pain, 12/08/16 17:13:13, Route to Pharmacy Electronically, [id number], [facility]/pharmacy #1026 Start Date: 12/08/16 Status: Ordered nicotine [...] 12/16/18 14:39:20 EST, Route to Pharmacy Electronically, [id number], [facility]/pharmacy #1026 Start Date: 12/16/18 Stop Date: 06/14/19 Status: Ordered Paxil 40 mg oral tablet 60 mg, 1.5, tablet, By Mouth, Daily, # 45 tablet, Refills 5, Tot. Refills 5, Maintenance, 07/21/19 16:48:00 EDT, Route to Pharmacy Electronically, [facility]/pharmacy #1026, 165, cm, 03/03/19 9:23:00 EST, Height Start Date: 07/21/19 Status: Ordered traZODone 100 mg oral tablet 200 mg, 2, tablet, By Mouth, Daily at bedtime, # 60 tablet, Refills 5, Tot. Refills 5, Maintenance,02/05/18 22:57:41 EST, Route to Pharmacy Electronically, [id number], [facility]/pharmacy #1026 Start Date: 02/05/18 Status: Ordered traZODone 100 mg oral tablet 200 mg, 2, tablet, By Mouth, Daily at bedtime, PRN, # 30 tablet, Refills 5, Tot. Refills 5, Maintenance, Sleep, 07/30/18 20:00:00 EDT, Route to Pharmacy Electronically, [id number], [facility]/pharmacy #1026 Start Date: 07/30/18 Stop Date: 01/26/19 [...]
--- OUTSIDE RECORDS SUMMARY | 2022-10-15 19:33 | XMS_ITS | Continuity of Care Document ---
Author Name Unknown Organization [facility] Address [address] [place] [address]- Care Team Providers Care Tool Grinder Operator External Name Role Phone Dominik Fenton DO Primary Care Physician [place] [facility] [place]20 - 03/22/20 [facility] [address] [place] [address]- Allergies, Adverse Reactions, Alerts Substance Reaction Severity [...] 09/27/19 15:29:00 EDT, Route to Pharmacy Electronically, [facility]/pharmacy #1026, 165, cm, 03/03/19 9:23:00 EST, Height Start Date: 09/27/19 Stop Date: 06/23/20 Status: Ordered atorvastatin 80 mg oral tablet 1 tablet = 80 mg, By Mouth, Daily, # 90 tablet, 2 Refills, Maintenance, 09/08/19 18:08:00 EDT, Tablet, [facility]/pharmacy #1026, 165, cm, 03/03/19 9:23:00 EST, Height [...] 02/05/18 22:57:38 EST, Route to Pharmacy Electronically, [id number], [facility]/pharmacy #1026 Start Date: 02/05/18 Stop Date: 08/04/18 Status: Ordered cloNIDine 0.1 mg oral tablet 0.5, By Mouth, Daily at bedtime, PRN, # 30 tablet, Refills 5, Tot. Refills 5, Maintenance, Sleep, 08/03/19 12:54:00 EDT, [facility], cm, 03/03/19 9:23:00 EST, Height Start Date: 08/03/19 Stop Date: 01/30/20 Status: Ordered hydrochlorothiazide 25 mg oral tablet 25 mg, 1, tablet, By Mouth, Daily, # 90 tablet, Refills 1, Tot. Refills 1, Maintenance, 11/01/19 14:15:00 EDT, Route to Pharmacy Electronically, [facility]/pharmacy #1026, 165, cm, 03/03/19 9:23:00 EST, Height Start Date: 11/01/19 Stop Date: 04/29/20 Status: Ordered ibuprofen 800 mg oral tablet 800 mg, 1, tablet, By Mouth, 3 times a day, PRN, # 30 tablet, Refills 2, Tot. Refills 2, Maintenance, Pain, 12/08/16 17:13:13, Route to Pharmacy Electronically, [id number], [facility]/pharmacy #1026 Start Date: 12/08/16 Status: Ordered nicotine [...] 12/16/18 14:39:20 EST, Route to Pharmacy Electronically, [id number], [facility]/pharmacy #1026 Start Date: 12/16/18 Stop Date: 06/14/19 Status: Ordered Paxil 40 mg oral tablet 60 mg, 1.5, tablet, By Mouth, Daily, # 45 tablet, Refills 5, Tot. Refills 5, Maintenance, 07/21/19 16:48:00 EDT, Route to Pharmacy Electronically, [facility]/pharmacy #1026, 165, cm, 03/03/19 9:23:00 EST, Height Start Date: 07/21/19 Status: Ordered traZODone 100 mg oral tablet 200 mg, 2, tablet, By Mouth, Daily at bedtime, # 60 tablet, Refills 5, Tot. Refills 5, Maintenance,02/05/18 22:57:41 EST, Route to Pharmacy Electronically, [id number], [facility]/pharmacy #1026 Start Date: 02/05/18 Status: Ordered traZODone 100 mg oral tablet 200 mg, 2, tablet, By Mouth, Daily at bedtime, PRN, # 30 tablet, Refills 5, Tot. Refills 5, Maintenance, Sleep, 07/30/18 20:00:00 EDT, Route to Pharmacy Electronically, [id number], [facility]/pharmacy #1026 Start Date: 07/30/18 Stop Date: 01/26/19 [...]
--- OUTSIDE RECORDS SUMMARY | 2022-10-15 19:33 | XMS_ITS | Continuity of Care Document ---
Author Name Unknown Organization [facility] Address [address] [place] [address]- Care Team Providers Care Plant Electrical Engineer Name Role Phone Dominik Fenton DO Primary Care Physician Encounter [facility] [place] Date(s): 02/27/20 - 03/28/20 [facility] [address] [place] [address]- Encounter Diagnosis Screening cholesterol level(Discharge Diagnosis) - [...] 09/27/19 15:29:00 EDT, Route to Pharmacy Electronically, [facility]/pharmacy #1026, 165, cm, 03/03/19 9:23:00 [...] 0 Refills, Soft Stop, 03/10/19 18:18:00 EST, [facility]/pharmacy #1026, Apply Topically Once a week to affected areas, 165, cm, 03/03/19 9:23:00 EST, Height Start Date: 03/10/19 Status: Ordered cloNIDine 0.1 mg oral tablet 0.5, By Mouth, Daily at bedtime, PRN, # 15 tablet, Refills 5, Tot. Refills 5, Maintenance, Insomnia, 02/05/18 22:57:38 EST, Route to Pharmacy Electronically, [id number], [facility]/pharmacy #1026 Start Date: 02/05/18 Stop Date: 08/04/18 Status: Ordered cloNIDine 0.1 mg oral tablet 0.5, By Mouth, Daily at bedtime, PRN, # 30 tablet, Refills 5, Tot. Refills 5, Maintenance, Sleep, 08/03/19 12:54:00 EDT, [facility], cm, 03/03/19 9:23:00 EST, Height Start Date: 08/03/19 Stop Date: 01/30/20 Status: Ordered hydrochlorothiazide 25 mg oral tablet 25 mg, 1, tablet, By Mouth, Daily, # 90 tablet, Refills 0, Tot. Refills 0, Maintenance, 04/29/20 14:15:00 EDT, [facility], 165, cm, 01/18/20 15:16:00 EST, Height Start Date: 04/29/20 Stop Date: 07/28/20 Status: Ordered hydrochlorothiazide 25 mg oral tablet 25 mg, 1, tablet, By Mouth, Daily, for 90 days, # 90 tablet, Refills 1, Tot. Refills 1, Hard Stop 04/29/20 14:15:00 EDT, 11/01/19 14:15:00 EDT, [facility], [facility], 165, cm, 03/03/19 9:23:00 EST, Height Start Date: 11/01/19 Stop Date: 04/29/20 Status: Ordered ibuprofen 800 mg oral tablet 800 mg, 1, tablet, By Mouth, 3 times a day, PRN, # 30 tablet, Refills 2, Tot. Refills 2, Maintenance, Pain, 12/08/16 17:13:13, Route to Pharmacy Electronically, [id number], [facility]/pharmacy #1026 Start Date: 12/08/16 Status: [...] 12/16/18 14:39:20 EST, Route to Pharmacy Electronically, [id number], [facility]/pharmacy #1026 Start Date: 12/16/18 Stop Date: 06/14/19 Status: Ordered Paxil 40 mg oral tablet 60 mg, 1.5, tablet, By Mouth, Daily, # 45 tablet, Refills 5, Tot. Refills 5, Maintenance, 07/21/19 16:48:00 EDT, Route to Pharmacy Electronically, [facility]/pharmacy #1026, 165, cm, 03/03/19 9:23:00 EST, Height Start Date: 07/21/19 Status: Ordered traZODone 100 mg oral tablet 200 mg, 2, tablet, By Mouth, Daily at bedtime, # 60 tablet, Refills 5, Tot. Refills 5, Maintenance,02/05/18 22:57:41 EST, Route to Pharmacy Electronically, [id number], [facility]/pharmacy #1026 Start Date: 02/05/18 Status: Ordered traZODone 100 mg oral tablet 200 mg, 2, tablet, By Mouth, Daily at bedtime, PRN, # 30 tablet, Refills 5, Tot. Refills 5, Maintenance, Sleep, 07/30/18 20:00:00 EDT, Route to Pharmacy Electronically, [id number], [facility]/pharmacy #1026 Start Date: 07/30/18 Stop [...]
--- OUTSIDE RECORDS SUMMARY | 2022-10-15 19:33 | XMS_ITS | Continuity of Care Document ---
Author Name Unknown Organization [facility] Address [address] [place] [address]- Care Team Providers Care Clay Grinder Name Role Phone Dominik Fenton DO Primary Care Physician [place] [facility] [place] 10[place]08/19 [facility] [address] [place] [address]- [facility] Allergies, Adverse Reactions, Alerts Substance [...] 09/27/19 15:29:00 EDT, Route to Pharmacy Electronically, [facility]/pharmacy #1026, 165, cm, 03/03/19 9:23:00 EST, Height Start Date: 09/27/19 Stop Date: 06/23/20 Status: Ordered atorvastatin 80 mg oral tablet 1 tablet = 80 mg, By Mouth, Daily, # 90 tablet, 2 Refills, Maintenance, 09/08/19 18:08:00 EDT, Tablet, [facility]/pharmacy #1026, 165, cm, 03/03/19 [...] 02/05/18 22:57:38 EST, Route to Pharmacy Electronically, [id number], [facility]/pharmacy #1026 Start Date: 02/05/18 Stop Date: [...] 12/16/18 14:39:27 EST, Route to Pharmacy Electronically, [id number], [facility]/pharmacy #1026 Start Date: 12/16/18 Stop Date: 09/12/19 Status: Ordered ibuprofen 800 mg oral tablet 800 mg, 1, tablet, By Mouth, 3 times a day, PRN, # 30 tablet, Refills 2, Tot. Refills 2, Maintenance, Pain, 12/08/16 17:13:13, Route to Pharmacy Electronically, [id number], [facility]/pharmacy #1026 Start Date: 12/08/16 Status: Ordered [...] 12/16/18 14:39:20 EST, Route to Pharmacy Electronically, [id number], [facility]/pharmacy #1026 Start Date: 12/16/18 Stop Date: 06/14/19 Status: Ordered Paxil 40 mg oral tablet 60 mg, 1.5, tablet, By Mouth, Daily, # 45 tablet, Refills 5, Tot. Refills 5, Maintenance, 07/21/19 16:48:00 EDT, Route to Pharmacy Electronically, [facility]/pharmacy #1026, 165, cm, 03/03/19 9:23:00 EST, Height Start Date: 07/21/19 Status: Ordered traZODone 100 mg oral tablet 200 mg, 2, tablet, By Mouth, Daily at bedtime, # 60 tablet, Refills 5, Tot. Refills 5, Maintenance,02/05/18 22:57:41 EST, Route to Pharmacy Electronically, [id number], [facility]/pharmacy #1026 Start Date: 02/05/18 Status: Ordered traZODone 100 mg oral tablet 200 mg, 2, tablet, By Mouth, Daily at bedtime, PRN, # 30 tablet, Refills 5, Tot. Refills 5, Maintenance, Sleep, 07/30/18 20:00:00 EDT, Route to Pharmacy Electronically, [id number], [facility]/pharmacy #1026 Start Date: 07/30/18 Stop Date: [...]
--- OUTSIDE RECORDS SUMMARY | 2022-10-15 19:33 | XMS_ITS | Continuity of Care Document ---
Author Name Unknown Organization [facility] ter Address [address] [place] [id number]- Care Team Providers Care Bond Underwriter Name Role Phone Dominik Fenton DO Primary Care Physician [place] [facility] [place] - 05/27/[address] [address]- Discharge Disposition: A-D/C Home Attending Physician: Delio Garcia MD Admitting Physician: Delio Garcia MD Referring Physician: Not on Staff, Referring MD Allergies, Adverse Reactions, Alerts Substance Reaction Severity Status Vicodin Active Tylenol with Codeine #3 1 upset stomach A ctive Latex Active 1upset stoamach Immunizations Given and Recorded Vaccine Date Status Refusal Reason SARS-CoV-2 mRNA (mfdqgox-snsj-udvku) vax 03/20/21 Recorded SARS-CoV-2 (COVID-19) mRNA BNT-162b2 [...] 08/03/19 12:54:00 EDT, Route to Pharmacy Electronically, [facility]/pharmacy #1026, 165, cm, 03/03/19 9:23:00 EST, Height Start Date: 08/03/19 Stop Date: 01/30/20 Status: Ordered hydrochlorothiazide 25 mg oral tablet 1, tablet, By Mouth, Daily, # 30 tablet, Refills 2, Maintenance, 04/23/22 18:40:00 EDT, Route to Pharmacy Electronically, [facility], 165, cm, 04/13/22 13:54:00 EST, Height, 84, [...] Instructions Replace Required Details,Route to Pharmacy Electronically, [facility]/pharmacy #102... Start Date: 11/21/21 Status: Ordered Ventolin HFA 108 mcg/inh inhalation aerosol with adapter 2 puffs, Inhalation, Every 4 hours, PRN NEEDED, WHEEZE., # 18 each, 0 Refills, Maintenance, 12/24/21 16:46:00 EST, [facility], 165, cm, 10/29/21 13:38:00 EDT, Height Start [...] recent to oldest [Reference Range]: 1 2 Weight 84 kg (05/27/22 6:42 PM) Oxygen Saturation [94-100 %] 95 % (05/27/22 6:42 PM) 97 % (05/27/22 6:20 PM) Pulse Rate [55-90 bpm] 81 bpm (05/27/22 6:42 PM) 108 bpm *H* (05/27/22 6:20 PM) Blood Pressure [90-138/55-84 mm Hg] 154/ 77mm Hg *H* (05/27/22 6:42 PM) Respiratory Rate [16-30 br/min] 16 br/mi n (05/27/22 6:42 PM) 20 br/min (05/27/22 6:20 PM) Temperature [96.8-100.4 DegF] 98.2 DegF (05/27/22 6:42 PM) Mode of Delivery (Oxygen) Room air (05/27/22 6:42 PM) Blood pressure sites Arm, left (05/27/22 6:42 PM) Temperature Route Oral (05/27/22 6:42 PM) Dry Weight 84 kg (05/27/22 6:42 PM) Social History Social History Type Response Smoking Status 5-9 cigarettes (betw een 1/4 to 1/2 pack)/day in last 30 days; Interested in cessation: No entered on: 06/07/20 Sex Patient Care team information Care Team Personnel Name: Dominik Fenton DO Position: [facility] Resident Member Role: PCP Address: Address: [address] [place] [address]- Name: Samira Ortiz RN Position: [facility] ED RN W/OE and Tasks Member Role: Patient Care Provider Name: Delio Garcia MD Position: [facility] ED Medicine MD Member Role: Admitting Physician Address: Address: [address] [place] [address]- Care Team Related Persons Name: ROBBIE DAY Address: home [address] [place] [address] Name: FERMIN OSPINA Address: home [address] [address]
--- OUTSIDE RECORDS SUMMARY | 2022-10-15 19:33 | XMS_ITS | Continuity of Care Document ---
Author Name Unknown Organization [facility] Address [address] [place] [address]- Care Team Providers Care Business Systems Lead Name Role Phone Dominik Fenton DO Primary Care Physician Encounter [facility] [place] Date(s): 06/26/20 - 08/18/20 [facility] [address] [place] [address]- Attending Physician: Liz Deng DO Admitting Physician: Liz Deng DO Allergies, Adverse Reactions, Alerts Substance Reaction [...] 10:17:00 EDT, Aerosol, Route to Pharmacy Electronically, [id number], [facility]/pharmacy #[id number], 165, cm, 06/07/20 10:12:00 EDT, Height Start Date: 06/23/20 Status: Ordered amLODIPine 5 mg oral tablet 5 mg, 1, tablet, By Mouth, Daily, # 90 tablet, Refills 0, Tot. Refills 0, Maintenance, 03/31/20 15:06:00 EST, Route to Pharmacy Electronically, [facility]/pharmacy #[id number], 165, cm, 01/18/20 15:16:00 EST, Height Start Date: 03/31/20 Stop Date: 06/29/20 Status: Ordered atorvastatin 80 mg oral tablet 1 tablet = 80 mg, By Mouth, Daily, # 90 tablet, 1 Refills, Maintenance, 06/24/20 15:16:00 EDT, Tablet, [facility]/pharmacy #[id number], 165, cm, 06/07/20 10:12:00 EDT, Height Start Date: 06/24/20 Status: Ordered cloNIDine 0.1 mg oral tablet 0.5, By Mouth, Daily at bedtime, PRN, # 30 tablet, Refills 5, Tot. Refills 5, Maintenance, Sleep, 08/03/19 12:54:00 EDT, Route to Pharmacy Electronically, [facility]/pharmacy #[id number], 165, cm, 03/03/19 9:23:00 EST, Height Start Date: 08/03/19 Stop Date: 01/30/20 Status: Ordered hydrochlorothiazide 25 mg oral tablet 1, tablet, By Mouth, Daily, # 90 tablet, Refills 0, Tot. Refills 0, Maintenance, 06/20/20 9:08:00 EDT, Route to Pharmacy Electronically, [facility] 78[facility], 165, cm, 06/07/20 10:12:00 EDT, Height Start Date: 06/20/20 Status: Ordered PARoxetine 40 mg oral tablet See Instructions, TAKE 1.5 TABLETS BY MOUTH DAILY, # 45 tablet, Refills 5, Maintenance, Instructions Replace Required Details, Route to Pharmacy Electronically, [facility] 445[facility], 165, cm, 04/08/20 14:53:00 EST, Height Start [...]
--- OUTSIDE RECORDS SUMMARY | 2022-10-15 19:33 | XMS_ITS | Continuity of Care Document ---
Author Name Unknown Organization [facility] Adult [facility] Address [address] [place] [address]- Care Team Providers Care Spud Grader Name Role Phone Dominik Fenton DO Primary Care Physician Encounter [facility] Date(s): 02/24/22 - 03/26/22 [facility] [address] [place] [address]- Allergies, Adverse Reactions, Alerts Substance Reaction Severity Status Vicodin Active Tylenol with Codeine #3 1 upset stomach A ctive Latex Active 1upset stoamach Immunizations Given and Recorded Vaccine Date Status Refusal Reason SARS-CoV-2 mRNA (eidamjh-hqth-vgazs) vax 03/20/21 Recorded SARS-CoV-2 (COVID-19) mRNA BNT-162b2 [...] 08/03/19 12:54:00 EDT, Route to Pharmacy Electronically, [facility]/pharmacy #1026, 165, cm, 03/03/19 9:23:00 EST, Height Start Date: 08/03/19 Stop Date: 01/30/20 Status: Ordered hydrochlorothiazide 25 mg oral tablet 1, tablet, By Mouth, Daily, # 30 tablet, Refills 1, Tot. Refills 1, Maintenance, 02/24/22 16:42:00 EST, Route to Pharmacy Electronically, [facility]/pharmacy #1026, 165, cm, 01/23/22 20:28:00 EST, Height, 84, kg, 01/23/22 20:28:00 EST, Dry Weight Start Date: 02/24/22 Status: Ordered PARoxetine 40 mg oral tablet See Instructions, Take 1 and 1/2 tablets per day by mouth. (total dose of 60 mg daily), # 45 each, Refills 6, Tot. Refills 6, Maintenance, 11/21/21 8:44:00 EDT, Instructions Replace Required Details,Route to Pharmacy Electronically, [facility]/pharmacy #102... Start Date: 11/21/21 Status: Ordered Percocet 2.5 mg-325 mg oral tablet 2 tablet, By Mouth, Every 6 hours, PRN as needed for pain, # 8 tablet, 0 Refills, Maintenance, 02/12/22 21:04:00 EST, Tablet, [facility]/pharmacy #1026, Partial fill upon patient request if the prescriptionis for a schedule II opioid drug., 2 tablet By Mout... Start Date: 02/12/22 Status: Ordered Ventolin HFA 108 mcg/inh inhalation aerosol with adapter 2 puffs, Inhalation, Every 4 hours, PRN NEEDED, WHEEZE., # 18 each, 0 Refills, Maintenance, 12/24/21 16:46:00 EST, [facility] 92513, 165, cm, 10/29/21 13:38:00 EDT, Height Start [...] Resident Member Role: PCP Address: Address: [address] [place] [address]- Care Team Related Persons Name: ROBBIE DAY Address: home [address] [place] [address] Name: FERMIN OSPINA Address: [address] [address]
--- OUTSIDE RECORDS SUMMARY | 2022-10-15 19:33 | XMS_ITS | Continuity of Care Document ---
Author Name Unknown Organization [facility] Adult [facility] Address [address] [place] [address]- Care Team Providers Care Implementation Coordinator Name Role Phone Dominik Fenton DO Primary Care Physician Encounter [facility] Date(s): 02/10/22 - 03/12/22 [facility] [address] [place], [place] [address] Allergies, Adverse Reactions, Alerts Substance Reaction Severity Status Vicodin Active Tylenol with Codeine #3 1 upset stomach A ctive Latex Active 1upset stoamach Immunizations Given and Recorded Vaccine Date Status Refusal Reason SARS-CoV-2 mRNA (uskckhc-ydrb-zvxye) vax 03/20/21 Recorded SARS-CoV-2 (COVID-19) mRNA BNT-162b2 vac 02/27/21 Recorded tetanus/diphtheria/pertussis, acel(Tdap) 07/03/16 Given Medications amLODIPine 5 mg oral tablet 1 tablet, By Mouth, Daily, # 30 tablet, 2 Refills, Maintenance, 12/24/21 12:39:00 EST, [facility], 165, cm, 10/29/21 13:38:00 EDT, Height Start Date: 12/24/21 Status: Ordered atorvastatin 80 mg oral tablet 1 tablet, By Mouth, Daily, # 90 tablet, 1 Refills, 10/30/21 6:19:00 EDT, [facility]/pharmacy #1026, 165, cm, 10/29/21 13:38:00 EDT, Height Start Date: 10/30/21 Status: Ordered cloNIDine 0.1 mg oral tablet 0.5, By Mouth, Daily at bedtime, PRN, # 30 tablet, Refills 5, Tot. Refills 5, Maintenance, Sleep, 08/03/19 12:54:00 EDT, Route to Pharmacy Electronically, [facility]/pharmacy #1026, 165, cm, 03/03/19 9:23:00 EST, Height Start Date: 08/03/19 Stop Date: 01/30/20 Status: Ordered hydrochlorothiazide 25 mg oral tablet 1, tablet, By Mouth, Daily, # 30 tablet, Refills 1, Tot. Refills 1, Maintenance, 02/24/22 16:42:00 EST, Route to Pharmacy Electronically, [facility]/pharmacy #1026, 165, cm, 01/23/22 20:28:00 EST, Height, 84, kg, 01/23/22 20:28:00 EST, Dry Weight Start Date: 02/24/22 Status: Ordered PARoxetine 40 mg oral tablet See Instructions, Take 1 and 1/2 tablets per day by mouth. (total dose of 60 mg daily), # 45 each, Refills 6, Tot. Refills 6, Maintenance, 11/21/21 8:44:00 EDT, Instructions Replace Required Details,[facility] Start Date: 11/21/21 Status: Ordered Percocet 2.5 mg-325 mg oral tablet 2 tablet, By Mouth, Every 6 hours, PRN as needed for pain, # 8 tablet, 0 Refills, Maintenance, 02/12/22 21:04:00 EST, Tablet, [facility]/pharmacy #1026, Partial fill upon patient request if the prescriptionis for a schedule II opioid drug., 2 tablet By Mout... Start Date: 02/12/22 Status: Ordered Ventolin HFA 108 mcg/inh inhalation aerosol with adapter 2 puffs, Inhalation, Every 4 hours, PRN NEEDED, WHEEZE., # 18 each, 0 Refills, Maintenance, 12/24/21 16:46:00 EST, [facility] STORE 27165, 165, cm, 10/29/21 13:38:00 EDT, Height Start [...] Member Role: PCP Address: Address: [address] [place] [address]- Care Team Related Persons Name: ROBBIE DAY Address: home [address] [place] [address] Name: FERMIN OSPINA Address: [address] [address]
--- OUTSIDE RECORDS SUMMARY | 2022-10-15 19:33 | XMS_ITS | Continuity of Care Document ---
Author Name Unknown Organization [facility] Address [address] [place] [address]- Care Team Providers Care Manager Personal Name Role Phone Dominik Fenton DO Primary Care Physician [phone] Encounter [facility] [place] Date(s): 04/10/22 - 05/10/22 [facility] [address] [place] [address]- Allergies, Adverse Reactions, Alerts Substance Reaction Severity Status Vicodin Active Tylenol with Codeine #3 1 upset stomach A ctive Latex Active 1upset stoamach Immunizations Given and Recorded Vaccine Date Status Refusal Reason SARS-CoV-2 mRNA (hoziojx-eofk-knfzj) vax 03/20/21 Recorded SARS-CoV-2 (COVID-19) mRNA BNT-162b2 [...] EDT, Height Start Date: 10/30/21 Status: Ordered cefdinir 300 mg oral capsule 1 capsule = 300 mg, By Mouth, Every 12 hours, for 10 days, # 20 capsule, 0 Refills, Acute 05/11/22 15:39:00 EDT, 05/01/22 15:39:00 EDT, Capsule, [facility]/pharmacy #1026, Partial fill upon patient request if the prescription is for a schedule II opioid drug... Start Date: 05/01/22 Stop Date: 05/11/22 Status: Ordered cloNIDine 0.1 mg oral tablet 0.5, By Mouth, Daily at bedtime, PRN, # 30 tablet, Refills 5, Tot. Refills 5, Maintenance, Sleep, 08/03/19 12:54:00 EDT, Route to Pharmacy Electronically, [facility]/pharmacy #1026, 165, cm, 03/03/19 9:23:00 EST, Height Start Date: 08/03/19 Stop Date: 01/30/20 Status: Ordered hydrochlorothiazide 25 mg oral tablet 1, tablet, By Mouth, Daily, # 30 tablet, Refills 2, Maintenance, 04/23/22 18:40:00 EDT, Route to Pharmacy Electronically, [facility], 165, cm, 04/13/22 13:54:00 EST, Height, 84, kg, 01/23/22 20:28:00 EST, Dry Weight Start Date: 04/23/22 Status: Ordered PARoxetine 40 mg oral tablet See Instructions, Take 1 and 1/2 tablets per day by mouth. (total dose of 60 mg daily), # 45 each, Refills 6, Tot. Refills 6, Maintenance, 11/21/21 8:44:00 EDT, Instructions Replace Required Details,Route to Pharmacy Electronically, [facility]/pharmacy #102... Start Date: 11/21/21 Status: Ordered Ventolin HFA 108 mcg/inh inhalation aerosol with adapter 2 puffs, Inhalation, Every 4 hours, PRN NEEDED, WHEEZE., # 18 each, 0 Refills, Maintenance, 12/24/21 16:46:00 EST, [facility] 20134, 165, cm, 10/29/21 13:38:00 EDT, Height Start [...] Member Role: PCP Address: Address: [address] [place] [address]- Care Team Related Persons Name: ROBIBE DAY Address: home [address] [place] [address] Name: FERMIN OSPINA Address: [address] [address]
--- OUTSIDE RECORDS SUMMARY | 2022-10-15 19:33 | XMS_ITS | Continuity of Care Document ---
Author Name Unknown Organization [facility] ter Address [address] [place] [address]- Care Team Providers Care Water Softener Service Supervisor Name Role Phone Dominik Fenton DO Primary Care Physician [place] [facility] [place] 02/21/20 - 02/21/[address] [address]- Discharge Disposition: A-D/C Walkout Attending Physician: Not [...] 09/27/19 15:29:00 EDT, Route to [facility]ically, [facility], [...] 02/05/18 22:57:38 EST, Route to Pharmacy Electronically, [id number], [facility]/pharmacy #1026 Start Date: 02/05/18 Stop Date: 08/04/18 Status: Ordered cloNIDine 0.1 mg oral tablet 0.5, By Mouth, Daily at bedtime, PRN, # 30 tablet, Refills 5, Tot. Refills 5, Maintenance, Sleep, 08/03/19 12:54:00 EDT, Route to Pharmacy Electronically, [facility]/pharmacy #1026, 165, cm, 03/03/19 9:23:00 EST, Height Start Date: 08/03/19 Stop Date: 01/30/20 Status: Ordered hydrochlorothiazide 25 mg oral tablet 25 mg, 1, tablet, By Mouth, Daily, # 90 tablet, Refills 1, Tot. Refills 1, Maintenance, 11/01/19 14:15:00 EDT, Route to Pharmacy Electronically, [facility]/pharmacy #1026, 165, cm, 03/03/19 9:23:00 EST, Height Start Date: 11/01/19 Stop Date: 04/29/20 Status: Ordered ibuprofen 800 mg oral tablet 800 mg, 1, tablet, By Mouth, 3 times a day, PRN, # 30 tablet, Refills 2, Tot. Refills 2, Maintenance, Pain, 12/08/16 17:13:13, Route to Pharmacy Electronically, [id number], [facility]/pharmacy #1026 Start Date: 12/08/16 Status: [...] 12/16/18 14:39:20 EST, Route to Pharmacy Electronically, [id number], [facility]/pharmacy #1026 Start Date: 12/16/18 Stop Date: 06/14/19 Status: Ordered Paxil 40 mg oral tablet 60 mg, 1.5, tablet, By Mouth, Daily, # 45 tablet, Refills 5, Tot. Refills 5, Maintenance, 07/21/19 16:48:00 EDT, Route to Pharmacy Electronically, [facility]/pharmacy #1026, 165, cm, 03/03/19 9:23:00 EST, Height Start Date: 07/21/19 Status: Ordered traZODone 100 mg oral tablet 200 mg, 2, tablet, By Mouth, Daily at bedtime, # 60 tablet, Refills 5, Tot. Refills 5, Maintenance,02/05/18 22:57:41 EST, Route to Pharmacy Electronically, [id number], [facility]/pharmacy #1026 Start Date: 02/05/18 Status: Ordered traZODone 100 mg oral tablet 200 mg, 2, tablet, By Mouth, Daily at bedtime, PRN, # 30 tablet, Refills 5, Tot. Refills 5, Maintenance, Sleep, 07/30/18 20:00:00 EDT, Route to Pharmacy Electronically, [id number], [facility]/pharmacy #1026 Start Date: 07/30/18 Stop [...] recent to oldest [Reference Range]: 1 2 Oxygen Saturation [94-100 %] 96 % (02/21/20 9:16 PM) 95 % (02/21/20 9:03 PM) Pulse Rate [55-90 bpm] 68 bpm (02/21/20 9:16 PM) 95 bpm *H* (02/21/20 9:03 PM) Blood Pressure [90-138/55-84 mm Hg] 147/ 81mm Hg *H* (02/21/20 9:16 PM) Respiratory Rate [16-30 br/min] 16 br/mi n (02/21/20 9:16 PM) Temperature [96.8-100.4 DegF] 98 DegF (02/21/20 9:16 PM) Mode of Delivery (Oxygen) Room air (02/21/20 9:16 PM) Room air (02/21/20 9:03 PM) Blood pressure sites Arm, right (02/21/20 9:16 PM) Temperature Route Oral (02/21/20 9:16 PM) Social History Social History Type Response Smoking Status Current every day sm oker; Other: 0.5 to one pack of cigarettes per day; entered on: 10/04/14 Sex
--- OUTSIDE RECORDS SUMMARY | 2022-10-15 19:34 | XMS_ITS | Continuity of Care Document ---
Author Name Unknown Organization [facility] ter Address [address] [place] [address]- Care Team Providers Care Shipping Assistant Name Role Phone Dominik Fenton DO Primary Care Physician [place] [facility] [place] Date(s): 11/18/21 - 01/01/[address] [address] Attending Physician: Rachel Caceres MD Admitting Physician: Rachel Caceres MD Referring Physician: Zeina Malone MD Allergies, Adverse Reactions, Alerts Substance Reaction Severity Status Vicodin Active Tylenol with Codeine #3 1 upset stomach A ctive Latex Active 1upset stoamach Immunizations Given and Recorded Vaccine Date Status Refusal Reason SARS-CoV-2 mRNA (behbrau-tcfl-uqpfb) vax 03/20/21 Recorded SARS-CoV-2 (COVID-19) mRNA BNT-162b2 vac 02/27/21 Recorded tetanus/diphtheria/pertussis, acel(Tdap) 07/03/16 Given Medications amLODIPine 5 mg oral tablet 1 tablet, By Mouth, Daily, # 30 tablet, 2 Refills, Maintenance, 12/24/21 12:39:00 EST, [facility], 165, cm, 10/29/21 13:38:00 EDT, Height Start Date: 12/24/21 Status: Ordered atorvastatin 80 mg oral tablet 1 tablet, By Mouth, Daily, # 90 tablet, 1 Refills, 10/30/21 6:19:00 EDT, [facility]/pharmacy #1026, 165, cm, 10/29/21 13:38:00 EDT, Height Start Date: 10/30/21 Status: Ordered cloNIDine 0.1 mg oral tablet 0.5, By Mouth, Daily at bedtime, PRN, # 30 tablet, Refills 5, Tot. Refills 5, Maintenance, Sleep, 08/03/19 12:54:00 EDT, Route to Pharmacy Electronically, [facility]/pharmacy #1026, 165, cm, 03/03/19 9:23:00 EST, Height Start Date: 08/03/19 Stop Date: 01/30/20 Status: Ordered hydrochlorothiazide 25 mg oral tablet 1, tablet, By Mouth, Daily, # 30 tablet, Refills 2, Maintenance, 10/28/21 8:22:00 EDT, Route to Pharmacy Electronically, [facility] 03085, 165, cm, 09/27/20 14:32:00 EDT, Height Start Date: 10/28/21 Status: Ordered PARoxetine 40 mg oral tablet See Instructions, Take 1 and 1/2 tablets per day by mouth. (total dose of 60 mg daily), # 45 each, Refills 6, Tot. Refills 6, Maintenance, 11/21/21 8:44:00 EDT, Instructions Replace Required Details,Route to Pharmacy Electronically, [facility]/pharmacy #102... Start Date: 11/21/21 Status: Ordered Ventolin HFA 108 mcg/inh inhalation aerosol with adapter 2 puffs, Inhalation, Every 4 hours, PRN NEEDED, WHEEZE., # 18 each, 0 Refills, Maintenance, 12/24/21 16:46:00 EST, [facility] 88095, 165, cm, 10/29/21 13:38:00 EDT, Height Start [...] Active Tobacco use Confirmed Active 1repeat PAP /15 2tear on MRI - ordered ?by Ortho [...] Team Personnel Name: Dominik Fenton DO Position: [facility] Resident Member Role: PCP Address: Address: [address] [place] [address]- Care Team Related Persons Name: ROBBIE DAY Address: home [address] [place] [address] Name: FERMIN OSPINA Address: [address] [address]
--- OUTSIDE RECORDS SUMMARY | 2022-10-15 19:34 | XMS_ITS | Continuity of Care Document ---
Author Name Unknown Organization [facility] Address [address] [place] [address]- Care Team Providers Care Brush Holder Assembler Name Role Phone Alvarado Sun DO Primary Care Physician Encounter [facility] [place] Date(s): 08/21/22 - 09/20/22 [facility] [address] [place], [place] [address] Allergies, Adverse Reactions, Alerts Substance Reaction Severity Status Vicodin Active Tylenol with Codeine #3 1 upset stomach A ctive Latex Active 1upset stoamach Immunizations Given and Recorded Vaccine Date Status Refusal Reason SARS-CoV-2 mRNA (eluzinq-kkpw-yhaaw) vax 03/20/21 Recorded SARS-CoV-2 (COVID-19) mRNA BNT-162b2 [...] EDT, Route to Pharmacy Electronically, [facility]/pharmacy #1026, 165, cm, 03/03/19 9:23:00 EST, Height Start Date: 08/03/19 Stop Date: 01/30/20 Status: Ordered hydrochlorothiazide 25 mg oral tablet 1, tablet, By Mouth, Daily, # 30 tablet, Refills 2, Tot. Refills 2, Maintenance, 07/27/22 13:09:00 EDT, Route to Pharmacy Electronically, [facility]/pharmacy #1026, 165, cm, 06/16/22 14:09:00 EDT, Height, 84, kg, 05/27/22 18:42:00 EDT, Dry Weight Start Date: 07/27/22 Status: Ordered naproxen 500 mg (as sodium) oral tablet, extended release 1 to 2 tablet, By Mouth, Daily, PRN as needed for arthritis, # 20 each, 0 Refills, Maintenance, 05/27/22 19:56:00 EDT, ER Tablet, [facility]/pharmacy #1026, Partial fill upon patient request if the prescription is for a schedule II opioid drug., 165, cm, ... Start Date: 05/27/22 Status: Ordered PARoxetine 40 mg oral tablet 1.5, tablet, By Mouth, Daily, (TOTAL DOSE OF 60 MG DAILY), # 45 tablet, Refills 6, Maintenance, 06/19/22 11:47:00 EDT, Route to Pharmacy Electronically, [facility] 580[facility], 165, cm, 06/16/22 14:09:00 EDT, Height, 84, kg, 05/27/22 18:42:00 EDT, Dry Weight Start Date: 06/19/22 Status: Ordered Ventolin HFA 108 mcg/inh inhalation aerosol with adapter 2 puffs, Inhalation, Every 4 hours, PRN NEEDED, WHEEZE., # 18 each, 0 Refills, Maintenance, 12/24/21 16:46:00 EST, [facility] 48841, 165, cm, 10/29/21 13:38:00 EDT, Height Start [...] Team Personnel Name: Alvarado Sun DO Position: [facility] Resident Member Role: PCP Address: Address: [address] [facility] [facility] [place] [address]- Care Team Related Persons Name: ROBBIE DAY Address: home [address] [place] [address] Name: FERMIN OSPINA Address: home [address] [address]
--- OUTSIDE RECORDS SUMMARY | 2022-10-15 19:34 | XMS_ITS | Continuity of Care Document ---
Author Name Unknown Organization [facility] Adult [facility] Address [address] [place] [address]- Care Team Providers Care Flask Maker Name Role Phone Dominik Fenton DO Primary Care Physician [phone] Encounter [facility] [place] Date(s): 02/10/22 - 03/14/22 [facility] [address] [place] [address]- Attending Physician: Kevan Garcia MD Admitting Physician: Kevan Garcia MD Allergies, Adverse Reactions, Alerts Substance Reaction Severity Status Vicodin Active Tylenol with Codeine #3 1 upset stomach A ctive Latex Active 1upset stoamach Immunizations Given and Recorded Vaccine Date Status Refusal Reason SARS-CoV-2 mRNA (wvblgpj-lqgc-rnerf) vax 03/20/21 Recorded SARS-CoV-2 (COVID-19) mRNA BNT-162b2 vac 02/27/21 Recorded tetanus/diphtheria/pertussis, acel(Tdap) 07/03/16 Given Medications amLODIPine 5 mg oral tablet 1 tablet, By Mouth, Daily, # 30 tablet, 2 Refills, Maintenance, 12/24/21 12:39:00 EST, [facility] ST[facility] 35146, 165, cm, 10/29/21 13:38:00 EDT, Height Start Date: 12/24/21 Status: Ordered atorvastatin 80 mg oral tablet 1 tablet, By Mouth, Daily, # 90 tablet, 1 Refills, 10/30/21 6:19:00 EDT, [facility]/pharmacy #1026, 165, cm, 10/29/21 13:38:00 EDT, Height Start Date: 10/30/21 Status: Ordered cloNIDine 0.1 mg oral tablet 0.5, By Mouth, Daily at bedtime, PRN, # 30 tablet, Refills 5, Tot. Refills 5, Maintenance, Sleep, 08/03/19 12:54:00 EDT, Route to Pharmacy Electronically, [facility]/pharmacy #1026, 165, cm, 03/03/19 9:23:00 EST, Height Start Date: 08/03/19 Stop Date: 01/30/20 Status: Ordered hydrochlorothiazide 25 mg oral tablet 1, tablet, By Mouth, Daily, # 30 tablet, Refills 1, Tot. Refills 1, Maintenance, 02/24/22 16:42:00 EST, Route to Pharmacy Electronically, [facility]/pharmacy #1026, 165, cm, 01/23/22 20:28:00 EST, Height, 84, kg, 01/23/22 20:28:00 EST, Dry Weight Start Date: 02/24/22 Status: Ordered PARoxetine 40 mg oral tablet See Instructions, Take 1 and 1/2 tablets per day by mouth. (total dose of 60 mg daily), # 45 each, Refills 6, Tot. Refills 6, Maintenance, 11/21/21 8:44:00 EDT, Instructions Replace Required Details,Route to Pharmacy Electronically, [facility]/pharmacy #102... Start Date: 11/21/21 Status: Ordered Percocet 2.5 mg-325 mg oral tablet 2 tablet, By Mouth, Every 6 hours, PRN as needed for pain, # 8 tablet, 0 Refills, Maintenance, 02/12/22 21:04:00 EST, Tablet, [facility]/pharmacy #1026, Partial fill upon patient request if the prescriptionis for a schedule II opioid drug., 2 tablet By Mout... Start Date: 02/12/22 Status: Ordered Ventolin HFA 108 mcg/inh inhalation aerosol with adapter 2 puffs, Inhalation, Every 4 hours, PRN NEEDED, WHEEZE., # 18 each, 0 Refills, Maintenance, 12/24/21 16:46:00 EST, [facility] [address]118, 165, cm, 10/29/21 13:38:00 EDT, Height Start [...] Role: PCP Address: Address: [address] [place] [address]- Care Team Related Persons Name: ROBBIE DAY Address: [address] [place] [address] Name: FERMIN OSPINA Address: [address] [address]
--- OUTSIDE RECORDS SUMMARY | 2022-10-15 19:34 | XMS_ITS | Patient Health Record ---
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 in foods such as ham, benito, deli meats, cheeses and snack foods. Take your medicine regularly. Get 30 minutes of active exercise that raises your pulse rate most days of the week. Avoid more than two 8oz cups of coffee per day. Manage your stress level so that you are not feeling overwhelmed. Return to provider regularly for periodic exam. Return before your appointment if you experience any symptoms that are of concern to you. Go to the emergency room for acute chest pain, shortness of breath or difficulty with speech/mentation or ambulation, Discussed risks of untreated HTN including stroke, KS, heart failure, renal failure and , adivsed pt to return for BP follow up and to be consistent in taking medications. Pt aware will f/u with PCP aware she will probably need another anthypertensive agent, advised to stop smoking. HTN REpeat BP monmitorin g, going to [address] regularly HTN Will continue to teresa ck BP q day. Will give list to client when she sees PCP again., Client agrees with plan, allowed to clarify questions about plan. Tobacco use disorder Pt. thinking about cutting down / now at 1/2 ppd. MENTAL DISOR NEC OTH DIS Denies SI/HI; s een by rKistina Armando APRN earlier today; F/U as scheduled w/therapist and provider. Open wound of breast without complication Consulted with Fermin. No need to pack with Iodoform gauze. Apply Bacitricin ointment, cover with bandaid and call Dr Hope this pm. Ok with plan. Alcohol abuse, episodic Pt. will try to cut down on her drinking slowly between now and surgery. Open wound of breast without complication Change dressing as directed daily. See us as needed. Reschedule mammogram if not healed. Ok with plan. Laceratation: hand, complicated Client h and remains red ,swollen with small amount of drainage noted. Client soak finger in warm water with salt and H2O2. Client finger was then dressed with antibiotic ointment dsg with splint. Client received supplies and told to soak finger BID apply dressing. Client told to continue with Augmentin. Client told to take med with food and told to finish meds. Client told the importance of meds with regards to how dirty a human bite can be. Laceratation: hand, complicated Discusse d the danger of a human bite. Pt to keep area clean and dry. TAke medication as ordered until it is gone. FU if any increase in swelling, redness or pain. , Understands plan. Allowed to clarify questions about plan. Vaginitis and vulvovaginitis , unspecified BV, + whiff test, pH paper 6.5, + clue cells. Given handout on BV, Discussed risks and benefits of new medication; patient gives informed consent to proceed with prescribed treatment. May take with food, aware of interaction with alcohol, avoid alcohol while on medication. Refrain from sexual activity until therapy completed and irritation resolved. RTC with any problems. Hypertension Abnormal BP--has not F/U with PCP--on HCTZ only. Gave copy of latest BPs to pt to take to PCC. Menstrual Cramps Client c/o hot flash es, night sweats and a very heavy menstrual cycle this month. day 4 and still heavy flow.C/O body aches and fatigue. ? low iron , Client to see LACE STRIPPER next week. Client to have blood work done for appt. Client has not done labs. Discuss the importance of labs before appt ,agreed to go in am. Client to also have HIV test in am. Client told to take Motrin for body aches and cramps , push fluids, rest. If SX increase to go to ER., Understands plan. Allowed to clarify questions about plan. HTN Client instructed to take med now. Decrease salt intake. Client agrees with plan, allowed to clarify questions about plan. Blurred vision NOS pt encouraged to go to the ER as her vsion is a concern since it is new since the injury. Explained that pt needs to see opth. SIMONE and the only way to do that is to go to the ER. pt called PCC who cannot see her until . She can call in the AM to see if they can fit her in. pt again encouraged to go to the ER due to the potential seriousness of her condition , Understands plan. Allowed to clarify questions about plan. Tobacco use disorder Counseled regarding tobacco use. Not ready to quit smoking. Urged to consider. Offered assistance when ready to quit smoking. pt will think about quitting smoking and RTC if and when she is ready to quit. Agrees to at least think about delaying smoking each time she wants a cigarette high risk sexual behavior Counseled abou t ETOH use when upset-->poor judgement. see Trichomonas Earache NOS Called Dr. Young ENT [phone] to see if pt could be seen there due to desire to go to ER. L.M. with our # and Rosaura's phone #. Open wound of breast without complication Wound irrigated with saline. Iodoform packing inserted with dsd. Call Dr Hope today and see when you need to be seen for follow up. Ok with plan. HTN Just took medication prior to coming in to clinic encouraged to take daily in am and have BP monitored. Tobacco use disorder Pre-Contemplation:C ounseled 5 minutes regarding tobacco use. Not ready to quit smoking. Urged to consider. Offered assistance when ready to quit smoking. Yeast infection Discussed tx with pt , medication called in to [facility] pt to bean picker after she sees Dr Hope., Discussed risks and benefits of new medication; patient gives informed consent to proceed with prescribed treatment. If sx do not resolve RTC. Pt agrees. Rash Given supply of hydr ocortisone cream 1% to apply to rash TID, stop shaving area, wash hands frequently and refrainn from scratching area. If sx do not improve RTC., Understands plan. Allowed to clarify questions about plan. Open wound of breast without complication Wound irrigated with normal saline. Xeroform dsg to wound cavity followed by dsd. Return tomorrow. Ok with plan. TB (diagnostic screening) Return in 2-3 days to check PPD test.agrees, Understands plan. Allowed to clarify questions about plan. Pending Tests Test Name Order Date X ray : Ankle, left 2013-09-26 HIV 2013-07-20 GC, DNA Urine - [facility] 2013-07-20 Chlamydia, DNA Urine - [facility] Hep A Ab (IgG) - [facility] 2013-07-20 Hep B Surface Antibody (anti-HBs IgG) 20 23-07-11 Hep B Surface Antigen (HBsAg) 2013-07-20 Hep B Core Antibody (anti-HBc IgG) 07-20 Hep C Antibody - [facility] 2013-07-20 Treponemal AB with reflex to RPR 2013-07 Urinalysis IH 2013-07-17 Wet [place], Vaginal 2013-07-17 Future Test Test Name Order Date HIV [id number] Hep C Antibody - [facility] [id number] Hep B Surface Antigen (HBsAg) [id number] Hep B Surface Antibody (anti-HBs IgG) 20 [id number] Hep B Core Antibody (anti-HBc IgG) [id number] HIV [id number] HIV [id number] Referrals Referral Date Details Management Case Application Housing Pickup Mail Management Case Counseling Supportiv e Client change her he alth insurance to [facility] healthnet, Enrollment Assist [facility] Provider give taxi voucher to return to halfway from surgery + 1 token, [facility] provided for appt, Service Transportation verify appt , give 2 tokens, Bus Tokens [facility] Insurance Providers Payer Name Payer Address Payer Phone Insured Name Patient Relationship to Insured Coverage Start Date Coverage End Date Subscriber Number Group Number [facility] [employer] [address] [facility] [id number] Keagan,She lly Self - patient is the insured [id number]
--- OUTSIDE RECORDS SUMMARY | 2022-10-15 19:34 | XMS_ITS | Continuity of Care Document ---
Author Name Unknown Organization [facility] ter Address [address] [place] [id number]- Care Team Providers Care Flaring Machine Operator Name Role Phone Dominik Fenton DO Primary Care Physician Encounter [facility] [place] Date(s): 02/22/20 - 02/23/[address] [address]- Discharge Disposition: A-D/C Home Attending Physician: Mina Martins MD Admitting Physician: Mina Martins MD Referring Physician: Not on Staff, Referring [...] 02/05/18 22:57:38 EST, Route to Pharmacy Electronically, [id number], [facility]/pharmacy #[id number] Start Date: 02/05/18 Stop Date: 08/04/18 Status: Ordered cloNIDine 0.1 mg oral tablet 0.5, By Mouth, Daily at bedtime, PRN, # 30 tablet, Refills 5, Tot. Refills 5, Maintenance, Sleep, 08/03/19 12:54:00 EDT, Route to Pharmacy Electronically, [facility]/pharmacy #[id number], 165, cm, 03/03/19 9:23:00 EST, Height Start Date: 08/03/19 Stop Date: 01/30/20 Status: Ordered hydrochlorothiazide 25 mg oral tablet 25 mg, 1, tablet, By Mouth, Daily, # 90 tablet, Refills 1, Tot. Refills 1, Maintenance, 11/01/19 14:15:00 EDT, Route to Pharmacy Electronically, [facility]/pharmacy #[id number], 165, cm, 03/03/19 9:23:00 EST, Height Start Date: 11/01/19 Stop Date: 04/29/20 Status: Ordered ibuprofen 800 mg oral tablet 800 mg, 1, tablet, By Mouth, 3 times a day, PRN, # 30 tablet, Refills 2, Tot. Refills 2, Maintenance, Pain, 12/08/16 17:13:13, Route to Pharmacy Electronically, [id number], [facility]/pharmacy #1026 Start Date: 12/08/16 Status: [...] 12/16/18 14:39:20 EST, Route to Pharmacy Electronically, [id number], [facility]/pharmacy #[id number] Start Date: 12/16/18 Stop Date: 06/14/19 Status: Ordered Paxil 40 mg oral tablet 60 mg, 1.5, tablet, By Mouth, Daily, # 45 tablet, Refills 5, Tot. Refills 5, Maintenance, 07/21/19 16:48:00 EDT, Route to Pharmacy Electronically, [facility]/pharmacy #[id number], 165, cm, 03/03/19 9:23:00 EST, Height Start Date: 07/21/19 Status: Ordered traZODone 100 mg oral tablet 200 mg, 2, tablet, By Mouth, Daily at bedtime, # 60 tablet, Refills 5, Tot. Refills 5, Maintenance,02/05/18 22:57:41 EST, Route to Pharmacy Electronically, [id number], [facility]/pharmacy #1026 Start Date: 02/05/18 Status: Ordered traZODone 100 mg oral tablet 200 mg, 2, tablet, By Mouth, Daily at bedtime, PRN, # 30 tablet, Refills 5, Tot. Refills 5, Maintenance, Sleep, 07/30/18 20:00:00 EDT, Route to Pharmacy Electronically, [id number], [facility]/pharmacy #1026 Start Date: 07/30/18 Stop [...] 1 2 3 Oxygen Saturation [94-100 %] 97 % (02/22/20 11:17 PM) 96 % (02/22/20 8:37 PM) 96 % (02/22/20 6:04 PM) Pulse Rate [55-90 bpm] 67 bpm (02/22/20 11:17 PM) 63 bpm (02/22/20 8:37 PM) 72 bpm (02/22/20 6:04 PM) Blood Pressure [90-138/55-84 mm Hg] 163/92mm Hg *H* (02/22/20 11:17 PM) 133/63mm Hg (02/22/20 8:37 PM) 121/71mm Hg (02/22/20 6:04 PM) Respiratory Rate [16-30 br/min] 20 br/min (02/22/20 11:17 PM) 16 br/min (02/22/20 8:37 PM) 20 br/min (02/22/20 6:04 PM) Temperature [96.8-100.4 DegF] 98.0 DegF (02/22/20 6:04 PM) Mode of Delivery (Oxygen) Room air (02/22/20 11:17 PM) Room air (02/22/20 8:37 PM) Room air (02/22/20 6:04 PM) Blood pressure sites Arm, right (02/22/20 11:17 PM) Arm, right (02/22/20 8:37 PM) Arm, right (02/22/20 6:04 PM) Temperature Route Oral (02/22/20 6:04 PM) Social History Social History Type Response Smoking Status Current every day sm oker; Other: 0.5 to one pack of cigarettes per day; entered on: 10/04/14 Sex
--- OUTSIDE RECORDS SUMMARY | 2022-10-15 19:34 | XMS_ITS | Continuity of Care Document ---
Author Name Unknown Organization [facility] Address [address] [place] [address]- Care Team Providers Care Supervisor Hard Candy Name Role Phone Dominik Fenton DO Primary Care Physician [phone] Encounter [facility] [place] Date(s): 03/28/20 - 04/27/20 [facility] [address] [place] [address]- Allergies, Adverse Reactions, Alerts Substance Reaction Severity [...] 03/31/20 15:06:00 EST, Route to Pharmacy Electronically, [facility]/pharmacy #[id number], 165, cm, 01/18/20 15:16:00 EST, Height Start Date: 03/31/20 Stop Date: 06/29/20 Status: Ordered atorvastatin 80 mg oral tablet 1 tablet = 80 mg, By Mouth, Daily, # 90 tablet, 2 Refills, Maintenance, 09/08/19 18:08:00 EDT, Tablet, [facility]/pharmacy #[id number], 165, cm, 03/03/19 9:23:00 EST, Height Start Date: 09/08/19 Status: Ordered cloNIDine 0.1 mg oral tablet 0.5, By Mouth, Daily at bedtime, PRN, # 30 tablet, Refills 5, Tot. Refills 5, Maintenance, Sleep, 08/03/19 12:54:00 EDT, Route to Pharmacy Electronically, [facility]/pharmacy #1026, 165, cm, 03/03/19 9:23:00 EST, Height Start Date: 08/03/19 Stop Date: 01/30/20 Status: Ordered hydrochlorothiazide 25 mg oral tablet 25 mg, 1, tablet, By Mouth, Daily, # 90 tablet, Refills 0, Tot. Refills 0, Maintenance, 04/29/20 14:15:00 EDT, Route to Pharmacy Electronically, [facility]/pharmacy #1026, 165, cm, 01/18/20 15:16:00 EST, Height Start Date: 04/29/20 Stop Date: 07/28/20 Status: Ordered nicotine 14 mg/24 hr transdermal film, extended release 1 patch, Topically, Daily, # 30 patch, 1 Refills, Maintenance, 04/08/20 15:55:00 EST, Patch, [facility]/pharmacy #1026, Partial fill upon patient request if the prescription is for a schedule II opioid drug., 1 patch Topically Daily, 165, cm, 04/08/20 14:53:... Start Date: 04/08/20 Status: Ordered Nicotine 2 mg gum 1 each = 2 mg, Chew, Every 2 hours, PRN as needed for smoking cessation, # 160 each, 6 Refills, Maintenance, 04/08/20 15:55:00 EST, Gum, [facility]/pharmacy #1026, Partial fill upon patient request if the prescription is for a schedule II opioid drug., 165,... Start Date: 04/08/20 Status: Ordered PARoxetine 40 mg oral tablet 1.5, tablet, By Mouth, Daily, # 45 tablet, Refills 0, Tot. Refills 0, Maintenance, 04/24/20 8:43:00EDT, Route to Pharmacy Electronically, [id number], 165, cm, 04/08/20 14:53:00 EST, Height Start [...]
--- OUTSIDE RECORDS SUMMARY | 2022-10-15 19:34 | XMS_ITS | Continuity of Care Document ---
Author Name Unknown Organization [facility] Address [address] [place] [address]- Care Team Providers Care Engrosser Name Role Phone Dominik Fenton DO Primary Care Physician [phone] Encounter [facility] [place] Date(s): 11/01/19 - 12/01/19 [facility] [address] [place] [id number]- Allergies, Adverse Reactions, Alerts Substance Reaction Severity [...] 09/27/19 15:29:00 EDT, Route to Pharmacy Electronically, [facility]/pharmacy [...] 02/05/18 22:57:38 EST, Route to Pharmacy Electronically, [id number], [facility]/pharmacy #1026 Start Date: 02/05/18 Stop Date: 08/04/18 Status: Ordered cloNIDine 0.1 mg oral tablet 0.5, By Mouth, Daily at bedtime, PRN, # 30 tablet, Refills 5, Tot. Refills 5, Maintenance, Sleep, 08/03/19 12:54:00 EDT, [facility], cm, 03/03/19 9:23:00 EST, Height Start Date: 08/03/19 Stop Date: 01/30/20 Status: Ordered hydrochlorothiazide 25 mg oral tablet 25 mg, 1, tablet, By Mouth, Daily, # 90 tablet, Refills 1, Tot. Refills 1, Maintenance, 11/01/19 14:15:00 EDT, Route to Pharmacy Electronically, [facility]/pharmacy #1026, 165, cm, 03/03/19 9:23:00 EST, Height Start Date: 11/01/19 Stop Date: 04/29/20 Status: Ordered ibuprofen 800 mg oral tablet 800 mg, 1, tablet, By Mouth, 3 times a day, PRN, # 30 tablet, Refills 2, Tot. Refills 2, Maintenance, Pain, 12/08/16 17:13:13, Route to Pharmacy Electronically, [id number], [facility]/pharmacy #1026 Start Date: 12/08/16 Status: Ordered [...] 12/16/18 14:39:20 EST, Route to Pharmacy Electronically, [id number], [facility]/pharmacy #1026 Start Date: 12/16/18 Stop Date: 06/14/19 Status: Ordered Paxil 40 mg oral tablet 60 mg, 1.5, tablet, By Mouth, Daily, # 45 tablet, Refills 5, Tot. Refills 5, Maintenance, 07/21/19 16:48:00 EDT, Route to Pharmacy Electronically, [facility]/pharmacy #1026, 165, cm, 03/03/19 9:23:00 EST, Height Start Date: 07/21/19 Status: Ordered traZODone 100 mg oral tablet 200 mg, 2, tablet, By Mouth, Daily at bedtime, # 60 tablet, Refills 5, Tot. Refills 5, Maintenance,02/05/18 22:57:41 EST, Route to Pharmacy Electronically, [id number], [facility]/pharmacy #1026 Start Date: 02/05/18 Status: Ordered traZODone 100 mg oral tablet 200 mg, 2, tablet, By Mouth, Daily at bedtime, PRN, # 30 tablet, Refills 5, Tot. Refills 5, Maintenance, Sleep, 07/30/18 20:00:00 EDT, Route to Pharmacy Electronically, [id number], [facility]/pharmacy #1026 Start Date: 07/30/18 Stop Date: [...]
--- OUTSIDE RECORDS SUMMARY | 2022-10-15 19:34 | XMS_ITS | Continuity of Care Document ---
Author Name Unknown Organization [facility] Address [address] [place] [address]- Care Team Providers Care Billing Adjudicator Name Role Phone Dominik Fenton DO Primary Care Physician Encounter [facility] Date(s): 05/25/22 - 06/24/22 [facility] [address] [place] [address]- Allergies, Adverse Reactions, Alerts Substance Reaction Severity Status Vicodin Active Tylenol with Codeine #3 1 upset stomach A ctive Latex Active 1upset stoamach Immunizations Given and Recorded Vaccine Date Status Refusal Reason SARS-CoV-2 mRNA (znvfkft-[id number]-tyyji) vax 03/20/21 Recorded SARS-CoV-2 (COVID-19) mRNA BNT-162b2 [...] 12:54:00 EDT, Route to Pharmacy Electronically, [facility]/pharmacy #1026, 165, cm, 03/03/19 9:23:00 EST, Height Start Date: 08/03/19 Stop Date: 01/30/20 Status: Ordered hydrochlorothiazide 25 mg oral tablet 1, tablet, By Mouth, Daily, # 30 tablet, Refills 2, Maintenance, 04/23/22 18:40:00 EDT, Route to Pharmacy Electronically, [facility], 165, cm, 04/13/22 13:54:00 EST, Height, 84, kg, 01/23/22 20:28:00 EST, Dry Weight Start Date: 04/23/22 Status: Ordered naproxen 500 mg (as sodium) oral tablet, extended release 1 to 2 tablet, By Mouth, Daily, PRN as needed for arthritis, # 20 each, 0 Refills, Maintenance, 05/27/22 19:56:00 EDT, ER Tablet, [facility]/pharmacy #1026, Partial fill upon patient request if the prescription is for a schedule II opioid drug., 165, cm, ... Start Date: 05/27/22 Status: Ordered PARoxetine 40 mg oral tablet 1.5, tablet, By Mouth, Daily, (TOTAL DOSE OF 60 MG DAILY), # 45 tablet, Refills 6, Maintenance, 06/19/22 11:47:00 EDT, Route to Pharmacy Electronically, [facility] [id number], 165, cm, 06/16/22 14:09:00 EDT, Height, 84, kg, 05/27/22 18:42:00 EDT, Dry Weight Start Date: 06/19/22 Status: Ordered Ventolin HFA 108 mcg/inh inhalation aerosol with adapter 2 puffs, Inhalation, Every 4 hours, PRN NEEDED, WHEEZE., # 18 each, 0 Refills, Maintenance, 12/24/21 16:46:00 EST, [id number], 165, cm, 10/29/21 13:38:00 EDT, Height Start [...] Role: PCP Address: Address: [address] [place] [address]- Care Team Related Persons Name: ROBBIE DAY Address: home [address] [place] [address] Name: FERMIN OSPINA Address: home [address] [address]
--- OUTSIDE RECORDS SUMMARY | 2022-10-15 19:34 | XMS_ITS | Continuity of Care Document ---
Author Name Unknown Organization [facility] ter Address [address] [place] [address]- Care Team Providers Care Software Engineering Project Manager Name Role Phone Dominik Fenton DO Primary Care Physician Encounter [facility] [place] Date(s): 06/17/22 - 07/25/[address] [address] Attending Physician: Rachel Caceres MD Admitting Physician: Rachel Caceres MD Referring Physician: Dominik Fenton DO Allergies, Adverse Reactions, Alerts Substance Reaction Severity Status Vicodin Active Tylenol with Codeine #3 1 upset stomach A ctive Latex Active 1upset stoamach Immunizations Given and Recorded Vaccine Date Status Refusal Reason SARS-CoV-2 mRNA ([id number]-kphoi) vax 03/20/21 Recorded SARS-CoV-2 (COVID-19) mRNA BNT-162b2 [...] 08/03/19 12:54:00 EDT, Route to Pharmacy Electronically, [facility]/pharmacy #1026, 165, cm, 03/03/19 9:23:00 EST, Height Start Date: 08/03/19 Stop Date: 01/30/20 Status: Ordered hydrochlorothiazide 25 mg oral tablet 1, tablet, By Mouth, Daily, # 30 tablet, Refills 2, Maintenance, 04/23/22 18:40:00 EDT, Route to Pharmacy Electronically, [facility], 165, cm, 04/13/22 13:54:00 EST, Height, 84, kg, 01/23/22 20:28:00 EST, Dry Weight Start Date: 04/23/22 Status: Ordered naproxen 500 mg (as sodium) oral tablet, extended release 1 to 2 tablet, By Mouth, Daily, PRN as needed for arthritis, # 20 each, 0 Refills, Maintenance, 05/27/22 19:56:00 EDT, ER Tablet, [facility]/pharmacy #1026, Partial fill upon patient request if the prescription is for a schedule II opioid drug., 165, cm, ... Start Date: 05/27/22 Status: Ordered PARoxetine 40 mg oral tablet 1.5, tablet, By Mouth, Daily, (TOTAL DOSE OF 60 MG DAILY), # 45 tablet, Refills 6, Maintenance, 06/19/22 11:47:00 EDT, Route to Pharmacy Electronically, [facility], 165, cm, 06/16/22 14:09:00 EDT, Height, 84, kg, 05/27/22 18:42:00 EDT, Dry Weight Start Date: 06/19/22 Status: Ordered Ventolin HFA 108 mcg/inh inhalation aerosol with adapter 2 puffs, Inhalation, Every 4 hours, PRN NEEDED, WHEEZE., # 18 each, 0 Refills, Maintenance, 12/24/21 16:46:00 EST, [facility] [address], 165, cm, 10/29/21 13:38:00 EDT, Height Start [...] Role: PCP Address: Address: [address] [place] [address]- Care Team Related Persons Name: ROBBIE DAY Address: home [address] [place] [address] Name: FERMIN OSPINA Address: home [address] [address]
[2022-10-15 19:37] LABS: MANUAL DIFF FLAG NO
[2022-10-15 19:39] LABS: Appearance Urine Clear; Color Urine Dark Yellow; Glucose Urine UA Negative (Negative); Leukocyte Esterase Urine Trace (Negative); Nitrite Urine Negative (Negative); PH 5.5 (5.0-9.0); Specific Gravity - Urine >= 1.030 (1.005-1.025); UMIC TRIGGER UACC YES; Urine Blood Trace (Negative); Urine Ketones Negative (Negative); Urine Protein 30 (1+) mg/dL (Neg-Trace)
[2022-10-15 19:46] LABS: Basophils Absolute Auto 0.1 X10*3/uL (0.0-0.2); Basophils Percent Auto 0.7 % (0-2); Eosinophils Absolute Auto 0.2 X10*3/uL (0.0-0.4); Eosinophils Percent Auto 1.3 % (0-4); Hematocrit 39.4 % (37.0-47.0); Hemoglobin 13.6 g/dl (12.0-16.0); Imm Gran Abs Auto 0.02 X10*3/uL (0.00-0.03); Imm Gran Pct Auto 0.2 % (0.0-0.4); Lymphocytes Absolute Auto 4.6 X10*3/uL (1.2-4.9); Lymphocytes Percent Auto 39.4 % (20-40); Mean Corpuscular HGB Conc 34.5 g/dl (31.0-35.0); Mean Corpuscular Hemoglobin 32.9 pg (27.0-33.0); Mean Corpuscular Volume 95.4 fL (80.0-98.0); Monocytes Absolute Auto 0.9 X10*3/uL (0.1-1.2); Monocytes Percent Auto 8.1 % (2-11); Neutrophils Absolute Auto 5.8 x10*3/uL (2.0-8.3); Neutrophils Percent Auto 50.3 % (45-73); Platelet Count 258 X10*3/uL (160-400); Red Blood Count 4.13 X10*6/uL (4.20-5.50); Red Cell Distribution Width 13.4 % (11.0-16.0); White Blood Count 11.5 X10*3/uL (4.8-10.8)
[2022-10-15 19:55] LABS: Bacteria Urine None Seen (None Seen); Calcium Oxalate Crystals Urine Present; Hyaline Casts Urine 0-2 /LPF (0-2); RBC Urine 0-2 /HPF (0-2); WBC Urine 0-5 /HPF (0-5)
[2022-10-15 20:01] LABS: Alanine Aminotransferase 16 U/L (0-31); Albumin Level 4.1 g/dL (3.5-5.0); Alkaline Phosphatase 100 U/L (39-117); Anion Gap 9 (12-20); Aspartate Amino Transferase 18 U/L (5-31); Bilirubin Direct < 0.2 mg/dL (0.0-0.5); Bilirubin Total 0.2 mg/dL (0.0-1.0); Blood Urea Nitrogen 15 mg/dL (9-16); Calcium 10.4 mg/dL (8.4-10.2); Carbon Dioxide 32 mmol/L (22-29); Chloride 104 mmol/L (96-108); Creatinine Clr Calc Pharmacy 86.4; Estimated Glomerular Filt Rate > 60; Glucose Random 87 mg/dL (60-115); Lipase 59 U/L (8-78); Potassium 3.4 mmol/L (3.3-5.1); Sodium 142 mmol/L (135-145); Total Protein 7.7 g/dL (6.5-8.0)
[2022-10-15 21:27] VITALS: BP 144/87; PULSE 77; RESP 16; TEMP 36.8; O2SAT 98
--- NOTE | 2022-10-15 21:28 | MHC.EDTECH ---
THIS PCT ASSUMED CARE OF PT AT THIS TIME ,VITALS SIGN TAKEN ,PT IS COMFORTABLE AND IS WATCHING TELEVISION .
--- NOTE | 2022-10-15 21:45 | PC.NURSE ---
pt a&ox4, vss, reporting 7/10 intermittent lower abd pain, recently started on tamsulosin by PCP for kidney stones but pt started having abd pain after a couple of days of taking the medication so discontinued. reports cramping abd pain, relieved by bms but reports having constant gassy sensation. pt pending ED provider, no new orders at this time.
== END 2022-10-16 00:06 | disposition home or self-care (01) ==
PROVIDERS: Nurse Practitioner Family; Emergency Provider Student in an Organized Health Care Education/Training Program
DX: N20.1 Calculus of ureter (principal); R10.2 Pelvic and perineal pain; Z79.899 Other long term (current) drug therapy
CPT/HCPCS: 36415; 74018; 80048; 80076; 81001; 83690; 85025; 99283; 99284

== ENCOUNTER 2022-10-26 15:21 | Outpatient (AMB) | payer OTHER, SELFPAY ==
--- NOTE | 2022-10-26 15:23 | A.OFFVIS_ITS ---
Intake Intake Visit Reasons: UPJ stone Intake Note: NEW Patient presents today to established treatment for: Meds- None Allergies to Antibiotic- No Known Allergies Blood Thinner- None Karate Black Belt Required: No Accompanied by: Self / Same As Patient Allergies codeine Allergy (Unknown, Verified 10/26/22 15:30) Unknown latex Allergy (Unknown, Verified 10/26/22 15:30) Unknown HPI HPI Comments History of Present Illness Details Rosaura is a 57-year-old female who presents today to the office to establish as a new patient for an evaluation of UPJ stone. 10/26/2022? She presents today for an evaluation of UPJ stone. I reviewed the CT of the abdomen/pelvis results from 09/22/2022 revealed mild left hydronephrosis with a 0.4 cm calculus in the proximal left ureter. I reviewed the urine culture results from 09/21/2022 revealed 10,000 to 50,000 cfu/ml mixed bacterial lou characteristic of urogenital contamination. She smokes cigarettes daily. She states she continues to have left flank pain. She states this is her first episode of having a kidney stone Discussed the importance of hydrating well, she states she drinks alot of water, discussed low sodium low oxalate and low protein diet Evaluation today?UA?Leuk trace, blood moderate Plan: To schedule left ureteroscopy, laser lithotripsy and stent tomorrow. Plan for Cystoscopy, left ureteroscopy, possible laser lithotripsy, possible ureteral stent. Risks discussed included but not limited to, possible need to repeat procedure if stone is not completely fragmented, Irritative voiding symptoms, bladder spasms, urgency, blood in urine. Discussed to reduce sodium intake. Discussed to consume adequate amount of water. Discussed Low oxalate diet---(green leafy vegetable, nuts, and tea in moderation) as they are rich in oxalate. [facility] Surgical History History of ear surgery Hx of breast surgery Hx of section Family History Mother No problems noted. Father No problems noted. Social History Alcohol intake: never Patient Tobacco Use Status: Current everyday Tobacco user Substance Use Type: Marijuana Review of Systems Const All systems reviewed & are unremarkable except as noted in HPI and below Reports no additional complaints Eyes Reports no additional complaints ENT Reports no additional complaints Card Denies dyspnea Resp Denies cough and Denies dyspnea GI Reports no additional complaints Reports no additional complaints Musc Reports no additional complaints Skin/Breast Denies rash and Denies unusual bruising Neuro Reports no additional complaints Psych Reports no additional complaints Endo Reports no additional complaints Zoran/Lymph Reports no additional complaints Aller/Immun Reports no additional complaints Physical Exam Const General: cooperative, healthy appearing and no acute distress Orientation/consciousness: patient oriented x3 HEENT Head: Yes normal to inspection, Yes normocephalic and Yes atraumatic Eyes Conjunctivae: conjunctivae normal Neck Neck: Yes normal visual inspection and Yes trachea midline Chest Chest palpation & inspection: normal inspection of the chest Resp Effort & Inspection: normal respiratory effort Cardio Rate: regular rate GI Inspection: Yes normal to inspection Skin General skin exam: no rashes or lesions noted Neuro General: patient oriented x3 Extrem General: No edema Psych Appearance: grossly normal Results AMB Urinalysis, Automated UA Leukoctes 15 Bang/uL Last Edit by DARÍO Maurer on 10/26/22 15:40 UA Nitrite Negative Last Edit by DARÍO Maurer on 10/26/22 15:40 UA Urobilinogen 0.2 mg/dL Last Edit by DARÍO Maurer on 10/26/22 15:4 0 UA Protein 30 mg/dL Last Edit by DARÍO Maurer on 10/26/22 15:40 1+ Ragini Abebe 10/26/22 15:40 UA pH 6.0 Last Edit by DARÍO Maurer on 10/26/22 15:40 UA Blood 80 Ignacio/uL Last Edit by DARÍO Maurer on 10/26/22 15:40 2+ Ragini Abebe 10/26/22 15:40 UA Specific Cromwell 1.020 Last Edit by Ragini Abebe DARÍO on 10/26/22 15: 40 UA Ketone Negative Last Edit by Ragini Abebe DARÍO on 10/26/22 15:40 UA Bilirubin 0 mg/dL Last Edit by Ragini Abebe DESHAWNA on 10/26/22 15:40 UA Glucose 0 mg/dL Last Edit by Ragini Abebe Ottoniel on 10/26/22 15:40 Results Reviewed Results Reviewed: Laboratory Last Values Urine pH (Auto) 6.0 10/26/22 15:38 Specific Cromwell (Auto) 1.020 10/26/22 15:38 Urine Protein (Auto) 30 mg/dL 10/26/22 15:38 Glucose (UA)(Auto) 0 mg/dL 10/26/22 15:38 Urine Ketones (Auto) Negative 10/26/22 15:38 Urine Blood (Auto) 80 Ignacio/uL 10/26/22 15:38 Urine Nitrite (Auto) Negative 10/26/22 15:38 Urine Bilirubin (Auto) 0 mg/dL 10/26/22 15:38 Urine Urobilinogen (Auto) 0.2 mg/dL 10/26/22 15:38 Leukocyte Esterase (Auto) 15 Bang/uL 10/26/22 15:38 Ordered:? Urine Culture? Procedure?Result?Verified?Site ? Urine Culture? Final?09/23/22-1044 ? Report Result?10,000 to 50,000 cfu/ml ? Mixed bacterial lou characteristic of ? urogenital contamination. Date of Service: 09/22/22 EXAMINATION: CT ABDOMEN AND PELVIS WITHOUT CONTRAST?? CLINICAL INFORMATION: Left lower abdominal pain.?? COMPARISON: None available. FINDINGS: LUNG BASES: The lung bases are clear. Coronary artery calcifications are present.?? LIVER, GALLBLADDER, AND BILIARY TREE: The liver is normal in size, shape, and attenuation. No biliary ductal dilatation there is a 0.7 cm hypoattenuating lesion in segment 6 of the liver which is too small to further characterize.. The gallbladder is unremarkable with no evidence of radiopaque gallstones, gallbladder wall thickening, or obvious pericholecystic inflammatory changes.?? PANCREAS: Unremarkable.?? SPLEEN: Unremarkable.?? ADRENAL GLANDS: Unremarkable.?? KIDNEYS AND URETERS: The kidneys are normal in size, shape, and attenuation. Mild left hydronephrosis. 0.4 cm calculus in the proximal left ureter at the level of L2-L3 BLADDER: Unremarkable.?? GASTROINTESTINAL TRACT: The stomach is unremarkable. Normal caliber of the small bowel. No obstruction. Normal appendix. Colonic diverticulosis without diverticulitis. No wall thickening or inflammation. No free air or free fluid.?? ABDOMINAL WALL: No significant hernia is appreciated.?? LYMPH NODES: Normal. VASCULAR: Normal caliber aorta with moderate atherosclerotic calcification. PELVIC VISCERA: The uterus and adnexa are unremarkable.?? OSSEOUS STRUCTURES: No acute or suspicious osseous abnormality. Degenerative change throughout the spine. Vacuum disc phenomenon seen throughout the lumbar spine. Grade 1 retrolisthesis of L5 on S1. Grade 1 anterolisthesis of L4 on L5.?? IMPRESSION: Mild left hydronephrosis with a 0.4 cm calculus in the proximal left ureter. Assessment & Plan Assessment & Plan (1) Obstruction of ureteropelvic junction (UPJ) due to stone: Code(s): N20.1 - Calculus of ureter (2) Hydronephrosis: Code(s): N13.30 - Unspecified hydronephrosis (3) Nicotine dependence: Code(s): F17.200 - Nicotine dependence, unspecified, uncomplicated Plan To schedule left ureteroscopy, laser lithotripsy and stent tomorrow. Diet sheet for renal calculi prevention was provided to the patient.? Discussed to reduce sodium intake.? Discussed to consume adequate amount of water.? Discussed Low oxalate diet---green leafy vegetable, nuts, and tea in moderation as they are rich in oxalate.? Orders: Orders AMB Urinalysis Automated 10/26/22 Z13.9 - Encounter for screening, unspecified Patient Instructions: The patient had an opportunity to ask questions regarding treatment plan. All questions were answered. Imaging, Laboratory studies and physical exam results were discussed and reviewed in detail. No major barriers to understanding were identified. The patient expressed understanding and agreement with the above treatment plan.? ? ? The patient is aware they should contact our office by phone for worsening of their current condition or the appearance of new symptoms. Compliance is encouraged with any medications and followup testing that is ordered.? ? ? It is a privilege to be allowed the opportunity to participate in the urologic care of your patient. If you have any questions or concerns regarding treatment for the above conditions please do not hesitate to contact me. The office telephone contact is [phone].? ? ? This note is constructed in part using voice recognition software. While every effort has been made to ensure accuracy track oiler errors may have been included.? ? ? Yours sincerely,? ? ? Katherine Doss MD? Coding Level of Care Code New Pt Level 4 (37609) Diagnoses Obstruction of ureteropelvic junction (UPJ) due to stone N20.1 Hydronephrosis N13.30 Nicotine dependence F17.200
== END 2022-10-26 15:59 | disposition home or self-care (01) ==
PROVIDERS: Visit Provider Urology
DX: N20.1 Calculus of ureter (principal); N13.30 Unspecified hydronephrosis; F17.200 Nicotine dependence, unspecified, uncomplicated
CPT/HCPCS: 99204

== ENCOUNTER → 2022-10-26 15:21 | Outpatient (BNVA) | payer OTHER, SELFPAY | PROVIDERS: Visit Provider Urology | DX: N20.1 Calculus of ureter (principal); N13.30 Unspecified hydronephrosis; F17.200 Nicotine dependence, unspecified, uncomplicated | CPT/HCPCS: 81003 ==

== ENCOUNTER 2022-10-27 10:20 | Day surgery (SDC) | payer OTHER, SELFPAY ==
[2022-10-27] VITALS (11 sets, daily range): BP systolic 129–149; BP diastolic 75–83; PULSE 69–96; RESP 16–18; TEMP 36.2–36.9; O2SAT 89–96; BMI 30.8
--- NOTE | ~2022-10-27 | FL_ITS ---
EXAMINATION: XR FLUOROSCOPY WITH IMAGES CLINICAL INFORMATION: Left stone. COMPARISON: None available. TECHNIQUE: Fluoroscopy Supervised By: Dr. Doss. Fluoroscopy Time: 27.6 seconds. Cumulative Dose: 11.03 mGy. DAP: Not available. Images: 2. FINDINGS: Images demonstrate a left internal ureteral stent in satisfactory position. FL/FL guidance in OR IMPRESSION: Fluoroscopy guidance for left internal ureteral stent placement
--- OUTSIDE RECORDS SUMMARY | 2022-10-27 10:22 | XMS_ITS | Continuity of Care Document ---
Author Name Unknown Organization [facility] Address [address] [place] [address]- Care Team Providers Care Abstract Manager Name Role Phone Alvarado Sun DO Primary Care Physician [phone] Encounter [facility] Date(s): 09/21/22 - 10/21/22 [facility] [address], [place] [address] Allergies, Adverse Reactions, Alerts Substance Reaction Severity Status Vicodin Active Tylenol with Codeine #3 1 upset stomach A ctive Latex Active 1upset stoamach Immunizations Given and Recorded Vaccine Date Status Refusal Reason SARS-CoV-2 mRNA ([id number]-[id number]-ueben) vax 03/20/21 Recorded SARS-CoV-2 (COVID-19) mRNA BNT-162b2 [...] 08/03/19 12:54:00 EDT, Route to Pharmacy Electronically, [facility]/pharmacy #[id number], 165, cm, 03/03/19 9:23:00 EST, Height Start Date: 08/03/19 Stop Date: 01/30/20 Status: Ordered Flomax 0.4 mg oral capsule 0.4 mg, 1, capsule, By Mouth, Daily, # 14 capsule, Refills 0, Tot. Refills 0, Maintenance, 10/02/2316:40:00 EDT, Route to Pharmacy Electronically, [facility]/pharmacy #[id number], Partial fill upon patient request if the prescription is for a schedule II opioid d... Start Date: 10/02/22 Stop Date: 10/16/22 Status: Ordered hydrochlorothiazide 25 mg oral tablet 1, tablet, By Mouth, Daily, # 30 tablet, Refills 2, Tot. Refills 2, Maintenance, 07/27/22 13:09:00 EDT, [id number], cm, 06/16/22 14:09:00 EDT, Height, 84, kg, 05/27/22 18:42:00 EDT, Dry Weight Start Date: 07/27/22 Status: Ordered naproxen 500 mg (as sodium) oral tablet, extended release 1 to 2 tablet, By Mouth, Daily, PRN as needed for arthritis, # 20 each, 0 Refills, Maintenance, 05/27/22 19:56:00 EDT, ER Tablet, [facility]/pharmacy #[id number], Partial fill upon patient request if the prescription is for a schedule II opioid drug., 165, cm, ... Start Date: 05/27/22 Status: Ordered PARoxetine 40 mg oral tablet 1.5, tablet, By Mouth, Daily, (TOTAL DOSE OF 60 MG DAILY), # 45 tablet, Refills 6, Maintenance, 06/19/22 11:47:00 EDT, Route to Pharmacy Electronically, [id number], 165, cm, 06/16/22 14:09:00 EDT, Height, 84, kg, 05/27/22 18:42:00 EDT, Dry Weight Start Date: 06/19/22 Status: Ordered Percocet 2.5 mg-325 mg oral tablet 2 tablet, By Mouth, Every 6 hours, PRN as needed for pain, for 5 days, # 20 tablet, 0 Refills, Acute 10/26/22 15:09:00 EDT, 10/21/22 15:09:00 EDT, Tablet, [facility]/pharmacy #[id number], Partial fill upon patient request if the prescription is for a schedule II o... Start Date: 10/21/22 Stop Date: 10/26/22 Status: Ordered tamsulosin 0.4 mg oral capsule 0.4 mg, 1, capsule, By Mouth, Daily, # 30 capsule, Refills 0, Tot. Refills 0, Maintenance, 10/21/2314:09:00 EDT, Route to Pharmacy Electronically, [facility]/pharmacy #[id number], Partial fill upon patient request if the prescription is for a schedule II opioid d... Start Date: 10/21/22 Status: Ordered Ventolin HFA 108 mcg/inh inhalation aerosol with adapter 2 puffs, Inhalation, Every 4 hours, PRN NEEDED, WHEEZE., # 18 each, 0 Refills, Maintenance, 12/24/21 16:46:00 EST, [id number], 165, cm, 10/29/21 13:38:00 EDT, Height Start [...] S Resident Member Role: PCP Address: Address: [address] [place] [address]- Care Team Related Persons Name: ROBBIE DAY Address: home [address] [place] [address] Name: FERMIN OSPINA Address: home [address] [address]
--- OUTSIDE RECORDS SUMMARY | 2022-10-27 10:23 | XMS_ITS | Continuity of Care Document ---
Author Name Unknown Organization [facility] Address [address] [place] [address]- Care Team Providers Care Paint Prepper Name Role Phone Alvarado Sun DO Primary Care Physician [phone] [place] [facility] [place] [facility] [address] [place], [place] [address] Attending Physician: Not on Staff, Attending MD Allergies, Adverse Reactions, Alerts Substance Reaction Severity Status Vicodin Active Tylenol with Codeine #3 1 upset stomach A ctive Latex Active 1upset stoamach Immunizations Given and Recorded Vaccine Date Status Refusal Reason SARS-CoV-2 mRNA (vvfsrws-xydd-tithy) vax 03/20/21 Recorded SARS-CoV-2 (COVID-19) mRNA BNT-162b2 [...] 12:54:00 EDT, Route to Pharmacy Electronically, [facility]/pharmacy #[id number], 165, cm, 03/03/19 9:23:00 EST, Height Start Date: 08/03/19 Stop Date: 01/30/20 Status: Ordered Flomax 0.4 mg oral capsule 0.4 mg, 1, capsule, By Mouth, Daily, # 14 capsule, Refills 0, Tot. Refills 0, Maintenance, 10/02/2316:40:00 EDT, Route to Pharmacy Electronically, [facility]/pharmacy #[id number], Partial fill upon patient request if the prescription is for a schedule II opioid d... Start Date: 10/02/22 Stop Date: 10/16/22 Status: Ordered hydrochlorothiazide 25 mg oral tablet 1, tablet, By Mouth, Daily, # 30 tablet, Refills 2, Tot. Refills 2, Maintenance, 07/27/22 13:09:00 EDT, Route to Pharmacy Electronically, [facility]/pharmacy #[id number], 165, cm, 06/16/22 14:09:00 EDT, Height, 84, kg, 05/27/22 18:42:00 EDT, Dry Weight Start Date: 07/27/22 Status: Ordered naproxen 500 mg (as sodium) oral tablet, extended release 1 to 2 tablet, By Mouth, Daily, PRN as needed for arthritis, # 20 each, 0 Refills, Maintenance, 05/27/22 19:56:00 EDT, ER Tablet, [facility]/pharmacy #[id number], Partial fill upon patient request if the prescription is for a schedule II opioid drug., 165, cm, ... Start Date: 05/27/22 Status: Ordered PARoxetine 40 mg oral tablet 1.5, tablet, By Mouth, Daily, (TOTAL DOSE OF 60 MG DAILY), # 45 tablet, Refills 6, Maintenance, 06/19/22 11:47:00 EDT, Route to Pharmacy Electronically, [id number], 165, cm, 06/16/22 14:09:00 EDT, Height, 84, kg, 05/27/22 18:42:00 EDT, Dry Weight Start Date: 06/19/22 Status: Ordered Percocet 2.5 mg-325 mg oral tablet 2 tablet, By Mouth, Every 6 hours, PRN as needed for pain, for 5 days, # 20 tablet, 0 Refills, Acute 10/26/22 15:09:00 EDT, 10/21/22 15:09:00 EDT, Tablet, [facility]/pharmacy #1026, Partial fill upon patient request if the prescription is for a schedule II o... Start Date: 10/21/22 Stop Date: 10/26/22 Status: Ordered tamsulosin 0.4 mg oral capsule 0.4 mg, 1, capsule, By Mouth, Daily, # 30 capsule, Refills 0, Tot. Refills 0, Maintenance, 10/21/2314:09:00 EDT, Route to Pharmacy Electronically, [facility]/pharmacy #[id number], Partial fill upon patient request if the prescription is for a schedule II opioid d... Start Date: 10/21/22 Status: Ordered Ventolin HFA 108 mcg/inh inhalation aerosol with adapter 2 puffs, Inhalation, Every 4 hours, PRN NEEDED, WHEEZE., # 18 each, 0 Refills, Maintenance, 12/24/21 16:46:00 EST, [id number], 165, cm, 10/29/21 13:38:00 EDT, Height Start [...] Team Personnel Name: Alvarado Sun DO Position: [facility] Resident Member Role: PCP Address: Address: [address] [place] [phone]- Care Team Related Persons Name: ROBBIE DAY Address: home [address] [place] [address] Name: FERMIN OSPINA Address: home [address] [address]
--- OUTSIDE RECORDS SUMMARY | 2022-10-27 10:25 | XMS_ITS | Continuity of Care Document ---
Author Name Unknown Organization [facility] Address [address] [place] [address]- Care Team Providers Care Gift Basket Packer Name Role Phone Alvarado Sun DO Primary Care Physician [place] [facility] [place]): 08/24/22 - 10/16/22 [facility] [address] [place], [place] [address] Attending Physician: Kevan Garcia MD Admitting Physician: Kevan Garcia MD Allergies, Adverse Reactions, Alerts Substance Reaction Severity Status Vicodin Active Tylenol with Codeine #3 1 upset stomach A ctive Latex Active 1upset stoamach Immunizations Given and Recorded Vaccine Date Status Refusal Reason SARS-CoV-2 mRNA ([id number]-hxzy-llzqr) vax 03/20/21 Recorded SARS-CoV-2 (COVID-19) mRNA BNT-162b2 [...] 08/03/19 12:54:00 EDT, Route to Pharmacy Electronically, [facility]/pharmacy #[id number], 165, cm, 03/03/19 9:23:00 EST, Height Start Date: 08/03/19 Stop Date: 01/30/20 Status: Ordered Flomax 0.4 mg oral capsule 0.4 mg, 1, capsule, By Mouth, Daily, # 14 capsule, Refills 0, Tot. Refills 0, Maintenance, 10/02/2316:40:00 EDT, Route to Pharmacy Electronically, [facility]/pharmacy #[id number], Partial fill upon patient request if the prescription is for a schedule II opioid d... Start Date: 10/02/22 Stop Date: 10/16/22 Status: Ordered hydrochlorothiazide 25 mg oral tablet 1, tablet, By Mouth, Daily, # 30 tablet, Refills 2, Tot. Refills 2, Maintenance, 07/27/22 13:09:00 EDT, Route to Pharmacy Electronically, [facility]/pharmacy #[id number], 165, cm, 06/16/22 14:09:00 EDT, Height, 84, kg, 05/27/22 18:42:00 EDT, Dry Weight Start Date: 07/27/22 Status: Ordered naproxen 500 mg (as sodium) oral tablet, extended release 1 to 2 tablet, By Mouth, Daily, PRN as needed for arthritis, # 20 each, 0 Refills, Maintenance, 05/27/22 19:56:00 EDT, ER Tablet, [facility]/pharmacy #1026, Partial fill upon patient request if the prescription is for a schedule II opioid drug., 165, cm, ... Start Date: 05/27/22 Status: Ordered PARoxetine 40 mg oral tablet 1.5, tablet, By Mouth, Daily, (TOTAL DOSE OF 60 MG DAILY), # 45 tablet, Refills 6, Maintenance, 06/19/22 11:47:00 EDT, Route to Pharmacy Electronically, [id number], 165, cm, 06/16/22 14:09:00 EDT, Height, 84, kg, 05/27/22 18:42:00 EDT, Dry Weight Start Date: 06/19/22 Status: Ordered Ventolin HFA 108 mcg/inh inhalation aerosol with adapter 2 puffs, Inhalation, Every 4 hours, PRN NEEDED, WHEEZE., # 18 each, 0 Refills, Maintenance, 12/24/21 16:46:00 EST, [facility], 165, cm, 10/29/21 13:38:00 EDT, Height Start [...] S Resident Member Role: PCP Address: Address: [address] [place] [id number]- Care Team Related Persons Name: ROBBIE DAY Address: home [address] [place] [address] Name: FERMIN OSPINA Address: [address] [address]
--- OUTSIDE RECORDS SUMMARY | 2022-10-27 10:25 | XMS_ITS | Continuity of Care Document ---
Author Name Unknown Organization [facility] Address [address] [place] [address]- Care Team Providers Care Chucking Machine Set Up Operator Name Role Phone Alvarado Sun DO Primary Care Physician Encounter [facility] Date(s): 09/24/22 - 10/24/22 [facility] [address] [place], [place] [address] Allergies, Adverse Reactions, Alerts Substance Reaction Severity Status Vicodin Active Tylenol with Codeine #3 1 upset stomach A ctive Latex Active 1upset stoamach Immunizations Given and Recorded Vaccine Date Status Refusal Reason SARS-CoV-2 mRNA ([id number]-lndw-rkjyh) vax 03/20/21 Recorded SARS-CoV-2 (COVID-19) mRNA BNT-162b2 [...] 12:54:00 EDT, Route to Pharmacy Electronically, [facility]/pharmacy #[id number], 165, cm, 03/03/19 9:23:00 EST, Height Start Date: 08/03/19 Stop Date: 01/30/20 Status: Ordered Flomax 0.4 mg oral capsule 0.4 mg, 1, capsule, By Mouth, Daily, # 14 capsule, Refills 0, Tot. Refills 0, Maintenance, 10/02/2316:40:00 EDT, Route to Pharmacy Electronically, [facility]/pharmacy #1026, Partial fill upon patient request if the prescription is for a schedule II opioid d... Start Date: 10/02/22 Stop Date: 10/16/22 Status: Ordered hydrochlorothiazide 25 mg oral tablet 1, tablet, By Mouth, Daily, # 30 tablet, Refills 2, Tot. Refills 2, Maintenance, 07/27/22 13:09:00 EDT, [facility], cm, 06/16/22 14:09:00 EDT, Height, 84, kg, 05/27/22 18:42:00 EDT, Dry Weight Start Date: 07/27/22 Status: Ordered naproxen 500 mg (as sodium) oral tablet, extended release 1 to 2 tablet, By Mouth, Daily, PRN as needed for arthritis, # 20 each, 0 Refills, Maintenance, 05/27/22 19:56:00 EDT, ER Tablet, [facility]/pharmacy #1026, Partial fill upon patient request if the prescription is for a schedule II opioid drug., 165, cm, ... Start Date: 05/27/22 Status: Ordered PARoxetine 40 mg oral tablet 1.5, tablet, By Mouth, Daily, (TOTAL DOSE OF 60 MG DAILY), # 45 tablet, Refills 6, Maintenance, 06/19/22 11:47:00 EDT, Route to Pharmacy Electronically, [id number], 165, cm, 06/16/22 14:09:00 EDT, Height, 84, kg, 05/27/22 18:42:00 EDT, Dry Weight Start Date: 06/19/22 Status: Ordered Percocet 2.5 mg-325 mg oral tablet 2 tablet, By Mouth, Every 6 hours, PRN as needed for pain, for 5 days, # 20 tablet, 0 Refills, Acute 10/26/22 15:09:00 EDT, 10/21/22 15:09:00 EDT, Tablet, [facility]/pharmacy #1026, Partial fill upon patient request if the prescription is for a schedule II o... Start Date: 10/21/22 Stop Date: 10/26/22 Status: Ordered tamsulosin 0.4 mg oral capsule 0.4 mg, 1, capsule, By Mouth, Daily, # 30 capsule, Refills 0, Tot. Refills 0, Maintenance, 10/21/2314:09:00 EDT, Route to Pharmacy Electronically, [facility]/pharmacy #[id number], Partial fill upon patient request if the prescription is for a schedule II opioid d... Start Date: 10/21/22 Status: Ordered Ventolin HFA 108 mcg/inh inhalation aerosol with adapter 2 puffs, Inhalation, Every 4 hours, PRN NEEDED, WHEEZE., # 18 each, 0 Refills, Maintenance, 12/24/21 16:46:00 EST, [id number], 165, cm, 10/29/21 13:38:00 EDT, Height Start [...] S Resident Member Role: PCP Address: Address: [address] [place] [id number]- Care Team Related Persons Name: ROBBIE DAY Address: home [address] [place] [address] Name: FERMIN OSPINA Address: [address] [address]
--- NOTE | 2022-10-27 11:01 | P.CONAN_ITS ---
Documented by User: Mayra Brown MD 10/27/22 11:52 HPI - Anesthesia Eval Consult details Narrative: 57yo female patient for Cysto, Left ureteroscopy, retro, laser, stent Left ureter PMFSH Active Problems Active Problems: All Active Problems (Updated 10/27/22 @ 11:35 by Mayra Brown MD) Nicotine dependence (Acute) Hydronephrosis (Acute) Obstruction of ureteropelvic junction (UPJ) due to stone (Acute) Increased BMI Denies LANNY Anxiety/Depression Past Medical History Medical History HTN (hypertension) COPD (chronic obstructive pulmonary disease) Family History Family History Mother No problems noted. Father No problems noted. Family history of problems with anesthesia: No Surgical History Surgical History History of ear surgery Hx of breast surgery Hx of section History of Problems with Anesthesia: No Social History Social History Alcohol intake: never Patient Tobacco Use Status: Current everyday Tobacco user Tobacco use type: Cigarette Cigarette Packs Per Day: 0.5 Cigarettes Per Day: 10.0 Use of substances other than those prescribed or required for medical reasons: Yes Substance Use Type: Marijuana Are you DNR?: No Advance Directives: No Advance Directives Information Provided: Yes Advance Directives on File: No Meds Allergies Allergy/AdvReac Type Severity Reaction Status Date / Time codeine Allergy Unknown Unknown Verified 10/26/22 15:30 latex Allergy Unknown Unknown Verified 10/26/22 15:30 Home Medications Medication Instructions Recorded Confirmed Last Taken Type amlodipine 5 mg tablet 5 mg PO DAILY 10/26/22 Unknown History atorvastatin 80 mg tablet 80 mg PO BEDTIME 10/26/22 Unknown History hydrochlorothiazide 25 mg tablet 25 mg PO DAILY 10/26/22 Unknown History paroxetine HCl 40 mg tablet 40 mg PO 10/26/22 Unknown History Exam Airway Mallampati Class: Patient Non-Cooperative TM Dist: >3cm Neck ROM: Full Denture: Upper and Lower Heart: RRR Lungs: CTAB Assessment and Plan Assessment Anesthesia Assessment: Anesthesia Plan Discussed and Chart Reviewed Final Anesthetic Review Family History of Problems with Anesthesia: No History of Problems with Anesthesia: No NPO: Yes ASA Class: III Final Preanesthetic Review: No Changes in Pt Med Stat, Meds/Allgs Chart Review ed, Consent Obtained/Reviewed and Anes Risks/Benef Reviewed Patient Risk: Intermediate Procedure Risk: Low Assessment/Block/Sedation in SS: Assess/Block/Sedation-SS Anesthetic Plan Anesthetic Plan: GA Disposition: Standard PACU Documented by User: Alicja Castro MD 10/27/22 12:17 PMFSH Active Problems Active Problems: All Active Problems (Updated 10/27/22 @ 10:26 by Daisy Morales RN) Nicotine dependence (Acute) Hydronephrosis (Acute) Obstruction of ureteropelvic junction (UPJ) due to stone (Acute) Past Medical History Medical History HTN (hypertension) COPD (chronic obstructive pulmonary disease) Functional capacity: independent ambulation Family History Family History Mother No problems noted. Father No problems noted. Surgical History Surgical History History of ear surgery Hx of breast surgery Hx of section Social History Social History Alcohol intake: never Patient Tobacco Use Status: Current everyday Tobacco user Tobacco use type: Cigarette Cigarette Packs Per Day: 0.5 Cigarettes Per Day: 10.0 Use of substances other than those prescribed or required for medical reasons: Yes Substance Use Type: Marijuana Are you DNR?: No Advance Directives: No Advance Directives Information Provided: Yes Advance Directives on File: No Meds Allergies Allergy/AdvReac Type Severity Reaction Status Date / Time codeine Allergy Unknown Unknown Verified 10/26/22 15:30 latex Allergy Unknown Unknown Verified 10/26/22 15:30 Home Medications Medication Instructions Recorded Confirmed Last Taken Type amlodipine 5 mg tablet 5 mg PO DAILY 10/26/22 Unknown History atorvastatin 80 mg tablet 80 mg PO BEDTIME 10/26/22 Unknown History hydrochlorothiazide 25 mg tablet 25 mg PO DAILY 10/26/22 Unknown History paroxetine HCl 40 mg tablet 40 mg PO 10/26/22 Unknown History Exam Exam Date and Time: October 27, 2022 1101 Height,Weight and Vital Signs: Height 5 ft 5 in Weight 83.9 kg Last Vital Signs Temp 97.2 F 10/27/22 10:40 Pulse 69 10/27/22 10:40 Resp 16 10/27/22 10:40 BP 145/83 H 10/27/22 10:40 Pulse Ox 96 10/27/22 10:40 O2 Del Method Room Air 10/27/22 10:40 Airway Mallampati Class: IV
--- NOTE | 2022-10-27 13:34 | W.PM.OPN ---
Operative Note Operative Note Date of Service: 10/27/22 Narrative: PreOperative Diagnosis:?? left ureteral stone Post Operative Diagnosis:?? left ureteral stone Procedure: - cystoscopy, left retrograde, left ureteroscopy laser lithotripsy stent insertion, 6 Trinidadian by 24 cm Surgeon:?Dr Katherine Doss Anesthesia:? General Indications for procedure: Procedure: After informed consent was verified the patient was brought to the operating placed on the OR table in supine position.? General Anesthesia was administered per protocol.? The patient was placed in lithotomy position, prepped and draped in the usual sterile fashion.? Safety pause time-out and side of surgery confirmed.? Antibiotics confirmed. 2% lidocaine jelly 10 mL was passed transurethrally. A 22 Trinidadian cystoscope was inserted transurethrally. The bladder was visualized.? Both ureteric orifices were in normal position. An open-ended ureteral catheter was passed into the left ureteral orifice and a retrograde examination was performed. There was a filling defect in the left ureter and dilatation of the proximal ureter and renal pelvis and calices. A guidewire was passed through the ureteral catheter into the kidney. The balloon dilator size 15 fr was passed over the guide -wire the balloon was inflated to 10 mmHg and the intramural ureter was dilated for 45 seconds. The balloon was deflated and removed. After removing the balloon dilator a 2nd guidewire was then passed into the kidney to use as a safety. The cystoscope was removed, leaving both guidewires in place. One guidewire was used as the safety and was attached to the draping. The semi rigid ureteroscope was passed over one of the guidewires to the level of the stone in the ureter. One guidewire was then removed. Laser lithotripsy of the stone was done using the 365 fiber with a settings 0.8 joules by 6 hertz. There was good fragmentation of the stone. The 0 degree basket was passed through the ureteroscope, fragments removed to send for analysis. The ureteroscope was removed. The cystoscope was passed over the safety guidewire. A? 6 Trinidadian by 24 cm stent was placed into the ureter and renal pelvis under a combination of fluoroscopy and direct visualization. The bladder was emptied.? The rigid cystoscope was removed. ? The patient tolerated the procedure well and was brought to the recovery room in stable condition. Complications: None Drains: Ureteral stent as dictated above
[2022-10-27] MEDS: Phenazopyridine HCL 200 MG TABLET PO (14:01)
[2022-11-03 13:58] LABS: Stone Source KIDNEY STONE
== END 2022-10-27 15:36 | disposition home or self-care (01) ==
PROVIDERS: Visit Provider Urology
PROC: (CPT 52356; principal; 2022-10-27 12:50)
DX: N20.1 Calculus of ureter (principal); I10 Essential (primary) hypertension; J44.9 Chronic obstructive pulmonary disease, unspecified; Z79.899 Other long term (current) drug therapy; Z88.5 Allergy status to narcotic agent; Z91.040 Latex allergy status; F17.210 Nicotine dependence, cigarettes, uncomplicated; F12.90 Cannabis use, unspecified, uncomplicated
CPT/HCPCS: 52356; 82365; 88300; C1726; C1769; C2617; J0690; J2250; J2405; J3010; Q9967

== ENCOUNTER → 2022-10-27 10:20 | Outpatient (BNV) | payer OTHER, SELFPAY | PROVIDERS: Visit Provider Urology | DX: N20.1 Calculus of ureter (principal) | CPT/HCPCS: 52356 ==

== ENCOUNTER 2022-11-05 13:26 | Outpatient (AMB) | payer OTHER, SELFPAY ==
--- NOTE | 2022-11-05 13:31 | MHC.OFFVIS ---
Intake Intake Visit Reasons: cysto/stent removal (per dr escudero) Intake Note: Patient presents today for a CYSTOSCOPY/STENT REMOVAL Procedure: Meds: None Allergies to Antibiotic: No Known Allergies Blood Thinner: None Urinalysis test clear for Cysto? Disposable Uro-G Cystoscope Cannula: Lot: [id number] Exp: 06/21/2024 Web Coordinator Required: No Accompanied by: Self / Same As Patient Allergies codeine Allergy (Unknown, Verified 11/05/22 13:36) Unknown latex Allergy (Unknown, Verified 11/05/22 13:36) Unknown HPI HPI Comments History of Present Illness Details Rosaura is a 57-year-old female who presents today to the office for a follow-up. 11/05/2022? She is followed today for stent removal/cystoscopy procedure. She was last seen by me on 10/27/2022. She is a status post left ureteroscopy, laser lithotripsy done on 10/27/2022. Discussion with patient: Stone analysis was obtained which came back Calcium Oxalate Dihydrate 10%, and calcium Oxalate Monohydrate 90%. Diet sheet for renal calculi prevention was provided to the patient. Discussed to reduce sodium intake. Discussed to consume adequate amount of water. 11/05/2022: Plan: Stent was removed today in the office. Ordered 24-hour urine collection test. Vitamin B6 100 mg daily was ordered. Follow-up in 10 weeks. [facility] Medical History HTN (hypertension) COPD (chronic obstructive pulmonary disease) Surgical History History of removal of ureteral stent History of ear surgery Hx of breast surgery Hx of section Family History Mother No problems noted. Father No problems noted. Social History Alcohol intake: never Patient Tobacco Use Status: Current everyday Tobacco user Tobacco use type: Cigarette Cigarette Packs Per Day: 0.5 Cigarettes Per Day: 10.0 Substance Use Type: Marijuana Review of Systems Const All systems reviewed & are unremarkable except as noted in HPI and below Reports no additional complaints Eyes Reports no additional complaints ENT Reports no additional complaints Card Denies dyspnea Resp Denies cough and Denies dyspnea GI Reports no additional complaints Reports no additional complaints Musc Reports no additional complaints Skin/Breast Denies rash and Denies unusual bruising Neuro Reports no additional complaints Psych Reports no additional complaints Endo Reports no additional complaints Zoran/Lymph Reports no additional complaints Aller/Immun Reports no additional complaints Office Procedures Cystoscopy Consent Discussed risk and benefit or proposed procedure with the patient. Information consent for procedure given to the patient. Discussed technical aspects, risks, benefits and alternatives in full. Addressed all of the patient's questions and concerns regarding the procedure. The patient demonstrated knowledge and understanding. They wish to proceed with this procedure. Preparation The patient was prepped in the usual manner. A protection consultant was present and in the room. Genitalia was prepped with betadine solution in a sterile manner. Lidocaine Jelly 2% was placed into the urethra and 16Fr flexible Olympus cystoscope was inserted into the meatus after adequate lubrication. Procedure Time out per protocol performed. Bladder Inspection Cystoscopy findings: mild edema left ureteral orifice which is expected, distal end of ureteral stent visualized. The grasping forceps were used and the stent was removed without difficulty. [id number] with stent removal DISPOSABLE SCOPE URO-G FLEXIBLE SCOPE Procedure code (CPT) selection complete Office Meds lidocaine HCl 2 % mucosal jelly in applicator Performing Provider: Katherine Doss MD Performing Location: [facility] Administered by: Kevin Herron LPN on 11/05/22 14:22 Dose Route Admin Location Dispensed Lot Number Expiration Date [facility] [address] Maintainer 10 mL intra-urethral 20 mL naproxen 500 mg tablet Performing Provider: Katherine Doss MD Performing Location: [facility] Documented (not given) by: Kevin Herron LPN on 11/05/22 14:22 Reason Not Given: Patient Refused ciprofloxacin HCl 500 mg tablet Performing Provider: Katherine Doss MD Performing Location: [facility] Administered by: Kevin Herron LPN on 11/05/22 14:22 Dose Route Admin Location Dispensed Lot Number Expiration Date [facility] [address] Maintainer 500 mg PO 1 tab Results AMB Urinalysis, Automated UA Leukoctes 500 Bang/uL Last Edit by DARÍO Maurer on 11/05/22 13:57 3+ Ragini Abebe 11/05/22 13:57 UA Nitrite Positive Last Edit by Ragini Abebe [facility] on 11/05/22 13:57 UA Urobilinogen 8 mg/dL Last Edit by Ragini Abebe [facility] on 11/05/22 13:57 3+ Ragini Abebe 11/05/22 13:57 UA Protein 300 mg/dL Last Edit by Ragini Abebe, [facility] on 11/05/22 13:57 3+ Ragini Abebe 11/05/22 13:57 UA pH 5.0 Last Edit by Ragini Abebe [facility] on 11/05/22 13:57 UA Blood 200 Ignacio/uL Last Edit by Ragini Abebe, [facility] on 11/05/22 13:57 3+ Ragini Abebe 11/05/22 13:57 UA Specific Purling 1.025 Last Edit by Ragini Abebe [facility] on 11/05/22 13:57 UA Ketone Positive Last Edit by Ragini Abebe, [facility] on 11/05/22 13:57 15 mg/dL Ragini bAebe 11/05/22 13:57 UA Bilirubin 4 mg/dL Last Edit by Ragini Abebe [facility] on 11/05/22 13:57 3+ Ragini Abebe 11/05/22 13:57 UA Glucose 250 mg/dL Last Edit by Ragini Abebe [facility] on 11/05/22 13:57 1+ Ragini Abebe 11/05/22 13:57 Results Reviewed Results Reviewed: Laboratory Last Values Urine pH (Auto) 5.0 11/05/22 13:35 Specific Purling (Auto) 1.025 11/05/22 13:35 Urine Protein (Auto) 300 mg/dL 11/05/22 13:35 Glucose (UA)(Auto) 250 mg/dL 11/05/22 13:35 Urine Ketones (Auto) Positive 11/05/22 13:35 Urine Blood (Auto) 200 Ignacio/uL 11/05/22 13:35 Urine Nitrite (Auto) Positive 11/05/22 13:35 Urine Bilirubin (Auto) 4 mg/dL 11/05/22 13:35 Urine Urobilinogen (Auto) 8 mg/dL 11/05/22 13:35 Leukocyte Esterase (Auto) 500 Bang/uL 11/05/22 13:35 NEO: 10/27/22-1302 STATUS: COMP REQ : [id number] RECD: 10/27/22-[address]: Katherine Doss MD COMP: 11/03/22-1358 ENTERED: 10/27/22-[address]: ORDERED: Kidney Stone QUERIES: Kidney Stone Source: [id number] Test Result Flag Reference Site Component 1 SEE NOTE QUM Calcium Oxalate Dihydrate (Weddellite) 10% Calcium Oxalate Monohydrate (Whewellite) 90% See Note 1 Stone Weight 0.009 g QUM Note 1 This test was developed and its analytical performance characteristics have been determined by [employer]. It has not been cleared or approved by the FDA. This assay has been validated pursuant to the CLIA regulations and is used for clinical purposes. THIS TEST WAS PERFORMED AT: [employer] [address] [address] PETER CROWELL MD Stone Source KIDNEY STONE QU Assessment & Plan Assessment & Plan (1) Hydronephrosis: Code(s): N13.30 - Unspecified hydronephrosis (2) Nephrolithiasis: Code(s): N20.0 - Calculus of kidney Plan Stent was removed today in the office. Ordered 24-hour urine collection test. Vitamin B6 100 mg daily was ordered. Follow-up in 10 weeks. Orders: Orders AMB Urinalysis Automated 11/05/22 Z13.9 - Encounter for screening, unspecified AMB Cystoscopy 11/05/22 N20.1 - Calculus of ureter Medications: New pyridoxine (vitamin B6) 100 mg PO DAILY 90 tabs 3RF Patient Instructions: The patient had an opportunity to ask questions regarding treatment plan. All questions were answered. Imaging, Laboratory studies and physical exam results were discussed and reviewed in detail. No major barriers to understanding were identified. The patient expressed understanding and agreement with the above treatment plan.? ? ? The patient is aware they should contact our office by phone for worsening of their current condition or the appearance of new symptoms. Compliance is encouraged with any medications and followup testing that is ordered.? ? ? It is a privilege to be allowed the opportunity to participate in the urologic care of your patient. If you have any questions or concerns regarding treatment for the above conditions please do not hesitate to contact me. The office telephone contact is [phone].? ? ? This note is constructed in part using voice recognition software. While every effort has been made to ensure accuracy motion picture set grip errors may have been included.? ? ? Yours sincerely,? ? ? Katherine Doss MD? Coding Level of Care Code Est Pt Level 3 (33279) Diagnoses Hydronephrosis N13.30 Nephrolithiasis N20.0 CPT Codes Cystoscopy - CPT: 78675-[id number] with stent removal ([id number])
== END 2022-11-05 15:26 | disposition home or self-care (01) ==
PROVIDERS: Visit Provider Urology
DX: N20.1 Calculus of ureter (principal); Z96.0 Presence of urogenital implants; Z13.9 Encounter for screening, unspecified
CPT/HCPCS: 52310

== ENCOUNTER → 2022-11-05 13:26 | Outpatient (BNVA) | payer OTHER, SELFPAY | PROVIDERS: Visit Provider Urology | DX: Z48.816 Encounter for surgical aftercare following surgery on the genitourinary system (principal) | CPT/HCPCS: 52310; 81003 ==

== ENCOUNTER 2024-03-20 15:31 | Outpatient (AMB) | payer OTHER, SELFPAY ==
--- NOTE | 2024-03-20 15:34 | MHC.OFFVIS ---
Intake Visit Reasons: Kidney stones Intake Note: Patient is present for KIDNEY STONES Urology Medication:VITAMIN B6,ATORVASTATIN,AMLODIPINE,HYDROCHLOROTHIAZIDE,PAROXETINE Antibiotic Allergy:NONE Blood Thinner:NONE Parking Meter Installer Required: No Allergies codeine Allergy (Unknown, Verified 03/20/24 15:35) Unknown latex Allergy (Unknown, Verified 03/20/24 15:35) Unknown Medication List - Last Reconciled 03/20/24 by Katherine Doss MD amlodipine 5 mg PO DAILY atorvastatin 80 mg PO BEDTIME hydrochlorothiazide 25 mg PO DAILY hyoscyamine sulfate (Oscimin SL) 0.125 mg sublingual TID PRN oxycodone-acetaminophen 5-325 mg (Percocet) 1 tab PO Q6H PRN paroxetine HCl 40 mg PO pyridoxine (vitamin B6) 100 mg PO DAILY tamsulosin (Flomax) 0.4 mg PO DAILY HPI Comments Details: 03/20/24--Rosaura is a 59-year-old female who was last seen in October 28 4 a kidney stone. The patient states she went to a walk-in clinic on 03/11/2023 due to similar pain on the left side and they gave. Flomax and Pyridium to help with her renal colic symptoms. The patient states she still has some discomfort on the left side but has not needed any pain medication. I will check a renal bladder ultrasound. She states she has tried to cut certain diet but this has been she likes to eat a lot of food groups that she knows she needs to avoid. I have discussed further evaluation with 24 hour urine collection. Urinalysis 2+ protein, on follow-up in the urine persists will refer to Nephrology. Will continue Flomax. 11/05/2022?She is followed today for stent removal/cystoscopy procedure. She was last seen by me on 10/27/2022. She is a status post left ureteroscopy, laser lithotripsy done on 10/27/2022. Discussion with patient: Stone analysis was obtained which came back Calcium Oxalate Dihydrate 10%, and calcium Oxalate Monohydrate 90%. Diet sheet for renal calculi prevention was provided to the patient. Discussed to reduce sodium intake. Discussed to consume adequate amount of water. 11/05/2022: Plan: Stent was removed today in the office. Ordered 24-hour urine collection test. Vitamin B6 100 mg daily was ordered. Follow-up in 10 weeks. [facility] Medical History HTN (hypertension) COPD (chronic obstructive pulmonary disease) Surgical History History of removal of ureteral stent History of ear surgery Hx of breast surgery Hx of section Family History Mother No problems noted. Father No problems noted. Social History Alcohol intake: never Patient Tobacco Use Status: Current everyday Tobacco user Tobacco use type: Cigarette Cigarette Packs Per Day: 0.5 Cigarettes Per Day: 10.0 Substance Use Type: Marijuana Review of Systems Const All systems reviewed & are unremarkable except as noted in HPI and below Reports no additional complaints Eyes Reports no additional complaints ENT Reports no additional complaints Card Reports no additional complaints Resp Reports no additional complaints GI Reports no additional complaints Reports as per HPI Musc Reports no additional complaints Skin/Breast Reports system reviewed and no additional complaints, except as documented Neuro Reports no additional complaints Psych Reports no additional complaints Endo Reports no additional complaints Zoran/Lymph Reports no additional complaints Aller/Immun Reports no additional complaints Results Reviewed Results Reviewed: Results Reviewed Results Reviewed NEO: 10/27/22 STATUS: COMP REQ : [id number] RECD: 10/27/[address]: Katherine Doss MD COMP: 11/03/22-1358 ENTERED: 10/27/22-[address] [facility] [address]: ORDERED: Kidney Stone QUERIES: Kidney Stone Source: [id number] Test Result Flag Reference Site Component 1 SEE NOTE QUM Calcium Oxalate Dihydrate (Weddellite) 10% Calcium Oxalate Monohydrate (Whewellite) 90% See Note 1 Stone Weight 0.009 g QUM Note 1 This test was developed and its analytical performance characteristics have been determined by [employer]. It has not been cleared or approved by the FDA. This assay has been validated pursuant to the CLIA regulations and is used for clinical purposes. THIS TEST WAS PERFORMED AT: [employer] [address] [address] PETER CROWELL MD Stone Source KIDNEY STONE QU Date of Service: 09/22/22 EXAMINATION: CT ABDOMEN AND PELVIS WITHOUT CONTRAST?? CLINICAL INFORMATION: Left lower abdominal pain.?? COMPARISON: None available. FINDINGS: LUNG BASES: The lung bases are clear. Coronary artery calcifications are present.?? LIVER, GALLBLADDER, AND BILIARY TREE: The liver is normal in size, shape, and attenuation. No biliary ductal dilatation there is a 0.7 cm hypoattenuating lesion in segment 6 of the liver which is too small to further characterize.. The gallbladder is unremarkable with no evidence of radiopaque gallstones, gallbladder wall thickening, or obvious pericholecystic inflammatory changes.?? PANCREAS: Unremarkable.?? SPLEEN: Unremarkable.?? ADRENAL GLANDS: Unremarkable.?? KIDNEYS AND URETERS: The kidneys are normal in size, shape, and attenuation. Mild left hydronephrosis. 0.4 cm calculus in the proximal left ureter at the level of L2-L3 BLADDER: Unremarkable.?? GASTROINTESTINAL TRACT: The stomach is unremarkable. Normal caliber of the small bowel. No obstruction. Normal appendix. Colonic diverticulosis without diverticulitis. No wall thickening or inflammation. No free air or free fluid.?? ABDOMINAL WALL: No significant hernia is appreciated.?? LYMPH NODES: Normal. VASCULAR: Normal caliber aorta with moderate atherosclerotic calcification. PELVIC VISCERA: The uterus and adnexa are unremarkable.?? OSSEOUS STRUCTURES: No acute or suspicious osseous abnormality. Degenerative change throughout the spine. Vacuum disc phenomenon seen throughout the lumbar spine. Grade 1 retrolisthesis of L5 on S1. Grade 1 anterolisthesis of L4 on L5.?? IMPRESSION: Mild left hydronephrosis with a 0.4 cm calculus in the proximal left ureter. Assessment & Plan Assessment & Plan (1) Nephrolithiasis: Code(s): N20.0 - Calculus of kidney Category: Medical (2) Left flank pain: Code(s): R10.9 - Unspecified abdominal pain Category: Medical (3) Proteinuria: Code(s): R80.9 - Proteinuria, unspecified Category: Medical Plan We will continue tamsulosin daily. We will check renal bladder ultrasound, discussed metabolic workup with 24 hour urine collection, cont vit b 6 100 mg daily Orders: Orders AMB Urinalysis Automated Today Z13.9 - Encounter for screening, unspecified US retroperitoneal comp Today N20.0 - Calculus of kidney, R10.9 - Unspecified abdominal pain Medications: New tamsulosin (Flomax) 0.4 mg PO DAILY 20 caps 0RF to help pass kidney stones Patient Instructions: The patient had an opportunity to ask questions regarding treatment plan. The patient expressed understanding and agreement with the above treatment plan. The patient is aware they should contact our office by phone for worsening of their current condition or the appearance of new symptoms. Compliance is encouraged with any medications and followup testing that is ordered. It is a privilege to be allowed the opportunity to participate in the urologic care of your patient. If you have any questions or concerns regarding treatment for the above conditions please do not hesitate to contact me. The office telephone contact is [phone]. This note is constructed in part using voice recognition software. While every effort has been made to ensure accuracy medical assembly errors may have been included. Yours sincerely, Katherine Doss MD Coding Level of Care Code Est Pt Level 4 (23584) Complex EM visit Add On G2211 Diagnoses Nephrolithiasis N20.0 Left flank pain R10.9 Proteinuria R80.9
== END 2024-03-20 16:16 | disposition home or self-care (01) ==
LOC: HO.HUSH 15:31
PROVIDERS: Visit Provider Urology
DX: N20.0 Calculus of kidney (principal); R10.9 Unspecified abdominal pain; R80.9 Proteinuria, unspecified; Z13.9 Encounter for screening, unspecified
CPT/HCPCS: 99214; G2211

== ENCOUNTER → 2024-03-20 15:31 | Outpatient (BNVA) | payer OTHER, SELFPAY | PROVIDERS: Visit Provider Urology | DX: N20.0 Calculus of kidney (principal); R10.9 Unspecified abdominal pain; R80.9 Proteinuria, unspecified | CPT/HCPCS: 81003; 99212 ==

== ENCOUNTER 2024-05-30 15:20 | Outpatient (REF) | payer OTHER, SELFPAY ==
--- NOTE | ~2024-05-30 | US_ITS ---
. EXAMINATION: Ultrasound renal, bilaterally. CLINICAL INFORMATION: Left Flank pain. Nephrolithiasis. COMPARISON: Correlated to CT dated September 22, 2022. TECHNIQUE: Real-time ultrasound of the kidneys using grayscale and color Doppler technique. FINDINGS: Right kidney: 10 x 4 x 5 cm. Normal echotexture. Normal renal cortical thickness. No hydronephrosis. No solid or cystic lesion. Normal flow on color Doppler interrogation of the renal hilum. Left kidney: 11 x 5 x 6 cm. Normal echotexture. Normal renal cortical thickness. There is a 4.5 cm lobulated hypoechoic lesion at the midportion/lower pole junction of the parapelvic/renal hilum with minimal flow on color Doppler interrogation. US/US renal BI IMPRESSION: 4.5 cm lobulated lesion/mass, parapelvic left kidney. Recommend further imaging evaluation with IV contrast enhanced CT versus MRI. Electronically signed by: Robert De Guzman MD 06/01/2024 08:45 AM EDT
== END 2024-05-30 15:21 | disposition home or self-care (01) ==
LOC: HO.US 15:20
PROVIDERS: Visit Provider Urology
DX: N20.0 Calculus of kidney (principal); R10.9 Unspecified abdominal pain
CPT/HCPCS: 76775

== ENCOUNTER → 2024-05-30 15:25 | Outpatient (BNV) | payer OTHER, SELFPAY | PROVIDERS: Visit Provider Radiology Diagnostic Radiology | DX: N20.0 Calculus of kidney (principal); R10.9 Unspecified abdominal pain | CPT/HCPCS: 76775 ==